=== PATIENT | female | born 1945 | race Caucasian/White ===

== ENCOUNTER → 2016-08-19 | Outpatient (CLI) | payer BC ==
[~2016-08-19] MED LIST: DULO60CA44 PO; METO1TAB69 PO; MULT-845 PO; OXYC-57 PO; PRLSR20 PO
[2016-08-19 12:20] LABS: BASO % 0.6 %; BASO ABS # 0.06 K/uL (0-0.2); COMPLETE YES; EOS % 5.6 %; HEMATOCRIT 39.9 % (37-47); IG% 0.2 %; LYMPH % 19.4 %; LYMPH ABS # 1.88 K/uL (1.2-3.4); MEAN CELL VOLUME 91.1 fL (80-100); MEAN CORPUSCULAR HEMOGLOBIN 32.2 pg (25-34); MEAN CORPUSCULAR HGB CONC 35.3 g/dl (32-36); MEAN PLATELET VOLUME 12.2 fL (7.4-10.4); MONO % 8.7 %; NEUT % 65.5 %; PLATELET COUNT 236 K/uL (130-400); RED BLOOD COUNT 4.38 M/uL (4.2-5.4); WHITE BLOOD COUNT 9.71 K/uL (4.8-10.8)
[2016-08-19 12:37] LABS: BLOOD UREA NITROGEN 20 mg/dl (7-18); CARBON DIOXIDE 29 mmol/L (21-32); CHLORIDE 102 mmol/L (98-107); CREATININE 0.95 mg/dl (0.60-1.20); GLUCOSE 93 mg/dl (70-99); POTASSIUM 3.8 mmol/L (3.5-5.1); SODIUM 139 mmol/L (136-145)
[2016-08-19 12:38] LABS: ALT/SGPT 26 U/L (12-78); AST/SGOT 17 U/L (15-37); CALCIUM 8.8 mg/dl (8.5-10.1)
[2016-08-19 12:46] LABS: ALB/GLOB RATIO 1.1 (0.9-2); ALKALINE PHOSPHATASE 89 U/L (45-117)
== END | disposition home or self-care (01) ==
LOC: C.LABPVFM 10:28
PROVIDERS: ATTEND Family Medicine
DX: M79.7 Fibromyalgia (principal); I10 Essential (primary) hypertension; F41.9 Anxiety disorder, unspecified

== ENCOUNTER → 2016-09-15 | Outpatient (CLI) | payer BC ==
[2016-09-15 19:14] LABS: LYME DISEASE AB IGG NEG (NEG); LYME DISEASE AB IGM NEG (NEG)
--- NOTE | 2016-09-23 08:27 | CODING QUERY MEDICAL NECESSITY ---
SUPPORTING DIAGNOSIS NEEDED A supporting diagnosis is required for the test/procedure performed on this patient in order for us to be reimbursed by the patient's insurance. Please provide a supporting diagnosis for the following test/procedure listed below next to the test name along with your signature. *If there is no additional diagnosis for this patient that would support the following test/procedure please document that below next to the test/procedure. Test(s)/Procedure(s) that require a supporting diagnosis: * VITAMIN D 25-HYDROXY DIAGNOSIS: * DOS: 09/15/16 Provider Signature: Date: Thank you Debbie Munoz Health Information Management Once completed, please kindly fax back to [phone] For questions please call [phone]
== END | disposition home or self-care (01) ==
LOC: C.LABPVFM 13:07
PROVIDERS: ATTEND Family Medicine
DX: R53.83 Other fatigue (principal); E55.9 Vitamin D deficiency, unspecified; S22.000A Wedge compression fracture of unspecified thoracic vertebra, initial encounter for closed fracture; M62.838 Other muscle spasm; X58.XXXA Exposure to other specified factors, initial encounter

== ENCOUNTER → 2017-04-13 | Outpatient (CLI) | payer BC ==
--- NOTE | 2017-04-13 16:43 | MAMMOGRAPHY REPORT ---
BILATERAL DIGITAL SCREENING MAMMOGRAM WITH CAD: 04/13/2017 CLINICAL HISTORY: Routine screening. Patient has no complaints. TECHNIQUE: Bilateral CC and MLO views were obtained. Current study was also evaluated with a Compute r Aided Detection (CAD) system. COMPARISON: Comparison is made to exams dated: 04/09/2016 mammogram, 04/08/2015 mammogram, 04/06/2014 ma mmogram, 03/13/2013 mammogram, 03/10/2012 mammogram - [facility], and 03/13/2011 mammogra [facility]. BREAST COMPOSITION: There are scattered areas of fibroglandular density in both breasts. FINDINGS: A linear scar marker overlies the upper outer anterior left breast. There are two 8 mm no dular asymmetries in the slightly medial anterior left breast, best seen on the CC view, may possibly project in the 6:00 axis as seen on the MLO view. Additional spot compression tomosynthesis views a nd possibly ultrasound are recommended for further characterization. There is a stable benign coarse calcification in the left upper outer quadrant and expected architecture intern ural distortion at the surgical site. No other suspicious mass, architectural distortion or cluster o f microcalcifications is seen. IMPRESSION: ACR BI-RADS CATEGORY 0: INCOMPLETE EVALUATION: NEED ADDITIONAL IMAGING EVALUATION The two 8 mm nodular asymmetries in the medial, anterior left breast need additional evaluation. The patient will be called to schedule an appointment. Approximately 10% of breast cancers are not detected with mammography. A negative mammographic report should not delay biopsy if a clinically suggestive mass is present. Amisha Millard M.D. ay/:04/13/2017 14:55:03 Special Education Instructor: Medina JOHNSON(R)(M)(BD), [facility] letter sent: Addl Imaging 0 BI-RADS Code: ACR BI-RADS Category 0: Incomplete Evaluation: Need Additional Imaging Evaluation
== END | disposition home or self-care (01) ==
LOC: C.MAMM 13:54
PROVIDERS: ATTEND Family Medicine
DX: Z12.31 Encounter for screening mammogram for malignant neoplasm of breast (principal); N64.89 Other specified disorders of breast

== ENCOUNTER → 2017-04-19 | Outpatient (CLI) | payer BC ==
--- NOTE | 2017-04-19 15:52 | MAMMOGRAPHY REPORT ---
UNILATERAL LEFT DIGITAL DIAGNOSTIC MAMMOGRAM TOMOSYNTHESIS AND TARGETED LEFT ULTRASOUND: 04/19/2017 CLINICAL HISTORY: 72-year-old woman called back from screening mammography for 2 nodular asymmetries in the left breast. TECHNIQUE: Left CC and MLO 2-D and tomosynthesis images were obtained. COMPARISON: Comparison is made to exams dated: 04/13/2017 mammogram, 04/09/2016 mammogram, 04/08/2015 [facility] mogram, 04/06/2014 mammogram, 03/13/2013 mammogram, and 03/10/2012 mammogram - [facility] BREAST COMPOSITION: There are scattered areas of fibroglandular density in the left breast. FINDINGS: There is expected architectural distortion and benign calcifications in the upper outer ant erior left breast, at a site of prior surgery. The spot compression views of the left breast demonst rate persistence of a circumscribed and lobulated, 5.5 x 12.0 x 5.5 mm mass. The second nodular asym metry partially effaces on the spot compression CC view and no other definite mass is seen on the cor responding tomosynthesis images. Likewise, no other suspicious abnormality is seen on the spot compr ession MLO views. No focal area of distortion or suspicious microcalcification. Targeted ultrasound was performed in the left breast with particular attention to the slightly medial breast and 12:00, retroareolar and 6:00 axes. A lobulated anechoic benign cyst is identified in the 8:00 periareolar left breast measuring 9.9 x 3.2 x 10.2 mm. There is an elongated parallel hypoecho ic cyst versus duct ectasia in the 9:00 left breast, 3 cm from the nipple, measuring 3.8 x 1.5 x 4.2 mm. A tubular oval parallel anechoic cyst versus focal duct ectasia in the 8:00 left breast, 3 cm fr om the nipple, measuring 3.5 x 1.3 x 2.6 mm. IMPRESSION: ACR-BI-RADS CATEGORY 3: PROBABLY BENIGN, TARGETED ULTRASOUND ACR-BI-RADS CATEGORY 3: PRO BABLY BENIGN 1. There is persistence of the more anterior of the two 8mm nodular asymmetries in the anterior left breast with the supplemental spot compression tomosynthesis images. This anterior asymmetry persist s as a lobulated and circumscribed mammographic mass and corresponds to a benign simple cyst on ultra sound. The second asymmetry effaces and no other suspicious sonographic correlate was seen on a few scattered areas of tiny benign cysts and/or duct ectasia. However, a short interval follow-up left d iagnostic tomosynthesis mammogram and possible repeat ultrasound is recommended to ensure stability i n 6 months, given the conspicuous nature of the second asymmetry on the initial screening exam. Approximately 10% of breast cancers are not detected with mammography. A negative mammographic report should not delay biopsy if a clinically suggestive mass is present. Amisha Millard M.D. ay/:04/19/2017 14:00:24 Clinical Nurse Educator: Mireya JOHNSON(Maeve)(M), [facility] letter sent: Follow Up Recommended 3 BI-RADS Code: ACR-BI-RADS Category 3: Probably Benign Ultrasound BI-RADS: ACR-BI-RADS Category 3: Pr obably Benign
== END | disposition home or self-care (01) ==
LOC: C.MAMM 09:53
PROVIDERS: ATTEND Family Medicine
DX: N63 Unspecified lump in breast (principal)

== ENCOUNTER → 2017-05-26 | Outpatient (CLI) | payer BC ==
[2017-05-26 13:20] LABS: ALT/SGPT 27 U/L (12-78); AST/SGOT 19 U/L (15-37); BLOOD UREA NITROGEN 14 mg/dl (7-18); BUN/CREATININE RATIO 17.8 (10-20); CALCIUM 8.9 mg/dl (8.5-10.1); CARBON DIOXIDE 28 mmol/L (21-32); CHLORIDE 106 mmol/L (98-107); CREATININE 0.81 mg/dl (0.60-1.20); GLUCOSE 96 mg/dl (70-99); SODIUM 140 mmol/L (136-145)
[2017-05-26 13:23] LABS: ALKALINE PHOSPHATASE 80 U/L (45-117); CHOLESTEROL 199 mg/dl (0-200); CHOLESTEROL/HDL RATIO 3.4; HDL CHOLESTEROL 59 mg/dl; LDL CHOLESTEROL CALCULATED 113 mg/dl; TRIGLYCERIDES 136 mg/dl (0-150); VERY LOW DENSITY LIPOPROT CALC 27 mg/dl
== END | disposition home or self-care (01) ==
LOC: C.LABPVFM 07:53
PROVIDERS: ATTEND Family Medicine
DX: Z00.00 Encounter for general adult medical examination without abnormal findings (principal); I10 Essential (primary) hypertension

== ENCOUNTER → 2017-06-02 | Outpatient (CLI) | payer BC ==
[~2017-06-02] MED LIST changes: +METO100T44 PO; -METO1TAB69 PO
--- NOTE | 2017-06-02 15:56 | DIAGNOSTIC IMAGING REPORT ---
STERNUM MIN 2 VIEWS CLINICAL HISTORY: Sternal pain. Patient with an object and her a crack COMPARISON STUDY: No previous studies for comparison. FINDINGS: The examination is limited from a technical standpoint due to the patient's large body habitus. No sternal fractures are visualized. It should be noted that sternal fractures can be occult on conventional radiographic evaluation IMPRESSION: No sternal fractures identified on conventional radiographic evaluation Electronically signed by: Mauricio Ramsay M.D. 06/02/2017 3:55 PM Dictated Date/Time: 06/02/2017 3:53 PM
== END | disposition home or self-care (01) ==
LOC: C.RADPV 15:22
PROVIDERS: ATTEND Family Medicine
DX: R07.89 Other chest pain (principal); F39 Unspecified mood [affective] disorder

== ENCOUNTER → 2017-08-30 | Outpatient (CLI) | payer BC | END | disposition home or self-care (01) | LOC: C.MAMM 09:12 | PROVIDERS: ATTEND Family Medicine | DX: Z13.820 Encounter for screening for osteoporosis (principal); M81.0 Age-related osteoporosis without current pathological fracture; M85.89 Other specified disorders of bone density and structure, multiple sites ==

== ENCOUNTER → 2017-10-18 | Outpatient (CLI) | payer BC ==
--- NOTE | 2017-10-18 15:19 | MAMMOGRAPHY REPORT ---
UNILATERAL LEFT DIGITAL DIAGNOSTIC MAMMOGRAM TOMOSYNTHESIS WITH CAD AND TARGETED LEFT ULTRASOUND: 10/07 CLINICAL HISTORY: 72-year-old woman presents for follow-up of two nodular asymmetries in the anterior left breast. At the time of diagnostic workup, only one nodular area persisted and was thought to c orrespond to a cyst identified in the 8:00 periareolar left breast on ultrasound. TECHNIQUE: Left breast tomosynthesis in addition to standard 2D mammography was performed. Current st udy was also evaluated with a Computer Aided Detection (CAD) system. COMPARISON: Comparison is made to exams dated: 04/19/2017 ultrasound, 04/19/2017 mammogram, 04/13/2017 m ammogram, 04/09/2016 mammogram, 04/08/2015 mammogram, and 04/06/2014 mammogram - [facility]. BREAST COMPOSITION: There are scattered areas of fibroglandular density in the left breast. FINDINGS: A linear scar marker overlies the upper outer middle one third of the left breast. There i s expected architectural distortion and benign calcification at the surgical site in the left upper o uter quadrant. On the 2D right CC view, 2 nodular asymmetries are again seen in the anterior breast, slightly medial to the posterior nipple line. The anterior nodular asymmetry versus mass measures 5 x 10 mm, and the posterior measures 4 x 5 mm. When comparing back to prior available mammograms, th e appearance is similar to the 2016, 2015, 2014 and 2012 mammograms, suggesting benignity. No [place] mass, architectural distortion or cluster of microcalcifications is seen in the left breast. Targeted ultrasound was performed in the medial left breast. A benign anechoic cyst is again seen in the 8:00 periareolar left breast, measuring 9.2 x 3.6 x 10.0 mm, correlating with the more anterior of the nodular asymmetries seen mammographically. In the 9:00 left breast, 3 cm from the nipple, the re is an isoechoic lobulated and circumscribed mass versus focal duct ectasia versus normal fat lobul e measuring 4.0 x 1.6 x 4.2 mm. This may correlate with the second more posterior nodular asymmetry in the slightly medial left breast. Given the mammographic stability and benign sonographic appearan ce this is probably benign. Incidental note is made of an anechoic benign simple cyst in the 12:00 l eft breast measuring 3 mm. IMPRESSION: ACR-BI-RADS CATEGORY 3: PROBABLY BENIGN, TARGETED ULTRASOUND ACR-BI-RADS CATEGORY 3: PRO BABLY BENIGN 1. The left 2D CC view appears similar to the prior screening mammogram performed on 04/13/2017, with 2 nodular asymmetries in the slightly medial anterior left breast. However, the appearance is also s omewhat similar dating back to the 2013 mammogram, and no definite suspicious sonographic correlate i dentified. However, another close follow-up left diagnostic tomosynthesis mammogram and repeat targe jason ultrasound with particular attention to the 9:00 axis is recommended in 6 months. 2. Annual right mammography will also be due at that time. These results and recommendations were discussed with the patient at the time of the exam. She tenta tively scheduled a follow-up appointment prior to leaving our department. Approximately 10% of breast cancers are not detected with mammography. A negative mammographic report should not delay biopsy if a clinically suggestive mass is present. Amisha Millard M.D. ay/:10/18/2017 11:29:34 Supervisor Filtration: Ana JOHNSON(Maeve)(M), [facility] letter sent: Follow Up Recommended 3 BI-RADS Code: ACR-BI-RADS Category 3: Probably Benign Ultrasound BI-RADS: ACR-BI-RADS Category 3: Pr obably Benign
== END | disposition home or self-care (01) ==
LOC: C.MAMM 10:40
PROVIDERS: ATTEND Family Medicine
DX: N64.9 Disorder of breast, unspecified (principal)

== ENCOUNTER → 2018-03-08 | Outpatient (CLI) | payer BC ==
[~2018-03-08] MED LIST changes: +AMLO5TAB3 PO; +CARV3.122 PO; +CHOL100010 PO; +Calcium PO
[2018-03-08 14:13] LABS: ALBUMIN 4.1 gm/dl (3.4-5.0); ALKALINE PHOSPHATASE 74 U/L (45-117); ALT/SGPT 26 U/L (12-78); AST/SGOT 22 U/L (15-37); BLOOD UREA NITROGEN 12 mg/dl (7-18); CALCIUM 9.1 mg/dl (8.5-10.1); CARBON DIOXIDE 29 mmol/L (21-32); CREATININE 0.77 mg/dl (0.60-1.20); GLUCOSE 99 mg/dl (70-99); PHOSPHORUS 3.5 mg/dl (2.5-4.9); SODIUM 136 mmol/L (136-145)
== END | disposition home or self-care (01) ==
LOC: C.LABPVFM 08:33
PROVIDERS: ATTEND Internal Medicine Endocrinology, Diabetes & Metabolism
DX: M81.0 Age-related osteoporosis without current pathological fracture (principal); I10 Essential (primary) hypertension

== ENCOUNTER → 2018-03-09 | Outpatient (CLI) | payer BC | END | disposition home or self-care (01) | LOC: C.LABPVFM 17:29 | PROVIDERS: ATTEND Internal Medicine Endocrinology, Diabetes & Metabolism | DX: I10 Essential (primary) hypertension (principal); M81.0 Age-related osteoporosis without current pathological fracture ==

== ENCOUNTER → 2018-03-21 | Day surgery (SDC) | payer BC ==
[~2018-03-21] VITALS: Ht 167.6 cm; Wt 83.5 kg
[~2018-03-21] MED LIST changes: +ACETAMINOPHEN 500 MG TAB PO SCH; +ZOLEDRONIC ACID INJ 5 MG in EMPTY BAG 0 ML IV SCH
[2018-03-21 10:11] VITALS: BP 151/81; PULSE 75; TEMP 36.9; O2SAT 98; Ht 167.6 cm; Wt 83.5 kg
== END | disposition home or self-care (01) ==
LOC: C.MTU 09:59
PROVIDERS: ATTEND Internal Medicine Endocrinology, Diabetes & Metabolism
DX: M81.0 Age-related osteoporosis without current pathological fracture (principal)

== ENCOUNTER 2020-01-31 03:12 | Observation (INO) ==
[2020-01-31] MEDS ORDERED: STAT IV Infusion **Titration per Protocol STA (03:43)
[2020-01-31] MEDS ORDERED: dilTIAZem HCl 5 MG/ML 5 ML VIAL IV STA (03:43)
--- NOTE | 2020-01-31 03:43 | Emergency Department Note ---
History of Present Illness General Chief complaint: Cardiac Assessment Stated complaint: CHEST TIGHTNESS,PAIN DOWN ARMS,SOB,PB UP Time Seen by Provider: 01/31/20 03:24 Source: patient Mode of arrival: ambulatory Limitations: no limitations History of Present Illness Provider complaint: Chest tightness Onset (ago): hour(s) 2 Location: chest Radiation: extremity Severity: moderate Pain Consistency: + colicky Maximum Pain Intensity: 3 Current Pain Intensity: 3 Quality: + constant Relieved By: + none Exacerbated By: + movement Associated symptoms: + nausea/vomiting; no headaches and no syncope Treatments prior to arrival: aspirin This is a 74-year-old female who presents from home complaining of abrupt onset of chest tightness that woke her up from sleep at 1:30 AM this morning. Patient states she felt in her usual state of health when she went to bed. Patient notes that on Wednesday she felt lightheaded and anxious and saw her family doctor. At that time her blood pressure was found to be elevated so her usual Coreg was doubled. Patient states over the weekend she felt slightly improved, and then this evening woke up with chest tightness, nausea. Patient denies any vomiting. Denies any recent fevers or URI symptoms. Patient denies any change in bowel or bladder function. Denies any lower extremity edema. Patient states the pain feels as though it radiates into her bilateral upper extremities and extends down to the level of the elbows. Patient states she did feel slightly lightheaded again and had a sense of a racing heart. Patient states she felt slightly anxious again tonight, but does not recall a sense of racing heart or palpitations with her anxiety on Wednesday. Patient denies any prior history of cardiac evaluation, CAD, or dysrhythmia. Patient denies any recent alcohol use. Denies any recent change in diet. Patient states no change in her usual 2 cups of coffee every morning. Pt seen during a time of high acuity and national emergency pandemic while wearing PPE. Home Medications Home Medications Medication Instructions Recorded Confirmed Type aspirin 81 mg chewable tablet 81 mg PO QAM 02/21/19 01/31/20 History cholecalciferol (vitamin D3) 25 1,000 units PO QAM #90 cap 05/15/19 01/31/20 History mcg (1,000 unit) capsule vitamin B complex 1 cap PO QAM 10/02/19 01/31/20 History meclizine 25 mg tablet 25 mg PO TID PRN #30 tab 10/10/19 01/31/20 Rx amitriptyline 25 mg tablet 25 mg PO DAILY #30 tab 01/26/20 01/31/20 Rx amlodipine 5 mg tablet 5 mg PO QAM #90 tab 01/26/20 01/31/20 Rx omeprazole 40 mg capsule,delayed 40 mg PO QAM #30 cap 01/26/20 01/31/20 Rx release apixaban [Eliquis] 5 mg PO BID 30 Days #60 tab 01/31/20 Rx carvedilol 12.5 mg PO BID 30 Days #60 tab 01/31/20 Rx Allergies Allergy/AdvReac Type Severity Reaction Status Date / Time celecoxib Allergy Intermediate RASH Verified 01/31/20 04:18 levofloxacin Allergy Unknown HIVES Verified 01/31/20 04:18 meperidine AdvReac Mild n/v Verified 01/31/20 04:18 Past Med/Surg History Medical History Diverticulitis (Resolved) Vertigo Surgical History H/O oral surgery H/O tubal ligation Hx of appendectomy (Resolved) Hx of cholecystectomy S/P colon resection S/P tonsillectomy Family History Mother Breast cancer Hypertension Father Colorectal cancer Hypertension Prostate cancer Denies family history of Ovarian cancer Diabetes Myocardial infarction Social History Preferred Language: Bahamian Communication Ability: Effective 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 and A total of 10 systems reviewed and were otherwise negative Physical Exam Vital Signs Vital Signs - 24 hr 01/31/20 05:16 01/31/20 05:30 01/31/20 05:52 Pulse Rate 144 H 135 H 135 H Pulse Rate from SpO2 Sensor 149 H 142 H 135 H Respiratory Rate 11 L 16 13 Blood Pressure 160/100 H 153/107 H 157/98 H Blood Pressure Mean 123 124 139 Pulse Oximetry 97 97 97 Oxygen Delivery Method Room Air Room Air Room Air 01/31/20 06:15 01/31/20 06:18 Pulse Rate 148 H 145 H Pulse Rate from SpO2 Sensor Respiratory Rate 13 Blood Pressure 134/108 H 134/108 H Blood Pressure Mean 114 Pulse Oximetry 96 Oxygen Delivery Method Room Air GENERAL: alert, anxious and uncomfortable appearing, well nourished, no distress, non-toxic EYE EXAM: normal conjunctiva, PERRL and EOM's grossly intact OROPHARYNX: no exudate, no erythema, lips, buccal mucosa, and tongue normal and mucous membranes are moist NECK: supple, no nuchal rigidity, no adenopathy, non-tender LUNGS: Clear to auscultation. Normal chest wall mechanics, no w/r/r HEART: no murmurs, S1 normal and S2 normal, patient found to be in rapid A. fib on telemetry in the 150s ABDOMEN: abdomen soft, non-tender, normo-active bowel sounds, no masses, no rebound or guarding. BACK: Back is symmetrical on inspection and there is no deformity, no midline tenderness, no CVA tenderness. SKIN: no rashes and no bruising UPPER EXTREMITIES: upper extremities are grossly normal. FROM, nml pulses b/l. LOWER EXTREMITIES: No pitting edema. FROM, nml pulses b/l. NEURO EXAM: Normal sensorium, cranial nerves II-XII grossly intact, normal speech, no gross weakness of arms, no gross weakness of legs. Gross sensation intact. Course Course 0345: Patient rechecked and updated. Still in a rapid atrial fibrillation. 0455: Patient's heart rate range slightly lower although still rapid. IV drip infusing. Patient updated on additional results. 0612: Case discussed with hospitalist who is seen and evaluated the patient at bedside. Administered Medications Discontinued Medications Aspirin (A[facility]in Chew) [facility] Stop: 03/01/20 08:59 Last Admin: 01/31/20 09:18 Dose: 81 mg Documented by: [id number] Carvedilol (Coreg) Confirm Administered Dose 12.5 mg .ROUTE .STK-MED ONE Stop: 01/31/20 07:00 Last Admin: 01/31/20 07:00 Dose: 12.5 mg Documented by: [id number] Carvedilol (Coreg) 12.5 mg PO BID BRANDYN Stop: 03/01/20 09:14 Last Admin: 01/31/20 09:57 Dose: 12.5 mg Documented by: [id number] Diltiazem HCl (Cardizem) 20 mg IV NOW STA Stop: 01/31/20 03:44 Last Admin: 01/31/20 03:51 Dose: 20 mg Documented by: [id number] Cosigned by: [id number] Famotidine (Pepcid 20mg Iv Push) 20 mg IV ONE STA Stop: 01/31/20 05:00 Last Admin: 01/31/20 05:19 Dose: 20 mg Documented by: [id number] Heparin Sodium/Dextrose () 1 ea N/A ONE ONE; Protocol Stop: 01/31/20 04:53 Last Admin: 01/31/20 05:20 Dose: 1 ea Documented by: [id number] Heparin Sodium/Dextrose (Heparin Sodium/Dextrose) Confirm Administered Dose 25,000 units IV .STK-MED ONE Stop: 01/31/20 05:03 Last Admin: 01/31/20 05:20 Dose: Not Given Documented by: [id number] Diltiazem HCl 125 mg/ Dextrose 125 mls @ 5 mls/hr IV .Q24H BRANDYN; Protocol Stop: 03/01/20 03:44 Last Titration: 01/31/20 08:07 Dose: 0 mg/hr, 0 mls/hr Documented by: [id number] Cosigned by: [id number] Titration: 01/31/20 06:24 Dose: 0 mg/hr, 0 mls/hr Documented by: [id number] Cosigned by: [id number] Titration: 01/31/20 05:41 Dose: 15 mg/hr, 15 mls/hr Documented by: [id number] Cosigned by: [id number] Titration: 01/31/20 04:46 Dose: 10 mg/hr, 10 mls/hr Documented by: [id number] Cosigned by: [id number] Admin: 01/31/20 04:33 Dose: 5 mg/hr, 5 mls/hr Documented by: [id number] Cosigned by: [id number] Sodium Chloride (Nss 1000ml) 1,000 mls @ 125 mls/hr IV .Q8H BRANDYN Stop: 03/01/20 03:44 Last Admin: 01/31/20 03:55 Dose: 125 mls/hr Documented by: [id number] Heparin Sodium/Dextrose (Heparin Sodium/Dextrose) 25,000 units in 500 mls @ 16 mls/hr IV .Q24H BRANDYN; Protocol Stop: 03/01/20 04:59 Last Admin: 01/31/20 05:19 Dose: 800 units/hr, 16 mls/hr Documented by: [id number] Cosigned by: [id number] Potassium Chloride (K Silas / Wtr) 10 meq in 100 mls @ 100 mls/hr IV ONE ONE Stop: 01/31/20 07:41 Last Infusion: 01/31/20 08:08 Dose: 0 mls/hr Documented by: [id number] Admin: 01/31/20 06:48 Dose: 100 mls/hr Documented by: [id number] Potassium Chloride/Sodium Chloride (Normal Saline W/20 Meq Kcl) 20 meq in 1,000 mls @ 100 mls/hr IV .Q10H BRANDYN Stop: 03/01/20 08:04 Last Admin: 01/31/20 09:17 Dose: 100 mls/hr Documented by: [id number] Metoprolol Tartrate (Lopressor) 5 mg IV NOW STA Stop: 01/31/20 06:15 Last Admin: 01/31/20 06:26 Dose: Not Given Documented by: [id number] Metoprolol Tartrate (Lopressor) Confirm Administered Dose 5 mg IV .STK-MED ONE Stop: 01/31/20 06:18 Last Admin: 01/31/20 06:18 Dose: 5 mg Documented by: [id number] Metoprolol Tartrate (Lopressor) 5 mg IV Q5M PRN PRN Reason: Tachycardia Stop: 03/01/20 06:28 Last Admin: 01/31/20 06:54 Dose: 5 mg Documented by: [id number] Metoprolol Tartrate (Lopressor) 5 mg IV NOW STA Stop: 01/31/20 06:30 Last Admin: 01/31/20 06:39 Dose: 5 mg Documented by: [id number] Miscellaneous () 1 ea N/A NOW STA Stop: 01/31/20 03:44 Last Admin: 01/31/20 04:33 Dose: 1 ea Documented by: [id number] Pantoprazole Sodium (Protonix) 40 mg PO [facility] Stop: 03/01/20 08:59 Last Admin: 01/31/20 09:18 Dose: 40 mg Documented by: [id number] Potassium Chloride (Klor-Con M20) 40 meq PO NOW STA Stop: 01/31/20 06:39 Last Admin: 01/31/20 06:48 Dose: 40 meq Documented by: [id number] Potassium Chloride/Sodium Chloride (Normal Saline W/20 Meq Kcl) Confirm Administered Dose 20 meq .ROUTE .STK-MED ONE Stop: 01/31/20 06:41 Last Admin: 01/31/20 06:48 Dose: 20 meq Documented by: [id number] Vitamin B Complex (Vitamin B Complex) 1 tab PO [facility] Stop: 03/01/20 08:59 Last Admin: 01/31/20 09:17 Dose: 1 tab Documented by: [id number] Vitamin D (Vitamin D3) 1,000 units PO [facility] Stop: 03/01/20 08:59 Last Admin: 01/31/20 09:17 Dose: 1,000 units Documented by: [id number] Critical Care Time Critical Care Time: Yes Total Critical Care Time: 38 Critical care of 38 min performed to assess and manage high likelihood of life- threatening dysrhythmia, involving labs and imaging performed with assessment to evaluate atrial fibrillation with RVR diagnosis with frequent reassessment. This time includes bedside time, treatment discussions with patient/family/consultants, documentation time and excludes procedure time. Medical Decision Making Differential Diagnosis Differential diagnoses includes but is not limited to acute coronary syndrome, myocardial infarction, pericarditis, pulmonary embolus, aortic dissection, pneumonia, pneumothorax, musculoskeletal, shingles, esophageal. Medical Records Attestation: I reviewed the patient's medical records. Home Medications Current Medication List: was personally reviewed by me Laboratory Data Result diagrams: 01/31/20 03:40 01/31/20 05:58 Lab Results 01/31/20 01/31/20 01/31/20 Range/Units 03:40 03:40 03:40 WBC 8.65 (4.8-10.8) K/uL RBC 5.13 (4.2-5.4) M/uL Hgb 16.8 H (12.0-16.0) g/dL Hct 47.3 H (37-47) % MCV 92.2 (80-100) fL MCH 32.7 (25-34) pg MCHC 35.5 (32-36) g/dL RDW Std Deviation 41.4 (36.4-46.3) fL RDW Coeff of Manju 12.2 (11.5-14.5) % Plt Count 268 (130-400) K/uL MPV 11.9 H (7.4-10.4) fL Immature Gran % (Auto) 0.3 % Neut % (Auto) 64.0 % Lymph % (Auto) 21.3 % [place] % (Auto) 9.7 % Eos % (Auto) 4.2 % Baso % (Auto) 0.5 % Neut # (Auto) 5.54 (1.4-6.5) K/uL Lymph # (Auto) 1.84 (1.2-3.4) K/uL [place] # (Auto) 0.84 H (0.11-0.59) K/uL Eos # (Auto) 0.36 (0-0.5) K/uL Baso # (Auto) 0.04 (0-0.2) K/uL Immature Gran # (Auto) 0.03 H (0.00-0.02) K/uL Sodium 138 (136-145) mmol/L Potassium (3.5-5.1) mmol/L Chloride 103 (98-107) mmol/L Carbon Dioxide 28 (21-32) mmol/L Anion Gap 7.0 (3-11) BUN 13 (7-18) mg/dl Creatinine 0.80 (0.6-1.2) mg/dl Est Cr Clr Drug Dosing 68.2 ml/min Est GFR ( Amer) 84.8 Est GFR (Non-Af Amer) 73.1 BUN/Creatinine Ratio 16.9 (10-20) Glucose 118 H (70-99) mg/dl Calcium 9.7 (8.5-10.1) mg/dl Magnesium (1.8-2.4) mg/dl Total Bilirubin 0.7 (0.2-1) mg/dl AST (15-37) U/L ALT 24 (12-78) U/L Alkaline Phosphatase 99 (45-117) U/L Troponin I < 0.015 (0-0.045) ng/ml NT-Pro-B Natriuret Pep 426 (0-900) pg/ml Total Protein 9.0 H (6.4-8.2) gm/dl Albumin 4.2 (3.4-5.0) gm/dl Globulin 4.8 H (2.5-4.0) gm/dl Albumin/Globulin Ratio 0.9 (0.9-2) Lipase 133 (73-393) U/L TSH 5.350 H (0.300-4.500) uIu/ml Free T4 1.14 (0.8-1.6) ng/dl Lyme Disease IgG Ab Cancelled Lyme Disease IgM Ab Cancelled 01/31/20 01/31/20 01/31/20 Range/Units 05:21 05:21 05:58 WBC (4.8-10.8) K/uL RBC (4.2-5.4) M/uL Hgb (12.0-16.0) g/dL Hct (37-47) % MCV (80-100) fL MCH (25-34) pg MCHC (32-36) g/dL RDW Std Deviation (36.4-46.3) fL RDW Coeff of Manju (11.5-14.5) % Plt Count (130-400) K/uL MPV (7.4-10.4) fL Immature Gran % (Auto) % Neut % (Auto) % Lymph % (Auto) % [place] % (Auto) % Eos % (Auto) % Baso % (Auto) % Neut # (Auto) (1.4-6.5) K/uL Lymph # (Auto) (1.2-3.4) K/uL [place] # (Auto) (0.11-0.59) K/uL Eos # (Auto) (0-0.5) K/uL Baso # (Auto) (0-0.2) K/uL Immature Gran # (Auto) (0.00-0.02) K/uL Sodium (136-145) mmol/L Potassium Cancelled 3.5 (3.5-5.1) mmol/L Chloride (98-107) mmol/L Carbon Dioxide (21-32) mmol/L Anion Gap (3-11) BUN (7-18) mg/dl Creatinine (0.6-1.2) mg/dl Est Cr Clr Drug Dosing ml/min Est GFR ( Amer) Est GFR (Non-Af Amer) BUN/Creatinine Ratio (10-20) Glucose (70-99) mg/dl Calcium (8.5-10.1) mg/dl Magnesium Cancelled 2.2 (1.8-2.4) mg/dl Total Bilirubin (0.2-1) mg/dl AST Cancelled 18 (15-37) U/L ALT (12-78) U/L Alkaline Phosphatase (45-117) U/L Troponin I (0-0.045) ng/ml NT-Pro-B Natriuret Pep (0-900) pg/ml Total Protein (6.4-8.2) gm/dl Albumin (3.4-5.0) gm/dl Globulin (2.5-4.0) gm/dl Albumin/Globulin Ratio (0.9-2) Lipase (73-393) U/L TSH (0.300-4.500) uIu/ml Free T4 (0.8-1.6) ng/dl Lyme Disease IgG Ab Cancelled Lyme Disease IgM Ab Cancelled 01/31/20 Range/Units 05:58 WBC (4.8-10.8) K/uL RBC (4.2-5.4) M/uL Hgb (12.0-16.0) g/dL Hct (37-47) % MCV (80-100) fL MCH (25-34) pg MCHC (32-36) g/dL RDW Std Deviation (36.4-46.3) fL RDW Coeff of Manju (11.5-14.5) % Plt Count (130-400) K/uL MPV (7.4-10.4) fL Immature Gran % (Auto) % Neut % (Auto) % Lymph % (Auto) % [place] % (Auto) % Eos % (Auto) % Baso % (Auto) % Neut # (Auto) (1.4-6.5) K/uL Lymph # (Auto) (1.2-3.4) K/uL [place] # (Auto) (0.11-0.59) K/uL Eos # (Auto) (0-0.5) K/uL Baso # (Auto) (0-0.2) K/uL Immature Gran # (Auto) (0.00-0.02) K/uL Sodium (136-145) mmol/L Potassium (3.5-5.1) mmol/L Chloride (98-107) mmol/L Carbon Dioxide (21-32) mmol/L Anion Gap (3-11) BUN (7-18) mg/dl Creatinine (0.6-1.2) mg/dl Est Cr Clr Drug Dosing ml/min Est GFR ( Amer) Est GFR (Non-Af Amer) BUN/Creatinine Ratio (10-20) Glucose (70-99) mg/dl Calcium (8.5-10.1) mg/dl Magnesium (1.8-2.4) mg/dl Total Bilirubin (0.2-1) mg/dl AST (15-37) U/L ALT (12-78) U/L Alkaline Phosphatase (45-117) U/L Troponin I (0-0.045) ng/ml NT-Pro-B Natriuret Pep (0-900) pg/ml Total Protein (6.4-8.2) gm/dl Albumin (3.4-5.0) gm/dl Globulin (2.5-4.0) gm/dl Albumin/Globulin Ratio (0.9-2) Lipase (73-393) U/L TSH (0.300-4.500) uIu/ml Free T4 (0.8-1.6) ng/dl Lyme Disease IgG Ab Negative Lyme Disease IgM Ab Negative Imaging Data My Impression: X-ray: I interpreted the following studies. Chest: A single view study of the chest was reviewed and was negative for cardiomegaly, focal infiltrate, effusion, pulmonary edema, or wide mediastinum. ECG Data Attestation: I personally reviewed and interpreted this ECG as follows: Indication: + chest pain Rate (beats per minute): 149 Rhythm: + atrial fibrillation ECG Intervals/blocks: + Normal QRS and + Normal QT ECG [place]: + Normal ECG ST segments: + Nonspecific ST abnormalities Blood Pressure Blood Pressure Findings: Elevated blood pressure Blood Pressure Disposition: further management by hospitalist ANNE Cloud Patient presenting with atypical symptoms over the last 5 days, worse tonight that woke her up from sleep. Patient found to have atrial fibrillation with RVR. Patient was given Cardizem bolus and started on a drip. Heparin drip was also added as a precaution. While patient noticed an abrupt onset of pain this evening, patient admits to not feeling well 5 days ago with a sense of anxiety, lightheadedness, and increased blood pressure. Due to no prior history of atrial fibrillation, it is possible that 5 days ago she had already begun having intermittent episodes or episodes that were maybe not as fast leading to less severe symptoms compared to tonight. Patient's labs are reassuring. A recollect needed to be done twice for her potassium, magnesium, and AST. This was still pending at the time my discussion with the hospitalist. Patient otherwise slowly felt improved with additional rate control. Patient was made aware of all results and plan. I do not suspect occult infectious etiology. I do not suspect PE. An order was placed for continuous cardiac monitoring. The monitor shows a rate of 147_ with atrial fibrillation rhythm. Impression & Plan Atrial fibrillation with RVR, Hypertension, Lightheadedness, Atypical chest pain Discharge Plan Visit Data *Final* Discharge Date/Time: 01/31/20 07:12 Chief Complaint: Cardiac Assessment Stated Complaint: CHEST TIGHTNESS,PAIN DOWN ARMS,SOB,PB UP ED Provider: Veronica Alarcon Discharge Problem: Atrial fibrillation with RVR, Hypertension, Lightheadedness, Atypical chest pain Patient Disposition: Admitted As Inpatient Condition: Good Discharge Instructions Interventions: ED Discharge Assessment Last Done: 01/31/20 07:12 Discharge Problem: Hypertension Qualifiers: Hypertension type: essential hypertension Qualified Code(s): I10 - Essential ( primary) hypertension
[2020-01-31] MEDS ORDERED: SODIUM CHLORIDE 0.9% 1000ML 1,000 ML IV SCH (03:45)
[2020-01-31] MEDS ORDERED: dilTIAZem HCL 125 MG in DEXTROSE 5% 100 ML IV SCH (03:45)
[2020-01-31 03:56] LABS: Basophils # (auto) 0.04 K/uL (0-0.2); Basophils % (auto) 0.5 %; Eosinophils # (auto) 0.36 K/uL (0-0.5); Eosinophils % (auto) 4.2 %; Hematocrit (blood only) 47.3 % (37-47); Hemoglobin 16.8 g/dL (12.0-16.0); Immature Granulocytes # (auto) 0.03 K/uL (0.00-0.02); Immature Granulocytes % (auto) 0.3 %; Lymphocytes # (auto) 1.84 K/uL (1.2-3.4); Lymphocytes % (auto) 21.3 %; Mean Corpuscular Hemoglobin 32.7 pg (25-34); Mean Corpuscular Hgb Conc 35.5 g/dL (32-36); Mean Corpuscular Volume 92.2 fL (80-100); Mean Platelet Volume 11.9 fL (7.4-10.4); Monocytes # (auto) 0.84 K/uL (0.11-0.59); Monocytes % (auto) 9.7 %; Neutrophils # (auto) 5.54 K/uL (1.4-6.5); Platelet Count 268 K/uL (130-400); RDW Coefficient of Variation 12.2 % (11.5-14.5); RDW Standard Deviation 41.4 fL (36.4-46.3); Red Blood Count 5.13 M/uL (4.2-5.4); White Blood Count 8.65 K/uL (4.8-10.8)
[2020-01-31 04:32] LABS: Alanine Aminotransferase 24 U/L (12-78); Albumin Globulin Ratio 0.9 (0.9-2); Albumin Level 4.2 gm/dl (3.4-5.0); Alkaline Phosphatase 99 U/L (45-117); BUN Creatinine Ratio 16.9 (10-20); Bilirubin,Total 0.7 mg/dl (0.2-1); Blood Urea Nitrogen 13 mg/dl (7-18); Calcium 9.7 mg/dl (8.5-10.1); Carbon Dioxide 28 mmol/L (21-32); Chloride 103 mmol/L (98-107); Creatinine Clr Calc Pharmacy 68.2 ml/min; Est GFR (African American) 84.8; Est GFR (Non-African American) 73.1; Globulin 4.8 gm/dl (2.5-4.0); Glucose 118 mg/dl (70-99); Lipase 133 U/L (73-393); NT Pro B Type Natriuretic Pept 426 pg/ml (0-900); Sodium 138 mmol/L (136-145); Troponin I < 0.015 ng/ml (0-0.045)
[2020-01-31 04:46] LABS: T4 Free Thyroxine 1.14 ng/dl (0.8-1.6)
[2020-01-31] MEDS ORDERED: Heparin IV Low Dose *NO* Bolus ONE (04:52)
[2020-01-31] MEDS ORDERED: FAMOTIDINE 20MG/5ML IV PUSH IV STA (04:59)
[2020-01-31] MEDS ORDERED: HEPARIN SODIUM/DEXTROSE 25,000 UNITS/500 ML BAG IV SCH (05:00)
[2020-01-31] MEDS ORDERED: HEPARIN 25000 UNIT/500 ML D5W IV ONE (05:02)
[2020-01-31] MEDS ORDERED: METOPROLOL TARTRATE 1 MG/ML VIAL IV STA ×2 (06:14→06:29)
[2020-01-31] MEDS ORDERED: METOPROLOL TARTRATE 1 MG/ML VIAL IV ONE (06:17)
[2020-01-31] MEDS ORDERED: METOPROLOL TARTRATE 1 MG/ML VIAL IV PRN (06:29)
[2020-01-31 06:32] LABS: Potassium 3.5 mmol/L (3.5-5.1)
[2020-01-31 06:37] LABS: Magnesium 2.2 mg/dl (1.8-2.4)
[2020-01-31] MEDS ORDERED: POTASSIUM CHLORIDE 20 MEQ TABCR PO STA (06:38)
[2020-01-31] MEDS ORDERED: NSS+KCL 20 MEQ 1000ML ONE (06:40)
--- NOTE | 2020-01-31 06:41 | History & Physical Report ---
Date of Service January 31, 2020 Assessment & Plan (1) Atrial fibrillation with RVR: atrial fib with RVR/HTN Hold amlodipine. Increase carvedilol from 6.25 to 12.5mg po bid and give first dose now (7A) Lopressor 5mg IV q4h PRN HR > 110, given 3 successive doses in the ED Q 5 minutes NSS + KCl 20 meq at 100ml/hr. optimize potassium, given Klor-Con 40 mEq p.o. x1, and K rider 10 mEq x 1 Hold amitriptylline Present on Admission?: Yes (2) Hypertension: see above. Present on Admission?: Yes (3) Fibromyalgia: fibromyalgia/depression- Hold amitriptylline Present on Admission?: Yes (4) Depression: see above Present on Admission?: Yes (5) Acid reflux disease: change omeprazole to pantoprazole Present on Admission?: Yes History of Present Illness Chief Complaint: The patient presented to the ED with complaint of chest tightness, pain down both arms and SOB that began prior to arrival. Primary Care Provider: Tyrese Morrell DO The patient is a 74 yo female with a PMH including HTN, Palpitations, fibromyalgia, Depression and GERD. She developed the acute onset of symptoms as noted above. Work up in the ED included EKG and monitoring noting Atrial fib w ith RVR. She was initially started by the ED on a cardizem drip, that was maxed to 15, after a 20mg IV bolus, without improvement. She was then changed to lopressor 5mg IV q5 min x 3. Her labs then showed a K of 3.5, and was givne Klor Con 40mg PO, a KCL 10 MEQ rider, and NSS + KCl 20meq at 100ml/hr. Allergies Allergy/AdvReac Type Severity Reaction Status Date / Time celecoxib Allergy Intermediate RASH Verified 01/31/20 04:18 levofloxacin Allergy Unknown HIVES Verified 01/31/20 04:18 meperidine AdvReac Mild n/v Verified 01/31/20 04:18 Home Medications Home Medications Medication Instructions Recorded Confirmed Type aspirin 81 mg chewable tablet 81 mg PO QAM 02/21/19 01/31/20 History cholecalciferol (vitamin D3) 25 1,000 units PO QAM #90 cap 05/15/19 01/31/20 History mcg (1,000 unit) capsule vitamin B complex 1 cap PO QAM 10/02/19 01/31/20 History meclizine 25 mg tablet 25 mg PO TID PRN #30 tab 10/10/19 01/31/20 Rx amitriptyline 25 mg tablet 25 mg PO DAILY #30 tab 01/26/20 01/31/20 Rx amlodipine 5 mg tablet 5 mg PO QAM #90 tab 01/26/20 01/31/20 Rx carvedilol 6.25 mg tablet 6.25 mg PO BID #60 tab 01/26/20 01/31/20 Rx omeprazole 40 mg capsule,delayed 40 mg PO QAM #30 cap 01/26/20 01/31/20 Rx release Past Med/Surg History Medical History Diverticulitis (Resolved) Vertigo Surgical History H/O oral surgery H/O tubal ligation Hx of appendectomy (Resolved) Hx of cholecystectomy S/P colon resection S/P tonsillectomy Family History Mother Breast cancer Hypertension Father Colorectal cancer Hypertension Prostate cancer Denies family history of Ovarian cancer Diabetes Myocardial infarction Social History marital status: Current Living Situation: Spouse current occupational status: retired Feels Safe at Home: Yes Smoking Status: Never smoker Second Hand Exposure: No ; Hx Alcohol Use: Yes Alcohol type: wine Alcohol Intake Frequency: Rarely Hx Substance Use: No caffeine: Yes (coffee) Dental Care, Regularly: No Physical Activity Frequency: Other Physical Activity Frequency Comment: Pt states rarely Seatbelt Use: always Sunscreen Use: No Review of Systems Review of Systems: The patient denies cough, lower extremity swelling, sore throat, fevers, chills, sweats, nausea, vomiting, diarrhea , constipation, abdominal pain, pelvic pain, blood in urine or stool, dysuria, urinary frequency or urgency, lightheadedness, dizziness, headache, memory loss, loss of consciousness, rash, abnormal bruising or bleeding, imbalance, focal or generalized weakness, numbness or tingling in arms or legs, generalized arthralgias or myalgias, back or neck pain, or night sweats. The review of systems is otherwise negative other than for that already noted above, and at least 10 systems have been reviewed. Physical Exam Physical Exam: The patient is awake, alert and oriented 3, well developed and well nourished, normocephalic and atraumatic, lying in bed and in no acute distress. HEENT--PERRL, EOMI, mucous membranes and oropharynx dry. Neck--supple. No JVD. No bruits. Thyroid normal, trachea midline, no adenopathy. Heart--irregularly irregular and tachycardic. No murmurs, rubs or gallops. Lungs--clear bilaterally, no respiratory distress, no accessory muscle use. Abdomen--normal bowel sounds and soft. Nontender. Nondistended. Extremities--no cyanosis or clubbing. No edema. There are good distal pulses b/l. Dermatologic--normal skin turgor, normal color, no abnormal lymph nodes, no rash. Neurologic--cranial nerves II through XII grossly intact. Rheumatologic--normal range of motion. Psychiatric--normal affect. Results & Data Results & Data ([facility]) Vital Signs (Past 12 Hours) Vital Signs Temp Pulse Resp BP Pulse Ox 01/31/20 06:18 145 H 134/108 H 01/31/20 06:15 148 H 13 134/108 H 96 01/31/20 05:52 135 H 13 157/98 H 97 01/31/20 05:30 135 H 16 153/107 H 01/31/20 05:16 144 H 11 L 160/100 H 97 01/31/20 05:00 139 H 14 107/85 96 01/31/20 04:46 146 H 17 01/31/20 04:45 146 H 16 158/96 H 96 01/31/20 04:40 161 H 14 01/31/20 04:35 131 H 20 96 01/31/20 04:30 117 H 15 131/94 96 01/31/20 04:25 134 H 15 97 01/31/20 04:20 131 H 14 97 01/31/20 04:16 117 H 16 96 01/31/20 04:15 128 H 14 144/129 H 96 01/31/20 04:10 133 H 14 96 01/31/20 04:01 109 H 14 138/85 93 01/31/20 03:55 127 H 15 122/92 95 01/31/20 03:53 154 H 12 163/99 H 97 01/31/20 03:45 131 H 14 179/104 H 97 01/31/20 03:33 151 H 13 178/124 H 97 01/31/20 03:17 97.5 F L 159 H 24 156/95 H 95 Laboratory Results Laboratory Results WBC 8.65 K/uL (4.8-10.8) 01/31/20 03:40 RBC 5.13 M/uL (4.2-5.4) 01/31/20 03:40 Hgb 16.8 g/dL (12.0-16.0) H 01/31/20 03:40 Hct 47.3 % (37-47) H 01/31/20 03:40 MCV 92.2 fL (80-100) 01/31/20 03:40 MCH 32.7 pg (25-34) 01/31/20 03:40 MCHC 35.5 g/dL (32-36) 01/31/20 03:40 RDW Std Deviation 41.4 fL (36.4-46.3) 01/31/20 03:40 RDW Coeff of Manju 12.2 % (11.5-14.5) 01/31/20 03:40 Plt Count 268 K/uL (130-400) 01/31/20 03:40 MPV 11.9 fL (7.4-10.4) H 01/31/20 03:40 Immature Gran % (Auto) 0.3 % 01/31/20 03:40 Neut % (Auto) 64.0 % 01/31/20 03:40 Lymph % (Auto) 21.3 % 01/31/20 03:40 Ralls % (Auto) 9.7 % 01/31/20 03:40 Eos % (Auto) 4.2 % 01/31/20 03:40 Baso % (Auto) 0.5 % 01/31/20 03:40 Neut # (Auto) 5.54 K/uL (1.4-6.5) 01/31/20 03:40 Lymph # (Auto) 1.84 K/uL (1.2-3.4) 01/31/20 03:40 Ralls # (Auto) 0.84 K/uL (0.11-0.59) H 01/31/20 03:40 Eos # (Auto) 0.36 K/uL (0-0.5) 01/31/20 03:40 Baso # (Auto) 0.04 K/uL (0-0.2) 01/31/20 03:40 Immature Gran # (Auto) 0.03 K/uL (0.00-0.02) H 01/31/20 03:40 Sodium 138 mmol/L (136-145) 01/31/20 03:40 Potassium 3.5 mmol/L (3.5-5.1) 01/31/20 05:58 Chloride 103 mmol/L (98-107) 01/31/20 03:40 Carbon Dioxide 28 mmol/L (21-32) 01/31/20 03:40 Anion Gap 7.0 (3-11) 01/31/20 03:40 BUN 13 mg/dl (7-18) 01/31/20 03:40 Creatinine 0.80 mg/dl (0.6-1.2) 01/31/20 03:40 Est Cr Clr Drug Dosing 68.2 ml/min 01/31/20 03:40 Est GFR ( Amer) 84.8 01/31/20 03:40 Est GFR (Non-Af Amer) 73.1 01/31/20 03:40 BUN/Creatinine Ratio 16.9 (10-20) 01/31/20 03:40 Glucose 118 mg/dl (70-99) H 01/31/20 03:40 Calcium 9.7 mg/dl (8.5-10.1) 01/31/20 03:40 Magnesium 2.2 mg/dl (1.8-2.4) 01/31/20 05:58 Total Bilirubin 0.7 mg/dl (0.2-1) 01/31/20 03:40 AST 18 U/L (15-37) 01/31/20 05:58 ALT 24 U/L (12-78) 01/31/20 03:40 Alkaline Phosphatase 99 U/L (45-117) 01/31/20 03:40 Troponin I < 0.015 ng/ml (0-0.045) 01/31/20 03:40 NT-Pro-B Natriuret Pep 426 pg/ml (0-900) 01/31/20 03:40 Total Protein 9.0 gm/dl (6.4-8.2) H 01/31/20 03:40 Albumin 4.2 gm/dl (3.4-5.0) 01/31/20 03:40 Globulin 4.8 gm/dl (2.5-4.0) H 01/31/20 03:40 Albumin/Globulin Ratio 0.9 (0.9-2) 01/31/20 03:40 Lipase 133 U/L (73-393) 01/31/20 03:40 TSH 5.350 uIu/ml (0.300-4.500) H 01/31/20 03:40 Free T4 1.14 ng/dl (0.8-1.6) 01/31/20 03:40 Lyme Disease IgG Ab Cancelled 01/31/20 05:21 Lyme Disease IgM Ab Cancelled 01/31/20 05:21 Code Status & VTE Plan Code Status full code VTE Prophylaxis Plan VTE Prophylaxis will be ordered: Yes PG Care Time/CCT Total # of Minutes Spent Total Time Spent with Patient: Total time spent is greater than 50% in coordinat ion of care (as documented) at patient's floor/unit and/or counseling patient: Coding Level of Care Code 93859 Initial Inpt Care Lvl 3 Diagnoses Atrial fibrillation with RVR I48.91 Hypertension I10 Fibromyalgia M79.7 Depression F32.9 Acid reflux disease K21.9
[2020-01-31] MEDS ORDERED: POTASSIUM CHLORIDE / WTR 10 MEQ/100 ML PLCT IV ONE (06:42)
--- NOTE | 2020-01-31 06:44 | XRay Report ---
XR chest 1V portable CLINICAL HISTORY: chest pain pain COMPARISON STUDY: 10/02/2019 FINDINGS: Chronic pleural and parenchymal changes left base. Lungs otherwise appear clear. Diaphragms are smooth. IMPRESSION: Chronic change. No acute process. ACT 112: Negative or not required by law. The above report was generated using voice recognition software. It may contain grammatical, syntax or spelling errors. Electronically signed by: Madi Levin M.D. 01/31/2020 6:43 AM
[2020-01-31] MEDS ORDERED: carvediloL 12.5 MG TAB ONE (06:59)
[2020-01-31] MEDS ORDERED: ONDANSETRON INJ 2 MG/ML 2 ML VIAL IV PRN (08:05)
[2020-01-31] MEDS ORDERED: NSS + 20MEQ KCL 20 MEQ/1,000 ML BAG IV SCH (08:05)
[2020-01-31] MEDS ORDERED: ALUMINUM/MAGNESIUM SUSP 30 ML UDC PO PRN (08:05)
[2020-01-31] MEDS ORDERED: MAGNESIUM HYDROXIDE SUSP 30 ML UDC PO PRN (08:05)
[2020-01-31] MEDS ORDERED: ACETAMINOPHEN 325 MG TAB PO PRN (08:05)
[2020-01-31 08:25] LABS: Lyme Ab IgG w/WB Rflx Negative (Negative)
[2020-01-31 08:26] LABS: Lyme Ab IgM w/WB Rflx Negative (Negative)
[2020-01-31] MEDS ORDERED: MECLIZINE HCL 25 MG TAB PO PRN (08:26)
[2020-01-31] MEDS ORDERED: CHOLECALCIFEROL 1,000 UNITS 25 MCG TAB PO SCH (09:00)
[2020-01-31] MEDS ORDERED: ASPIRIN 81 MG CHEW PO SCH (09:00)
[2020-01-31] MEDS ORDERED: VITAMIN B COMPLEX TAB PO SCH (09:00)
[2020-01-31] MEDS ORDERED: PANTOprazole 40 MG TAB PO SCH (09:00)
[2020-01-31] MEDS ORDERED: carvediloL 12.5 MG TAB PO SCH (09:15)
--- NOTE | 2020-01-31 11:00 | Cardiology Consultation ---
Date of Consultation January 31, 2020 Assessment & Plan (1) Atrial fibrillation with RVR: -agree with increased dose of carvedilol -agree with heparin drip -would start long-term anticoagulation with a novel agent (CHADSVASc = 2) -elevated TSH noted. (2) Hypertension: -adequate control on carvedilol. (3) Heart palpitations: -as above. History of Present Illness Attending Physician: Kareem Rich DO History of Present Illness Mrs. Elkins is a 74-year-old female admitted earlier today with atrial fibrillation and a rapid ventricular response. This consultation was ordered to assist in her cardiac management. The patient was in her usual state of health until 130 this morning when she awoke from a sound sleep because of substernal chest pressure and quivering in her chest. The patient got out of bed and took a walk hoping that her symptoms would resolve. Unfortunately, this was not the case. She also began to notice a pressure and quivering" in her arms. There was no associated shortness of breath or diaphoresis. She did complain of a mild degree of nausea, but no vomiting. The patient presented to the emergency room at approximately 3:30 a.m. and was found to be in atrial fibrillation with rapid ventricular response. The patient was placed on a Cardizem drip which was unsuccessful in controlling her ventricular response. She was eventually given intravenous metoprolol tartrate which was able to control her heart rate. Three minutes after transfer to the telemetry floor, the patient spontaneously converted to sinus rhythm. The patient has never had an episode of atrial fibrillation previously. She has noticed occasional short-lived palpitations over the last several years. The patient has never known of a cardiac event. She has never had a cardiac catheterization. She has never experienced exertional chest pain or limiting dyspnea. She further denies syncope, presyncope, PND, orthopnea, lower extremity edema, and claudication. Her medications reviewed in detail. Past medical and surgical history 1. Hypertension 2. GERD 3. Fibromyalgia syndrome 4. Osteoporosis 5. Vitamin-D deficiency 6. History of diverticulitis 7. Partial left-sided colectomy 8. Tubal ligation 9. Appendectomy 10. Tonsillectomy Social history and lives with her No tobacco Rare alcohol Family history No early coronary artery disease Review systems A 10 point review systems was undertaken and negative except for that described above. Allergies Allergy/AdvReac Type Severity Reaction Status Date / Time celecoxib Allergy Intermediate RASH Verified 01/31/20 04:18 levofloxacin Allergy Unknown HIVES Verified 01/31/20 04:18 meperidine AdvReac Mild n/v Verified 01/31/20 04:18 Home Medications Home Medications Medication Instructions Recorded Confirmed Type aspirin 81 mg chewable tablet 81 mg PO QAM 02/21/19 01/31/20 History cholecalciferol (vitamin D3) 25 1,000 units PO QAM #90 cap 05/15/19 01/31/20 History mcg (1,000 unit) capsule vitamin B complex 1 cap PO QAM 10/02/19 01/31/20 History meclizine 25 mg tablet 25 mg PO TID PRN #30 tab 10/10/19 01/31/20 Rx amitriptyline 25 mg tablet 25 mg PO DAILY #30 tab 01/26/20 01/31/20 Rx amlodipine 5 mg tablet 5 mg PO QAM #90 tab 01/26/20 01/31/20 Rx carvedilol 6.25 mg tablet 6.25 mg PO BID #60 tab 01/26/20 01/31/20 Rx omeprazole 40 mg capsule,delayed 40 mg PO QAM #30 cap 01/26/20 01/31/20 Rx release Patient History Medical History Diverticulitis (Resolved) Vertigo Surgical History H/O oral surgery H/O tubal ligation Hx of appendectomy (Resolved) Hx of cholecystectomy S/P colon resection S/P tonsillectomy Family History Mother Breast cancer Hypertension Father Colorectal cancer Hypertension Prostate cancer Denies family history of Ovarian cancer Diabetes Myocardial infarction Social History marital status: Current Living Situation: Spouse current occupational status: retired Feels Safe at Home: Yes Smoking Status: Never smoker Second Hand Exposure: No ; Hx Alcohol Use: Yes Alcohol type: wine Alcohol Intake Frequency: Rarely Hx Substance Use: No caffeine: Yes (coffee) Dental Care, Regularly: No Physical Activity Frequency: Other Physical Activity Frequency Comment: Pt states rarely Seatbelt Use: always Sunscreen Use: No Physical Exam Physical Exam: In general this is a well-developed well-nourished white female in no acute distress. HEENT exam is negative. Neck is supple with full carotid upstrokes. There are no carotid bruits. Jugular venous pressure is flat at 90. There is no thyromegaly. Cardiovascular exam reveals a regular rhythm with a normal S1 and S2. No obvious murmurs. Lungs are clear without rales, rhonchi, or wheezes. Abdomen is soft and nontender without bruits. Extremities reveal intact radial artery and posterior tibial pulses bilaterally. There is no peripheral edema. Results & Data ([facility]) Vital Signs (Past 12 Hours) Vital Signs Temp Pulse Pulse Resp BP BP Pulse Ox 01/31/20 08:05 36.6 C 71 18 141/76 H 96 01/31/20 07:00 128 H 18 117/97 96 01/31/20 06:54 194 H 17 143/110 H 97 01/31/20 06:45 153 H 24 112/69 97 01/31/20 06:30 127 H 14 119/85 97 01/31/20 06:18 145 H 134/108 H 01/31/20 06:15 148 H 13 134/108 H 96 01/31/20 05:52 135 H 13 157/98 H 97 01/31/20 05:30 135 H 16 153/107 H 97 01/31/20 05:16 144 H 11 L 160/100 H 97 01/31/20 05:00 139 H 14 107/85 96 01/31/20 04:46 146 H 17 96 01/31/20 04:45 146 H 16 158/96 H 96 01/31/20 04:40 161 H 14 96 01/31/20 04:35 131 H 20 96 01/31/20 04:30 117 H 15 131/94 96 01/31/20 04:25 134 H 15 97 01/31/20 04:20 131 H 14 97 01/31/20 04:16 117 H 16 96 01/31/20 04:15 128 H 14 144/129 H 96 01/31/20 04:10 133 H 14 96 01/31/20 04:01 109 H 14 138/85 93 01/31/20 03:55 127 H 15 122/92 95 01/31/20 03:53 154 H 12 163/99 H 97 01/31/20 03:45 131 H 14 179/104 H 97 01/31/20 03:33 151 H 13 178/124 H 97 01/31/20 03:17 36.4 C L 159 H 24 156/95 H 95 Laboratory Results CBC notes hemoglobin of 16.8, hematocrit 47.3, white count 8.65, and platelet count of 999909. Electrolytes note a sodium of 138, potassium 3.5, chloride 103, bicarb 20, BUN 13, creatinine 0.8, glucose of 118. Magnesium level is normal at 2.2. Troponin I level was undetectable at 0.015 at 3:40 a.m. TSH levels elev ated at 5.35. Diagnostic Findings EKG on presentation noted atrial fibrillation with rapid ventricular response at 149 beats per minute. There is a diffuse ST abnormality. [employer] now reveals normal sinus rhythm. Chest x-ray shows no acute disease. PG Care Time/CCT Total # of Minutes Spent Total Time Spent with Patient: Total time spent is greater than 50% in coordination of care (as documented) at patient's floor/unit and/or counseling patient: Coding Level of Care Code 32441 OBS Care - Level 3 Diagnoses Atrial fibrillation with RVR I48.91 Hypertension I10 Heart palpitations R00.2
[2020-01-31 12:18] LABS: Partial Thromboplastin Ratio 1.3; Partial Thromboplastin Time 36.7 Seconds (21.0-31.0)
--- NOTE | 2020-01-31 12:20 | XCELERA ---
[id number]
--- NOTE | 2020-01-31 13:32 | Electrocardiogram Report ---
Test Reason : Blood Pressure : / mmHG Vent. Rate : 149 BPM Atrial Rate : 166 BPM P-R Int : 000 ms QRS Dur : 088 ms QT Int : 286 ms P-R-T Axes : 000 042 060 degrees QTc Int : 450 ms Atrial fibrillation with rapid ventricular response Marked T-wave abnormality, consider inferolateral ischemia Abnormal ECG When compared with ECG of 02-OCT-2019 11:09, Significant changes have occurred Confirmed by Tin Soliz ([id number]) on 01/31/2020 1:32:16 PM Referred By: REFERRED SELF Confirmed By:Tin Soliz
--- NOTE | 2020-01-31 14:43 | Discharge Summary ---
Date of Service January 31, 2020 Admission HPI Per Admitting Provider The patient is a 74 yo female with a PMH including HTN, Palpitations, fibromyalgia, Depression and GERD. She developed the acute onset of symptoms as noted above. Work up in the ED included EKG and monitoring noting Atrial fib with RVR. She was initially started by the ED on a cardizem drip, that was maxed to 15, after a 20mg IV bolus, without improvement. She was then changed to lopressor 5mg IV q5 min x 3. Her labs then showed a K of 3.5, and was givne Klor Con 40mg PO, a KCL 10 MEQ rider, and NSS + KCl 20meq at 100ml/hr. Principal Diagnosis Atrial fibrillation with RVR Discharge Exam Constitutional WD/WN, vitals as above Eyes PERRL, conjunctivae normal, anicteric sclerae ENMT external ear and nose normal, oropharynx normal Neck trachea midline, no thyromegaly Respiratory normal respiratory effort, lungs clear to auscultation Cardiovascular RRR, no murmur, no edema Gastrointestinal (Abdomen) normal bowel sounds, soft, nontender, no hepatosplenomegaly Musculoskeletal no cyanosis or clubbing, extremities motor strength 5/5 Skin no rashes, warm and dry Neurologic patellar DTR's 2+ bilat, sensation intact and PERRL, EOMI, accommodation nl, no face palsy, no dysarthria Psychiatric A+Ox3, euthymic affect Lymphatic no cervical or axillary lymphadenopathy Discharge Data Allergies Allergy/AdvReac Type Severity Reaction Status Date / Time celecoxib Allergy Intermediate RASH Verified 01/31/20 04:18 levofloxacin Allergy Unknown HIVES Verified 01/31/20 04:18 meperidine AdvReac Mild n/v Verified 01/31/20 04:18 Consultations 01/31/20 08:05 Consult Cardiology Routine Consult Case Management - Discharge Planning Routine Hospital Course (1) Atrial fibrillation with RVR: atrial fib with RVR, new onset Increased carvedilol from 6.25 to 12.5mg po bid initially given Diltiazem drip in the ED, was not successful, then given three doses of Lopressor 5mg IV patient converted to normal sinus rhythm shortly after arrival to PCU troponin negative x 3 sets echocardiogram showed EF of 65%, no wall motion abnormalities, no valve disease she was treated with heparin drip for anticoagulation discussed with xochilt Weiss for discharge since she converted to NSR and there are no signs of cardiac ischemia will d/c home on increased dose of Coreg 12.5mg BID will start Eliquis 5mg BID for anticoagulation follow up with PCP in one week (2) Hypertension: BP stable increased dose of Coreg to 12.5mg BID (3) Fibromyalgia: fibromyalgia/depression- continue amitriptylline (4) Depression: see above (5) Acid reflux disease: omeprazole Total Time Total Time Spent Total Time Spent (In Minutes): 25 minutes Total Time Includes: Examination of the Patient, Discharge Planning, Medication Reconciliation and Communication With Other Providers (Dr. Soliz) Discharge Plan Discharge Items Patient Disposition: Home - Self-Care Reason For Visit: ATRIAL FIB WITH RVR Discharge Diagnosis: Atrial fibrillation with RVR, converted to sinus rhythm Condition on Discharge: Good Goals: treat afib with higher dose of Coreg, anticoagulate with Eliquis Activity: Resume your previous activity Non-emergency contact: Primary Care Provider Call non-emergency contact if: you have any medication questions Follow-up/Referrals: Tyrese Morrell DO [Primary Care Provider] - 02/02/20 1:30 pm (one week) Diet: Regular Addtl Attending Provider Instructions: Medications: - CARVEDILOL: increase dose to 12.5mg twice a day for rate control - ELIQUIS: new medication for thinning blood, stroke protection with atrial fibrillation, 5mg twice a day Atrial fibrillation with rapid response converted to normal sinus rhythm shortly after admission evaluated by Dr. Soliz, cardiology, he recommends increasing Coreg 12.5mg twice a day and adding anticoagulation will start on Eliquis echocardiogram showed normal heart function, normal valves can follow up with PCP in one week for this new diagnosis Pending Studies at Discharge: No Stand-Alone Forms: My Shut Down, Smoking Cessation Medications and DC Order Prescriptions: New carvedilol 12.5 mg Tablet 12.5 mg PO BID 30 Days Qty: 60 RF: 3 Eliquis 5 mg tablet 5 mg PO BID 30 Days Qty: 60 RF: 3 Continued aspirin 81 mg tablet,chewable 81 mg PO QAM RF: 0 meclizine 25 mg tablet 25 mg PO TID PRN (Reason: motion sickness) Qty: 30 RF: 0 cholecalciferol (vitamin D3) 1,000 unit capsule 1,000 units PO QAM Qty: 90 RF: 0 amlodipine [Norvasc] 5 mg tablet 5 mg PO QAM Qty: 90 RF: 1 omeprazole 40 mg capsule,delayed release(DR/EC) 40 mg PO QAM Qty: 30 RF: 5 amitriptyline 25 mg tablet 25 mg PO DAILY Qty: 30 RF: 2 vitamin B complex Capsule 1 cap PO QAM RF: 0 Discontinued carvedilol 6.25 mg tablet 6.25 mg PO BID Qty: 60 RF: 2 Discharge Orders: Discharge Order (Routine); Ordered 01/31/20 Ordered By: Kareem Rich Admission Data Admit Date/Time: 01/31/20 06:24 Attending Provider: Kareem Rich Admit Provider: [place] Primary Care Provider: Tyrese Morrell Other Providers: Everton Mayers Other Interventions: Discharge Summary Assessment (RN) Last Done: 01/31/20 15:16 DC Date/Time DO NOT enter until pt leaves facility: 01/31/20 15:40 Coding Level of Care Code D/C Day Management <30 mins Diagnoses Atrial fibrillation with RVR I48.91 Hypertension I10 Fibromyalgia M79.7 Depression F32.9 Acid reflux disease K21.9
== END 2020-01-31 15:40 | disposition home or self-care (01) | DRG 310 ==
LOC: ED 03:12 → INTOOBSV 06:24 → SUATTDRO 06:24 → 2S 06:24

== ENCOUNTER 2020-02-21 04:46 | Observation (INO) ==
[2020-02-21] MEDS ORDERED: METOPROLOL TARTRATE 1 MG/ML VIAL IV STA ×2 (05:03→05:31)
[2020-02-21 05:21] LABS: Basophils # (auto) 0.03 K/uL (0-0.2); Basophils % (auto) 0.4 %; Eosinophils % (auto) 2.4 %; Hematocrit (blood only) 44.7 % (37-47); Hemoglobin 15.7 g/dL (12.0-16.0); Immature Granulocytes # (auto) 0.02 K/uL (0.00-0.02); Immature Granulocytes % (auto) 0.2 %; Lymphocytes # (auto) 1.33 K/uL (1.2-3.4); Lymphocytes % (auto) 16.1 %; Mean Corpuscular Hgb Conc 35.1 g/dL (32-36); Mean Corpuscular Volume 91.2 fL (80-100); Mean Platelet Volume 11.9 fL (7.4-10.4); Monocytes # (auto) 0.87 K/uL (0.11-0.59); Monocytes % (auto) 10.5 %; Neutrophils # (auto) 5.83 K/uL (1.4-6.5); Neutrophils % (auto) 70.4 %; Platelet Count 242 K/uL (130-400); RDW Coefficient of Variation 12.2 % (11.5-14.5); RDW Standard Deviation 40.8 fL (36.4-46.3); White Blood Count 8.28 K/uL (4.8-10.8)
[2020-02-21 05:38] LABS: Albumin Level 3.7 gm/dl (3.4-5.0); BUN Creatinine Ratio 11.3 (10-20); Calcium 9.4 mg/dl (8.5-10.1); Creatinine Clr Calc Pharmacy 76.3 ml/min; Est GFR (African American) 98.9; Est GFR (Non-African American) 85.4; Magnesium 2.2 mg/dl (1.8-2.4); Potassium 3.5 mmol/L (3.5-5.1)
[2020-02-21 05:49] LABS: Albumin Globulin Ratio 0.8 (0.9-2); Bilirubin,Total 0.8 mg/dl (0.2-1); Globulin 4.4 gm/dl (2.5-4.0); Phosphorus 2.9 mg/dl (2.5-4.9); Thyroid Stimulating Hormone 3.58 uIu/ml (0.300-4.500); Total Protein 8.1 gm/dl (6.4-8.2)
[2020-02-21] MEDS ORDERED: dilTIAZem HCl 5 MG/ML 5 ML VIAL IV ONE (05:55)
[2020-02-21] MEDS ORDERED: dilTIAZem HCl 5 MG/ML 5 ML VIAL IV STA ×2 (05:56→06:42)
--- NOTE | 2020-02-21 06:12 | Emergency Department Note ---
History of Present Illness General Chief complaint: Tachycardia Stated complaint: RAPID HEARTBEAT Time Seen by Provider: 02/21/20 04:59 Source: patient and RN notes reviewed Mode of arrival: ambulatory Limitations: no limitations History of Present Illness Provider complaint: Racing heart Maximum Pain Intensity: 3 This patient is a 75-year-old female who presents emergency department with c omplaints of a racing heart. Patient states she was hospitalized a little over 2 weeks ago for new onset rapid atrial fibrillation. Patient was placed on apixaban and carvedilol. Yesterday she started olmesartan for blood pressure management. Patient states she has been feeling fatigued recently but denies fevers, chills, chest pain or significant shortness of breath. She states she does have a cool sensation across the chest when the heart is racing. She denies any nausea, vomiting or diarrhea recently. Home Medications Home Medications Medication Instructions Recorded Confirmed Type cholecalciferol (vitamin D3) 25 1,000 units PO QAM #90 cap 05/15/19 02/21/20 History mcg (1,000 unit) capsule vitamin B complex 1 cap PO QAM 10/02/19 02/21/20 History meclizine 25 mg tablet 25 mg PO TID PRN #30 tab 10/10/19 02/21/20 Rx amlodipine 5 mg tablet 5 mg PO QAM #90 tab 01/26/20 02/21/20 Rx omeprazole 40 mg capsule,delayed 40 mg PO QAM #30 cap 01/26/20 02/21/20 Rx release apixaban 5 mg tablet 5 mg PO BID 30 Days #60 tab 02/02/20 02/21/20 Rx carvedilol 12.5 mg tablet 12.5 mg PO BID 30 Days #60 tab 02/02/20 02/21/20 Rx escitalopram oxalate 5 mg tablet 5 mg PO DAILY #30 tab 02/02/20 02/21/20 Rx multivitamin 1 tab PO DAILY 02/02/20 02/21/20 History olmesartan 5 mg tablet 5 mg PO DAILY #30 tab 02/16/20 02/21/20 Rx amitriptyline 25 mg PO DAILY 02/21/20 02/21/20 History Allergies Allergy/AdvReac Type Severity Reaction Status Date / Time celecoxib Allergy Intermediate RASH Verified 02/21/20 05:16 levofloxacin Allergy Unknown HIVES Verified 02/21/20 05:16 meperidine AdvReac Mild n/v Verified 02/21/20 05:16 Past Med/Surg History Family History Mother Breast cancer Hypertension Father Colorectal cancer Hypertension Prostate cancer Denies family history of Ovarian cancer Diabetes Myocardial infarction Social History Preferred Language: Azerbaijani Communication Ability: Effective Dietary Service Aide Required: No Beliefs That Will Affect Care: None marital status: Current Living Situation: Spouse current occupational status: retired Feels Safe at Home: Yes Smoking Status: Never smoker Second Hand Exposure: No ; Hx Alcohol Use: No Hx Substance Use: No caffeine: Yes (coffee) Dental Care, Regularly: No Physical Activity Frequency: Other Physical Activity Frequency Comment: Pt states rarely Seatbelt Use: always Sunscreen Use: No Review of Systems See HPI for pertinent positives & negatives. and A total of 10 systems reviewed and were otherwise negative Physical Exam Vital Signs Vital Signs - 24 hr 02/21/20 04:48 02/21/20 05:12 02/21/20 05:36 Temperature 36.4 C L Temperature Source Oral Pulse Rate 143 H 138 H 136 H Pulse Rate from SpO2 Sensor Respiratory Rate 18 Blood Pressure 132/76 109/79 111/70 Blood Pressure Mean 94 Pulse Oximetry 95 Oxygen Delivery Method Room Air Sepsis Recent Fever Within 48 Hours No Sepsis New/Unexplained Change in Mental Status No Sepsis Action Taken by Nursing No Action Required 02/21/20 05:46 02/21/20 05:57 02/21/20 06:00 Temperature Temperature Source Pulse Rate 131 H 138 H 81 Pulse Rate from SpO2 Sensor 131 H 140 H Respiratory Rate 12 17 16 Blood Pressure 99/76 L 110/82 108/62 Blood Pressure Mean 82 102 81 Pulse Oximetry 95 95 95 Oxygen Delivery Method Room Air Room Air Room Air Sepsis Recent Fever Within 48 Hours Sepsis New/Unexplained Change in Mental Status Sepsis Action Taken by Nursing 02/21/20 06:15 02/21/20 06:30 Temperature Temperature Source Pulse Rate 103 H 134 H Pulse Rate from SpO2 Sensor 120 H 131 H Respiratory Rate 13 24 Blood Pressure 113/94 132/78 Blood Pressure Mean 102 96 Pulse Oximetry 95 95 Oxygen Delivery Method Room Air Room Air Sepsis Recent Fever Within 48 Hours Sepsis New/Unexplained Change in Mental Status Sepsis Action Taken by Nursing Vital signs reviewed. General: Well-appearing 75-year-old female, in no significant distress. HEENT: No scleral icterus, PERRLA, neck supple. Atraumatic. Cardiovascular: Tachycardic and irregular Pulmonary: Clear to auscultation bilaterally, normal work of breathing. Abdomen: Soft, nontender, nondistended, positive bowel sounds. Musculoskeletal: Atraumatic, no peripheral edema. Neurologic: Patient awake alert and oriented x 3 Skin: Warm, dry, no rash Course Administered Medications Discontinued Medications Diltiazem HCl (Cardizem) Confirm Administered Dose 25 mg IV .[employer] ONE Stop: 02/21/20 05:56 Last Admin: 02/21/20 05:58 Dose: Not Given Documented by: [id number] Diltiazem HCl (Cardizem) 10 mg IV NOW STA Stop: 02/21/20 05:57 Last Admin: 02/21/20 05:58 Dose: 10 mg Documented by: [id number] Cosigned by: [id number] Metoprolol Tartrate (Lopressor) 5 mg IV NOW STA Stop: 02/21/20 05:04 Last Admin: 02/21/20 05:12 Dose: 5 mg Documented by: [id number] Metoprolol Tartrate (Lopressor) 5 mg IV NOW STA Stop: 02/21/20 05:32 Last Admin: 02/21/20 05:36 Dose: 5 mg Documented by: [id number] Critical Care Time Critical Care Time: Yes (45) I have personally spent greater than 45 minutes of critical care time in the direct management of this patient. This includes bedside care, interpretation of diagnostic studies, and testing, discussion with consultants, patient, and family members, and other required patient management activities. This 45 minutes is in excess of all separately billable procedures. Medical Decision Making Differential Diagnosis The differential diagnosis of this patient's presentation includes atrial fibrillation, electrolyte abnormality, metabolic abnormality, ACS, pneumonia, sepsis, CHF Medical Records Attestation: I reviewed the patient's medical records. Home Medications Current Medication List: was personally reviewed by me Laboratory Data Attestation: I reviewed the patient's lab results. Result diagrams: 02/21/20 05:05 02/21/20 05:05 Lab Results 02/21/20 02/21/20 02/21/20 Range/Units 05:05 05:05 05:05 WBC 8.28 (4.8-10.8) K/uL RBC 4.90 (4.2-5.4) M/uL Hgb 15.7 (12.0-16.0) g/dL Hct 44.7 (37-47) % MCV 91.2 (80-100) fL MCH 32.0 (25-34) pg MCHC 35.1 (32-36) g/dL RDW Std Deviation 40.8 (36.4-46.3) fL RDW Coeff of Manju 12.2 (11.5-14.5) % Plt Count 242 (130-400) K/uL MPV 11.9 H (7.4-10.4) fL Immature Gran % (Auto) 0.2 % Neut % (Auto) 70.4 % Lymph % (Auto) 16.1 % [place] % (Auto) 10.5 % Eos % (Auto) 2.4 % Baso % (Auto) 0.4 % Neut # (Auto) 5.83 (1.4-6.5) K/uL Lymph # (Auto) 1.33 (1.2-3.4) K/uL [place] # (Auto) 0.87 H (0.11-0.59) K/uL Eos # (Auto) 0.20 (0-0.5) K/uL Baso # (Auto) 0.03 (0-0.2) K/uL Immature Gran # (Auto) 0.02 (0.00-0.02) K/uL Sodium 140 (136-145) mmol/L Potassium 3.5 (3.5-5.1) mmol/L Chloride 105 (98-107) mmol/L Carbon Dioxide 29 (21-32) mmol/L Anion Gap 6.0 (3-11) BUN 8 (7-18) mg/dl Creatinine 0.70 (0.6-1.2) mg/dl Est Cr Clr Drug Dosing 76.3 ml/min Est GFR ( Amer) 98.9 Est GFR (Non-Af Amer) 85.4 BUN/Creatinine Ratio 11.3 (10-20) Glucose 116 H (70-99) mg/dl Calcium 9.4 (8.5-10.1) mg/dl Phosphorus 2.9 (2.5-4.9) mg/dl Magnesium 2.2 (1.8-2.4) mg/dl Total Bilirubin 0.8 (0.2-1) mg/dl AST 15 (15-37) U/L ALT 19 (12-78) U/L Alkaline Phosphatase 77 (45-117) U/L Troponin I < 0.015 (0-0.045) ng/ml Total Protein 8.1 (6.4-8.2) gm/dl Albumin 3.7 (3.4-5.0) gm/dl Globulin 4.4 H (2.5-4.0) gm/dl Albumin/Globulin Ratio 0.8 L (0.9-2) TSH 3.580 (0.300-4.500) uIu/ml Imaging Data Attestation: I personally reviewed and interpreted this imaging study as follows: My Impression: Chest x-ray to my interpretation reveals a left basilar atele ctasis, no evidence of infiltrate or failure ECG Data Attestation: I personally reviewed and interpreted this ECG as follows: Indication: + tachycardia Rate (beats per minute): 142 Rhythm: + atrial fibrillation ECG Intervals/blocks: + Normal QT-c ECG ST segments: + Nonspecific ST abnormalities ECG Findings: no PACs and no PVCs Blood Pressure Blood Pressure Findings: Normal blood pressure Blood Pressure Disposition: further management by hospitalist [facility] Narrative This patient was evaluated and appeared to be in no significant distress. An order for cardiac monitoring was placed and the patient was found to be in a rapid atrial fibrillation at 134 bpm. Patient was medicated with metoprolol 5 mg IV x2. Patient continued with atrial fib with RVR. She was then given 10 mg of IV Cardizem. Patient's laboratory work is fairly reassuring with a negative troponin and normal electrolytes. Patient did improve after the first dose of IV Cardizem although returned to a rapid rate shortly thereafter. A second dose of IV Cardizem was ordered. Chest x-ray reveals no evidence of focal lung consolidation or failure. Case was referred to the hospitalist service for admission and further management. Patient is aware of the plan and agrees. Impression & Plan Atrial fibrillation with RVR Discharge Plan Visit Data Chief Complaint: Tachycardia Stated Complaint: RAPID HEARTBEAT ED Provider: Jessica Ivey Discharge Problem: Atrial fibrillation with RVR Forms Stand Alone Forms: My [facility] Prescriptions Prescriptions: No Action olmesartan 5 mg tablet 5 mg PO DAILY Qty: 30 RF: 2 meclizine 25 mg tablet 25 mg PO TID PRN (Reason: motion sickness) Qty: 30 RF: 0 cholecalciferol (vitamin D3) 1,000 unit capsule 1,000 units PO QAM Qty: 90 RF: 0 amlodipine [Norvasc] 5 mg tablet 5 mg PO QAM Qty: 90 RF: 1 omeprazole 40 mg capsule,delayed release(DR/EC) 40 mg PO QAM Qty: 30 RF: 5 multivitamin [Daily Multi-Vitamin] Tablet 1 tab PO DAILY RF: 0 Eliquis 5 mg tablet 5 mg PO BID 30 Days Qty: 60 RF: 3 carvedilol 12.5 mg tablet 12.5 mg PO BID 30 Days Qty: 60 RF: 3 escitalopram oxalate [Lexapro] 5 mg tablet 5 mg PO DAILY Qty: 30 RF: 2 vitamin B complex Capsule 1 cap PO QAM RF: 0 amitriptyline 25 mg tablet 25 mg PO DAILY RF: 0
[2020-02-21] MEDS ORDERED: METOPROLOL TARTRATE 25 MG TAB PO ONE (07:19)
--- NOTE | 2020-02-21 07:23 | Hospitalist Consultation ---
Date of Consultation February 21, 2020 Assessment & Plan (1) Atrial fibrillation with RVR: Patient returns with atrial fibrillation rapid ventricular rate she has no chest pain associated with it. She can sense her palpitations. She will be transitioned from carvedilol to metoprolol he is maintained anticoagulation with Eliquis. She did an echocardiogram less than 1 month ago showing a preserved ejection fraction. Cardiology consultation will be involved to help manage her long-term (2) Fibromyalgia: Patient on an SSRI antidepressant for her fibromyalgia (3) Depression: Patient has depression for which she takes Lexapro this will be continued. She also takes amitriptyline unclear whether morning or night will further look into this (4) Acid reflux disease: Patient typically taking omeprazole proton pump inhibitor will be continued per formulary (5) DVT prophylaxis: Eliquis is used for DVT prevention History of Present Illness History of Present Illness This patient is a 75-year-old female who presents emergency department with complaints of a racing heart. Patient states she was hospitalized a little over 2 weeks ago for new onset rapid atrial fibrillation. Patient was placed on apixaban and carvedilol. Yesterday she started olmesartan for blood pressure management. Patient states she has been feeling fatigued recently but denies fevers, chills, chest pain or significant shortness of breath. She states she does have a cool sensation across the chest when the heart is racing. She denies any nausea, vomiting or diarrhea recently. Patient denies medical indiscretion. She is complains of what sounds to be a tension headache and recently has been starting to exercise which is made her muscles sore Allergies Allergy/AdvReac Type Severity Reaction Status Date / Time celecoxib Allergy Intermediate RASH Verified 02/21/20 05:16 levofloxacin Allergy Unknown HIVES Verified 02/21/20 05:16 meperidine AdvReac Mild n/v Verified 02/21/20 05:16 Home Medications Home Medications Medication Instructions Recorded Confirmed Type cholecalciferol (vitamin D3) 25 1,000 units PO QAM #90 cap 05/15/19 02/21/20 History mcg (1,000 unit) capsule vitamin B complex 1 cap PO QAM 10/02/19 02/21/20 History meclizine 25 mg tablet 25 mg PO TID PRN #30 tab 10/10/19 02/21/20 Rx amlodipine 5 mg tablet 5 mg PO QAM #90 tab 01/26/20 02/21/20 Rx omeprazole 40 mg capsule,delayed 40 mg PO QAM #30 cap 01/26/20 02/21/20 Rx release apixaban 5 mg tablet 5 mg PO BID 30 Days #60 tab 02/02/20 02/21/20 Rx carvedilol 12.5 mg tablet 12.5 mg PO BID 30 Days #60 tab 02/02/20 02/21/20 Rx escitalopram oxalate 5 mg tablet 5 mg PO DAILY #30 tab 02/02/20 02/21/20 Rx multivitamin 1 tab PO DAILY 02/02/20 02/21/20 History olmesartan 5 mg tablet 5 mg PO DAILY #30 tab 02/16/20 02/21/20 Rx amitriptyline 25 mg PO DAILY 02/21/20 02/21/20 History Patient History Family History Mother Breast cancer Hypertension Father Colorectal cancer Hypertension Prostate cancer Denies family history of Ovarian cancer Diabetes Myocardial infarction Social History Preferred Language: Nepalese Communication Ability: Effective Manager Mechanical Required: No Beliefs That Will Affect Care: None marital status: Current Living Situation: Spouse current occupational status: retired Feels Safe at Home: Yes Smoking Status: Never smoker Second Hand Exposure: No ; Hx Alcohol Use: No Hx Substance Use: No caffeine: Yes (coffee) Dental Care, Regularly: No Physical Activity Frequency: Other Physical Activity Frequency Comment: Pt states rarely Seatbelt Use: always Sunscreen Use: No Review of Systems Review of Systems: Mild distress and fatigue Posterior anterior headache worse with movement of her neck, blurry or double vision no speech or swallowing issues no chest pain, pressure she does have sensation of palpitations no shortness of breath, cough or wheezes no abdominal pain, nausea or vomiting, diarrhea or constipation no dysuria, hematuria or frequency no focal joint pain or swelling no back pain, CVA tenderness or radicular pain no bruising, bleeding or rashes no focal signs of weakness or numbness or altered sensation no complaints or anxiety or depression. Physical Exam Physical Exam: The patient appeared well nourished and normally developed. Vital signs as documented. Head exam is normocephalic atraumatic no scleral icterus Neck is without JVD, thyromegaly, or carotid bruits reproducible posterior neck muscular pain. Lungs are clear to auscultation, no focal loss of breath sounds Cardiac exam, irregularly irregular with tachycardia. No murmurs, rubs or gallops. Abdominal exam reveals normal bowel sounds, soft non tender, no masses Extremities are nonedematous and both pedal pulses are normal. Neurologic exam is alert and oriented, no focal loss of strength or sensation Skin is without bruises or rashes Psychologically is without concerns for anxiety or depression Results & Data Results & Data ([facility]) Vital Signs (Past 12 Hours) Vital Signs Temp Pulse Resp BP Pulse Ox 02/21/20 06:30 134 H 24 132/78 95 02/21/20 06:15 103 H 13 113/94 95 02/21/20 06:00 81 16 108/62 95 02/21/20 05:57 138 H 17 110/82 95 02/21/20 05:46 131 H 12 99/76 L 95 02/21/20 05:36 136 H 111/70 02/21/20 05:12 138 H 109/79 02/21/20 04:48 97.5 F L 143 H 18 132/76 95 PG Care Time/CCT Total # of Minutes Spent Total Time Spent with Patient: Total time spent is greater than 50% in coordination of care (as documented) at patient's floor/unit and/or counseling patient: Coding Diagnoses Atrial fibrillation with RVR I48.91 Fibromyalgia M79.7 Depression F32.9 Acid reflux disease K21.9 DVT prophylaxis Z29.9
--- NOTE | 2020-02-21 07:28 | XRay Report ---
SINGLE VIEW CHEST CLINICAL HISTORY: Tachycardia. FINDINGS: An AP, portable, upright chest radiograph is compared to study dated 01/31/2020. The heart i s top normal for projection noting atherosclerotic calcification of the thoracic aorta. The pulmonary vasculature is noncongested. Chronic interstitial thickening is similar to previous. There is bibasi lar scarring/atelectasis. No airspace consolidation or large pleural effusion is identified. No pneum othorax is seen. The skeletal structures are osteopenic. The bony thorax is grossly intact. IMPRESSION: No acute cardiopulmonary abnormality. ACT 112: Negative or not required by law. Electronically signed by: Ronn Chris M.D. 02/21/2020 7:26 AM
--- NOTE | 2020-02-21 07:50 | History & Physical Report ---
Date of Service February 21, 2020 Assessment & Plan (1) Atrial fibrillation with RVR: Patient returns with atrial fibrillation rapid ventricular rate she has no chest pain associated with it. She can sense her palpitations. She will be transitioned from carvedilol to metoprolol he is maintained anticoagulation with Eliquis. She did an echocardiogram less than 1 month ago showing a preserved ejection fraction. Cardiology consultation will be involved to help manage her long-term (2) Fibromyalgia: Patient on an SSRI antidepressant for her fibromyalgia (3) Depression: Patient has depression for which she takes Lexapro this will be continued. She also takes amitriptyline unclear whether morning or night will further look into this (4) Acid reflux disease: Patient typically taking omeprazole proton pump inhibitor will be continued per formulary (5) DVT prophylaxis: Eliquis is used for DVT prevention History of Present Illness Primary Care Provider: Tyrese Morrell DO this patient is a 75-year-old female who presents emergency department with complaints of a racing heart. Patient states she was hospitalized a little over 2 weeks ago for new onset rapid atrial fibrillation. Patient was placed on a pixaban and carvedilol. Yesterday she started olmesartan for blood pressure management. Patient states she has been feeling fatigued recently but denies fevers, chills, chest pain or significant shortness of breath. She states she does have a cool sensation across the chest when the heart is racing. She denies any nausea, vomiting or diarrhea recently. Patient denies medical indiscretion. She is complains of what sounds to be a tension headache and recently has been starting to exercise which is made her muscles sore Allergies Allergy/AdvReac Type Severity Reaction Status Date / Time celecoxib Allergy Intermediate RASH Verified 02/21/20 05:16 levofloxacin Allergy Unknown HIVES Verified 02/21/20 05:16 meperidine AdvReac Mild n/v Verified 02/21/20 05:16 Home Medications Home Medications Medication Instructions Recorded Confirmed Type cholecalciferol (vitamin D3) 25 1,000 units PO QAM #90 cap 05/15/19 02/21/20 History mcg (1,000 unit) capsule vitamin B complex 1 cap PO QAM 10/02/19 02/21/20 History meclizine 25 mg tablet 25 mg PO TID PRN #30 tab 10/10/19 02/21/20 Rx amlodipine 5 mg tablet 5 mg PO QAM #90 tab 01/26/20 02/21/20 Rx omeprazole 40 mg capsule,delayed 40 mg PO QAM #30 cap 01/26/20 02/21/20 Rx release apixaban 5 mg tablet 5 mg PO BID 30 Days #60 tab 02/02/20 02/21/20 Rx carvedilol 12.5 mg tablet 12.5 mg PO BID 30 Days #60 tab 02/02/20 02/21/20 Rx escitalopram oxalate 5 mg tablet 5 mg PO DAILY #30 tab 02/02/20 02/21/20 Rx multivitamin 1 tab PO DAILY 02/02/20 02/21/20 History olmesartan 5 mg tablet 5 mg PO DAILY #30 tab 02/16/20 02/21/20 Rx amitriptyline 25 mg PO DAILY 02/21/20 02/21/20 History Past Med/Surg History Family History Mother Breast cancer Hypertension Father Colorectal cancer Hypertension Prostate cancer Denies family history of Ovarian cancer Diabetes Myocardial infarction Social History Preferred Language: Estonian Communication Ability: Effective Publishing Editor Required: No Beliefs That Will Affect Care: None marital status: Current Living Situation: Spouse current occupational status: retired Feels Safe at Home: Yes Smoking Status: Never smoker Second Hand Exposure: No ; Hx Alcohol Use: No Hx Substance Use: No caffeine: Yes (coffee) Dental Care, Regularly: No Physical Activity Frequency: Other Physical Activity Frequency Comment: Pt states rarely Seatbelt Use: always Sunscreen Use: No Review of Systems Review of Systems: Mild distress and fatigue Posterior anterior headache worse with movement of her neck, blurry or double vision no speech or swallowing issues no chest pain, pressure she does have sensation of palpitations no shortness of breath, cough or wheezes no abdominal pain, nausea or vomiting, diarrhea or constipation no dysuria, hematuria or frequency no focal joint pain or swelling no back pain, CVA tenderness or radicular pain no bruising, bleeding or rashes no focal signs of weakness or numbness or altered sensation no complaints or anxiety or depression. Physical Exam Physical Exam: The patient appeared well nourished and normally developed. Vital signs as documented. Head exam is normocephalic atraumatic no scleral icterus Neck is without JVD, thyromegaly, or carotid bruits reproducible posterior neck muscular pain. Lungs are clear to auscultation, no focal loss of breath sounds Cardiac exam, irregularly irregular with tachycardia. No murmurs, rubs or gallops. Abdominal exam reveals normal bowel sounds, soft non tender, no masses Extremities are nonedematous and both pedal pulses are normal. Neurologic exam is alert and oriented, no focal loss of strength or sensation Skin is without bruises or rashes Psychologically is without concerns for anxiety or depression Results & Data Results & Data ([facility]) Vital Signs (Past 12 Hours) Vital Signs Temp Pulse Resp BP Pulse Ox 02/21/20 07:31 111 H 17 110/69 98 02/21/20 07:15 91 H 14 95/76 L 95 02/21/20 07:01 87 12 101/73 94 02/21/20 06:45 103 H 12 121/70 95 02/21/20 06:30 134 H 24 132/78 95 02/21/20 06:15 103 H 13 113/94 95 02/21/20 06:00 81 16 108/62 95 02/21/20 05:57 138 H 17 110/82 95 02/21/20 05:46 131 H 12 99/76 L 95 02/21/20 05:36 136 H 111/70 02/21/20 05:12 138 H 109/79 02/21/20 04:48 97.5 F L 143 H 18 132/76 95 chest x-ray is unremarkable no evidence of heart failure EKG shows atrial fibrillation rapid ventricular response Labs show normal TSH magnesium and potassium 3.5 which is slightly low which will be augmented by 1 dose of oral potassium Code Status & VTE Plan VTE Prophylaxis Plan VTE Prophylaxis will be ordered: Yes PG Care Time/CCT Total # of Minutes Spent Total Time Spent with Patient: Total time spent is greater than 50% in coordination of care (as documented) at patient's floor/unit and/or counseling patient: Coding Level of Care Code 73216 Initial Inpt Care Lvl 3 Diagnoses Atrial fibrillation with RVR I48.91 Fibromyalgia M79.7 Depression F32.9 Acid reflux disease K21.9 DVT prophylaxis Z29.9
[2020-02-21] MEDS ORDERED: POTASSIUM CHLORIDE 20 MEQ TABCR PO STA (08:33)
[2020-02-21] MEDS ORDERED: METOPROLOL TARTRATE 1 MG/ML VIAL IV PRN (08:33)
[2020-02-21] MEDS ORDERED: ONDANSETRON INJ 2 MG/ML 2 ML VIAL IV PRN (08:33)
[2020-02-21] MEDS ORDERED: ALUMINUM/MAGNESIUM SUSP 30 ML UDC PO PRN (08:33)
[2020-02-21] MEDS ORDERED: ACETAMINOPHEN 325 MG TAB PO PRN (08:33)
[2020-02-21] MEDS ORDERED: ASPIRIN 81 MG ECTAB PO SCH (09:00)
[2020-02-21] MEDS ORDERED: AMITRIPTYLINE HCL 25 MG TAB PO SCH (09:00)
[2020-02-21] MEDS ORDERED: ESCITALOPRAM OXALATE 10 MG TAB PO SCH (09:00)
[2020-02-21] MEDS: APIXABAN 5 MG TABLET PO SCH ×2 (11:29→18:26)
--- NOTE | 2020-02-21 18:11 | Cardiology Consultation ---
Date of Consultation February 21, 2020 Assessment & Plan (1) Atrial fibrillation with RVR: It is unfortunate that she had a recurrence of atrial fibrillation in such a short time frame. It appears that her rate control regimen was inadequate. At this point I think intensifying her rate control regimen would be reasonable. We can easily substitute diltiazem for amlodipine. She has been switched to metoprolol which could also be increased in the outpatient setting. She will continue on her anticoagulation indefinitely. I do not believe there is an urgent need for a change to rhythm control strategy. She has returned to sinus rhythm I think is reasonable for her to be discharged on 240 milligrams of diltiazem daily this would require discontinuation of her amlodipine. (2) Hypertension: She seems to have reasonable control on current medical regimen. (3) Mitral regurgitation: Mild on her last echocardiogram. This can be followed over time (4) Left ventricular hypertrophy: Likely related to hypertension. Certainly a contributor to atrial fibrillation. She would does benefit from being on beta-blockade and having good blood pressure control. History of Present Illness Reason for Consultation: Atrial fibrillation Requesting Physician: Guillermo Attending Physician: Hilario Li MD History of Present Illness The patient is a 75-year-old woman who was admitted 3 weeks ago with an episode of atrial fibrillation and associated high ventricular rates. The patient was started on anticoagulation and underwent an increase in her beta blockade at the time of discharge. In the interim she reports feeling quite poorly. This primarily involved a sense of fatigue and tiredness. She states that she has only been able to function in approximately 80 percent. She gets quite tired even making meals and performing light housework. She has some generalized aches and pains that she attributes to fibromyalgia. She is also concerned that she has some side effects from amlodipine. Early this morning she was woken with symptoms of palpitations. She had a vague sense of chest pressure and some tingling in both arms. She took her blood pressure which was normal but noted an elevated heart rate. She proceeded to the emergency room where she was discovered to have atrial fibrillation with high ventricular rates. She did not report associated dizziness or lightheadedness. She did have some mild dyspnea with the episode that she thought may be related to hyperventilation. Approximately 9 a.m. this morning she converted back to sinus rhythm and feels much better. She has been ambulatory around her room without new symptoms. She currently denies any sense of palpitations. She has a residual headache. She attributes this to atrial fibrillation but the headache has actually been present for 4 days. Allergies Allergy/AdvReac Type Severity Reaction Status Date / Time celecoxib Allergy Intermediate RASH Verified 02/21/20 05:16 levofloxacin Allergy Unknown HIVES Verified 02/21/20 05:16 meperidine AdvReac Mild n/v Verified 02/21/20 05:16 Home Medications Home Medications Medication Instructions Recorded Confirmed Type cholecalciferol (vitamin D3) 25 1,000 units PO QAM #90 cap 05/15/19 02/21/20 History mcg (1,000 unit) capsule vitamin B complex 1 cap PO QAM 10/02/19 02/21/20 History meclizine 25 mg tablet 25 mg PO TID PRN #30 tab 10/10/19 02/21/20 Rx amlodipine 5 mg tablet 5 mg PO QAM #90 tab 01/26/20 02/21/20 Rx omeprazole 40 mg capsule,delayed 40 mg PO QAM #30 cap 01/26/20 02/21/20 Rx release apixaban 5 mg tablet 5 mg PO BID 30 Days #60 tab 02/02/20 02/21/20 Rx carvedilol 12.5 mg tablet 12.5 mg PO BID 30 Days #60 tab 02/02/20 02/21/20 Rx escitalopram oxalate 5 mg tablet 5 mg PO DAILY #30 tab 02/02/20 02/21/20 Rx multivitamin 1 tab PO DAILY 02/02/20 02/21/20 History olmesartan 5 mg tablet 5 mg PO DAILY #30 tab 02/16/20 02/21/20 Rx amitriptyline 25 mg PO DAILY 02/21/20 02/21/20 History Patient History Medical History Atrial fibrillation with RVR (Acute) Diverticulitis (Resolved) Fibromyalgia (Acute) Hypertension (Acute) Vertigo Vitamin D deficiency Surgical History H/O oral surgery H/O tubal ligation Hx of appendectomy (Resolved) Hx of cholecystectomy S/P colon resection S/P tonsillectomy Family History Mother Breast cancer Hypertension Father Colorectal cancer Hypertension Prostate cancer Denies family history of Ovarian cancer Diabetes Myocardial infarction Social History Preferred Language: Maori Communication Ability: Effective Dealer Development Manager Required: No Beliefs That Will Affect Care: None marital status: Current Living Situation: Spouse current occupational status: retired Feels Safe at Home: Yes Smoking Status: Never smoker Second Hand Exposure: No ; Hx Alcohol Use: No Hx Substance Use: No caffeine: Yes (coffee) Dental Care, Regularly: No Physical Activity Frequency: Other Physical Activity Frequency Comment: Pt states rarely Seatbelt Use: always Sunscreen Use: No Review of Systems Review of Systems: All systems reviewed & are unremarkable except as noted in HPI & below Generalized fatigue and weakness. No lower extremity edema. Physical Exam Physical Exam: She is alert and oriented x3. Mood affect appear normal. She answered all questions appropriately. HEENT: Sclerae are anicteric. Pupils are equal and reactive to light and accommodation. Extraocular movements were intact. Neuro: Cranial nerves intact Neck: Examination of the submandibular region did not reveal any significant lymphadenopathy. Carotids are palpable bilaterally and free of bruits on auscultation. There was no evidence of jugular venous distention. The thyroid was not enlarged. Lungs: Lungs are clear to auscultation bilaterally. There are no rales wheezes or rhonchi. She has normal respiratory effort without use of accessory muscles. There is normal pulmonary excursion. Cardiac: The rhythm was regular. S1 and S2 were normal. There are no murmurs on examination. The PMI was not markedly displaced on palpation. Abdomen: The abdomen was soft and nontender. Extremities: Patient has bilateral radial pulses that are equal in intensity. There is no evidence cyanosis or clubbing. There was no evidence of significant peripheral edema bilaterally. Skin: There are no rashes noted on examination today. Results & Data ([facility]) Vital Signs (Past 12 Hours) Vital Signs Temp Pulse Pulse Resp BP BP Pulse Ox 02/21/20 15:40 36.5 C 88 16 130/64 94 02/21/20 15:39 62 02/21/20 11:45 36.5 C 84 18 125/65 96 02/21/20 09:28 138 H 123/72 02/21/20 08:05 131 H 02/21/20 08:00 36.5 C 133 H 18 119/81 96 02/21/20 07:31 111 H 17 110/69 98 02/21/20 07:15 91 H 14 95/76 L 95 02/21/20 07:01 87 12 101/73 94 02/21/20 06:45 103 H 12 121/70 95 02/21/20 06:30 134 H 24 132/78 95 02/21/20 06:15 103 H 13 113/94 95 Laboratory Results Abnormal Lab Results 02/21/20 02/21/20 02/21/20 05:05 05:05 05:05 WBC 8.28 RBC 4.90 Hgb 15.7 Hct 44.7 MCV 91.2 MCH 32.0 MCHC 35.1 RDW Std Deviation 40.8 RDW Coeff of Manju 12.2 Plt Count 242 MPV 11.9 H Immature Gran % (Auto) 0.2 Neut % (Auto) 70.4 Lymph % (Auto) 16.1 Geary % (Auto) 10.5 Eos % (Auto) 2.4 Baso % (Auto) 0.4 Neut # (Auto) 5.83 Lymph # (Auto) 1.33 Geary # (Auto) 0.87 H Eos # (Auto) 0.20 Baso # (Auto) 0.03 Immature Gran # (Auto) 0.02 Sodium 140 Potassium 3.5 Chloride 105 Carbon Dioxide 29 Anion Gap 6.0 BUN 8 Creatinine 0.70 Est Cr Clr Drug Dosing 76.3 Est GFR ( Amer) 98.9 Est GFR (Non-Af Amer) 85.4 BUN/Creatinine Ratio 11.3 Glucose 116 H Calcium 9.4 Phosphorus 2.9 Magnesium 2.2 Total Bilirubin 0.8 AST 15 ALT 19 Alkaline Phosphatase 77 Troponin I < 0.015 Total Protein 8.1 Albumin 3.7 Globulin 4.4 H Albumin/Globulin Ratio 0.8 L TSH 3.580 Diagnostic Findings EKG obtained at time admission revealed atrial fibrillation rapid ventricular response. Echocardiogram obtained 01/31/2020 revealed normal LV function. Mild LVH. Mild mitral regurgitation. Chest x-ray obtained at the time of admission did reveal any acute cardiopulmonary abnormality. PG Care Time/CCT Total # of Minutes Spent Total Time Spent with Patient: Total time spent is greater than 50% in coordination of care (as documented) at patient's floor/unit and/or counseling patient: Coding Level of Care Code 10595 Initial Inpt Care Lvl 3 Diagnoses Atrial fibrillation with RVR I48.91 Hypertension I10 Hypertension type: essential hypertension Mitral regurgitation I34.0 Left ventricular hypertrophy I51.7 (1) Hypertension Hypertension type: essential hypertension Qualified Code(s): I10 - Essential (primary) hypertension
--- NOTE | 2020-02-21 18:24 | Discharge Summary ---
Date of Service February 21, 2020 Admission HPI Per Admitting Provider this patient is a 75-year-old female who presents emergency department with complaints of a racing heart. Patient states she was hospitalized a little over 2 weeks ago for new onset rapid atrial fibrillation. Patient was placed on apixaban and carvedilol. Yesterday she started olmesartan for blood pressure management. Patient states she has been feeling fatigued recently but denies fevers, chills, chest pain or significant shortness of breath. She states she does have a cool sensation across the chest when the heart is racing. She denies any nausea, vomiting or diarrhea recently. Patient denies medical ind iscretion. She is complains of what sounds to be a tension headache and recently has been starting to exercise which is made her muscles sore Principal Diagnosis atrial fibrillation rapid response converted to normal sinus rhythm Discharge Exam The patient appeared well Vital signs as documented. Lungs are clear to auscultation and appear unlabored Cardiac exam, Rhythm is regular.. No murmurs, rubs or gallops. Abdominal exam reveals normal bowel sounds, soft non tender, no masses Extremities are nonedematous and both pedal pulses are normal. Neurologic exam is alert and oriented, no focal loss of strength or sensation Skin is without bruises or rashes Psychologically is without concerns for anxiety or depression Discharge Data Allergies Allergy/AdvReac Type Severity Reaction Status Date / Time celecoxib Allergy Intermediate RASH Verified 02/21/20 05:16 levofloxacin Allergy Unknown HIVES Verified 02/21/20 05:16 meperidine AdvReac Mild n/v Verified 02/21/20 05:16 Consultations 02/21/20 06:09 ED Decision to Admit Stat 02/21/20 08:33 Consult Cardiology Routine Hospital Course (1) Atrial fibrillation with RVR: Patient returns with atrial fibrillation rapid ventricular rate she has no chest pain associated with it. She can sense her palpitations. She was transitioned from carvedilol to metoprolol and maintained anticoagulation with Eliquis. She did an echocardiogram less than 1 month ago showing a preserved ejection fraction. She converted to sinus rhythm, Cardiology consultation recommneds her to be on metoprolol and diltiazem 240 a day, these were sent to [facility] (2) Fibromyalgia: Patient on an SSRI antidepressant for her fibromyalgia (3) Depression: Patient has depression for which she takes Lexapro this will be continued. She also takes amitriptyline unclear whether morning or night will further look into this (4) Acid reflux disease: Patient typically taking omeprazole proton pump inhibitor will be continued per formulary Total Time Total Time Spent Total Time Spent (In Minutes): It required greater than 30 minutes to prepare this patient for discharge Discharge Plan Discharge Items Patient Disposition: Home - Self-Care Reason For Visit: AFIB RVR Discharge Diagnosis: atrial fibrillation with rapid rate converted to normal sinus rhythm Activity: Resume your previous activity Non-emergency contact: Primary Care Provider and Nuclear Weapons Custodian Call non-emergency contact if: you have any medication questions and your symptoms worsen Follow-up/Referrals: Tin Soliz MD [Physician] - Tyrese Morrell DO [Primary Care Provider] - Diet: Regular Addtl Attending Provider Instructions: please get to pharmacy early 02/21 to peanut picker and take new prescriptions follow up with [facility] cardiology Pending Studies at Discharge: No Stand-Alone Forms: [facility], Smoking Cessation Medications and DC Order Prescriptions: New metoprolol tartrate 25 mg Tablet 25 mg PO BID Qty: 60 RF: 5 diltiazem HCl 240 mg capsule,extended release 24hr 240 mg PO DAILY Qty: 30 RF: 5 Continued meclizine 25 mg tablet 25 mg PO TID PRN (Reason: motion sickness) Qty: 30 RF: 0 cholecalciferol (vitamin D3) 1,000 unit capsule 1,000 units PO QAM Qty: 90 RF: 0 omeprazole 40 mg capsule,delayed release(DR/EC) 40 mg PO QAM Qty: 30 RF: 5 multivitamin [Daily Multi-Vitamin] Tablet 1 tab PO DAILY RF: 0 Eliquis 5 mg tablet 5 mg PO BID 30 Days Qty: 60 RF: 3 escitalopram oxalate [Lexapro] 5 mg tablet 5 mg PO DAILY Qty: 30 RF: 2 vitamin B complex Capsule 1 cap PO QAM RF: 0 amitriptyline 25 mg tablet 25 mg PO DAILY RF: 0 Discontinued olmesartan 5 mg tablet 5 mg PO DAILY Qty: 30 RF: 2 amlodipine [Norvasc] 5 mg tablet 5 mg PO QAM Qty: 90 RF: 1 carvedilol 12.5 mg tablet 12.5 mg PO BID 30 Days Qty: 60 RF: 3 Discharge Orders: Discharge Order (Routine); Ordered 02/21/20 Ordered By: Hilario Li Admission Data Admit Date/Time: 02/21/20 07:19 Attending Provider: Hilario Li Admit Provider: Hilario Li Primary Care Provider: Tyrese Morrell Other Providers: Hudson Woods ; Tin Soliz Coding Level of Care Code D/C Day Management >30 mins Diagnoses Atrial fibrillation with RVR I48.91 Fibromyalgia M79.7 Depression F32.9 Acid reflux disease K21.9
--- NOTE | 2020-02-21 19:17 | Electrocardiogram Report ---
Test Reason : Blood Pressure : / mmHG Vent. Rate : 142 BPM Atrial Rate : 113 BPM P-R Int : 000 ms QRS Dur : 088 ms QT Int : 296 ms P-R-T Axes : 000 038 009 degrees QTc Int : 455 ms Atrial fibrillation Nonspecific ST abnormality Abnormal ECG Confirmed by James Mayers ([id number]) on 02/21/2020 7:17:39 PM Referred By: REFERRED SELF Confirmed By:Fam Mayers
[2020-02-21] MEDS ORDERED: METOPROLOL TARTRATE 25 MG TAB PO SCH (21:00)
[2020-02-22] MEDS ORDERED: PANTOprazole 40 MG TAB PO SCH (09:00)
== END 2020-02-21 19:26 | disposition home or self-care (01) ==
LOC: ED 04:46 → 2S 07:19 → INTOOBSV 07:19 → 2S 07:31

== ENCOUNTER 2022-07-24 02:21 | Observation (INO) ==
[2022-07-24] MEDS ORDERED: ONDANSETRON INJ 2 MG/ML 2 ML VIAL IV STA (02:42)
[2022-07-24] MEDS ORDERED: NITROGLYCERIN SL 0.4 MG/TAB TAB SL STA (02:42)
[2022-07-24 02:53] LABS: iSTAT Creatinine 0.8 mg/dl (0.6-1.3); iSTAT Hemoglobin 13.6 g/dl (12.0-16.0); iSTAT Ionized Calcium 1.2 mmol/l (1.12-1.32); iSTAT Potassium 3.9 mmol/L (3.3-5.0)
[2022-07-24 02:58] LABS: Basophils # (auto) 0.08 K/uL (0-0.2); Basophils % (auto) 0.5 %; Eosinophils # (auto) 0.24 K/uL (0-0.50); Eosinophils % (auto) 1.5 %; Hematocrit (blood only) 37.9 % (34.1-44.9); Hemoglobin 13.4 g/dl (12.0-16.0); Immature Granulocytes # (auto) 0.08 K/uL (0.00-0.02); Immature Granulocytes % (auto) 0.5 %; Lymphocytes # (auto) 1.69 K/uL (1.2-3.4); Lymphocytes % (auto) 10.8 %; Mean Corpuscular Hemoglobin 32.9 pg (25.0-34.0); Mean Corpuscular Hgb Conc 35.4 g/dL (32.0-36.0); Mean Corpuscular Volume 93.1 fL (80.0-100.0); Mean Platelet Volume 12.1 fL (9.4-12.3); Monocytes # (auto) 1.28 K/uL (0.24-0.82); Monocytes % (auto) 8.2 %; Neutrophils # (auto) 12.23 K/uL (1.4-6.5); Neutrophils % (auto) 78.5 %; Platelet Count 222 K/uL (130-400); RDW Coefficient of Variation 11.9 % (11.5-14.5); RDW Standard Deviation 40.9 fL (36.4-46.3); Red Blood Count 4.07 M/uL (3.93-5.22)
[2022-07-24 03:10] LABS: Appearance Urine Cloudy (Clear); Bacteria Urine Automated Negative (Negative); Bilirubin Urine Negative (Negative); Blood Urine Negative (Negative); Color Urine Dark Yellow; Epithelial Cell Urine Auto >30 /lpf (0-5); Glucose Urine UA Negative (Negative); Ketones Urine Trace (Negative); Leukocyte Esterase Urine 2+ (Negative); Nitrite Urine Negative (Negative); Protein Urine Negative (Negative); RBC Urine Automated 0-4 /hpf (0-4); Specific Gravity Urine 1.021 (1.000-1.030); Urobilinogen Urine Negative (Negative); WBC Urine Automated >30 /hpf (0-5)
[2022-07-24] MEDS ORDERED: OPTIRAY 320 500ml IV ONE (03:12)
--- NOTE | 2022-07-24 03:12 | Emergency Department Note ---
History of Present Illness General Chief complaint: Shortness of Breath/Dyspnea Stated complaint: SOB Time Seen by Provider: 07/24/22 02:26 History of Present Illness This 77-year-old presents to the ER complaining of chest pain, nausea, shortness of breath and diaphoresis tonight Location: Chest Quality: Discomfort Severity: Moderate Duration: Tonight Timing: Tonight Context: Patient was concerned and came in Modifying factors: better with rest; worse with activity Patient states she is concerned she might be in A. fib or something else. No prior heart attack. No recent echo. No prior stress test. She takes Eliquis for her A. fib. They increased her metoprolol last week. Patient denies fevers, vomiting, diarrhea, numbness, tingling, localized weakness. She states the chest pain does seem to go to her neck. Home Medications Medication Instructions Recorded Confirmed Type cholecalciferol (vitamin D3) 25 1,000 units PO DAILY #90 caps 05/15/19 07/24/22 History mcg (1,000 unit) capsule multivitamin (Daily Multi-Vitamin 1 tab PO QAM 02/02/20 07/24/22 History tablet) buspirone 10 mg tablet 10 mg PO TID PRN anxiety #90 tabs 01/09/21 07/24/22 Rx losartan 100 mg tablet 100 mg PO QAM 10/10/21 07/24/22 History apixaban 5 mg tablet (Eliquis) 5 mg PO BID 30 days #180 tabs 10/21/21 07/24/22 Rx diltiazem HCl 300 mg 300 mg PO DAILY #90 caps 03/09/22 07/24/22 Rx capsule,extended release 24 hr mecobalamin (vitamin B12) 1,000 1,000 mcg sublingual DAILY 03/25/22 07/24/22 History mcg disintegrating tablet,sublingual omeprazole 40 mg capsule,delayed 40 mg PO QAM #90 caps 06/10/22 07/24/22 Rx release metoprolol succinate 25 mg 50 mg PO DAILY 07/24/22 07/24/22 History tablet,extended release 24 hr Allergies Allergy/AdvReac Type Severity Reaction Status Date / Time celecoxib Allergy Intermediate RASH Verified 07/24/22 02:44 levofloxacin Allergy Intermediate HIVES Verified 07/24/22 02:44 meperidine AdvReac Intermediate n/v Verified 07/24/22 02:44 Past Med/Surg History Medical History Anxiety Atrial fibrillation on eliquis - follows with Dr. Soliz Fibromyalgia GERD (gastroesophageal reflux disease) History of compression fracture of spine thoracic History of depression History of diverticulitis History of hyperthyroidism History of wrist fracture Left Hypertension Osteoporosis Vertigo Vitamin D deficiency Surgical History H/O oral surgery H/O tubal ligation History of carpal tunnel surgery of left wrist 10-21-21 Dr Marin, [facility], [place] History of hemorrhoidectomy History of open reduction and internal fixation (ORIF) procedure Lt femur Hx of appendectomy Hx of cholecystectomy S/P colon resection 2/2 diverticular disease S/P tonsillectomy Family History Mother Breast cancer Hypertension Father Prostate cancer Colorectal cancer Hypertension Other No family history of adverse response to anesthesia Denies family history of Ovarian cancer Diabetes Myocardial infarction Social History Smoking Status: Never smoker Second Hand Exposure: No; Hx Alcohol Use: No Hx Substance Use: No Preferred Language: Pashto Communication Ability: Effective Visual Impairment: Limited Hearing Ability: Normal Commercial Coordinator Required: No Beliefs That Will Affect Care: None marital status: Current Living Situation: Spouse current occupational status: retired How many Children do You have: 2 Feels Safe at Home: Yes Childhood Exposure to Second-Hand Smoke: Yes caffeine: Yes (coffee) during the past year weight has: remained stable Dental Care, Regularly: No Physical Activity Frequency: 3-4 Times per Week Seatbelt Use: always Sunscreen Use: No Do you think of yourself as: straight/heterosexual Gender Identity: Female Assistive Devices: Denture - Upper, Denture - Lower and Glasses Review of Systems A total of 10 systems reviewed and were otherwise negative Physical Exam Vital Signs Vital Signs - 24 hr 07/24/22 02:23 07/24/22 02:54 07/24/22 02:54 Temperature 36.8 C Temperature Source Temporal Artery Scan Pulse Rate 96 H Pulse Rate from SpO2 Sensor Respiratory Rate 17 Respiratory Effort / Characteristics Non-Labored Spontaneous Non-Labored Respiratory Depth Normal Blood Pressure 188/74 H Blood Pressure Mean 112 Blood Pressure Position Sitting Pulse Oximetry 93 Oxygen Delivery Method Room Air Room Air Room Air Oxygen Flow Rate Sepsis Recent Fever Within 48 Hours No Sepsis New/Unexplained Change in Mental Status No Sepsis Action Taken by Nursing No Action Required 07/24/22 03:55 07/24/22 04:00 07/24/22 04:11 Temperature Temperature Source Pulse Rate 90 89 Pulse Rate from SpO2 Sensor 90 89 Respiratory Rate 22 21 Respiratory Effort / Characteristics Respiratory Depth Blood Pressure 194/78 H Blood Pressure Mean 116 Blood Pressure Position Pulse Oximetry 93 93 Oxygen Delivery Method Oxygen Flow Rate Sepsis Recent Fever Within 48 Hours Sepsis New/Unexplained Change in Mental Status Sepsis Action Taken by Nursing 07/24/22 04:11 07/24/22 04:30 07/24/22 05:00 Temperature Temperature Source Pulse Rate 96 H 92 H 97 H Pulse Rate from SpO2 Sensor 95 H 87 97 H Respiratory Rate 28 H 15 20 Respiratory Effort / Characteristics Respiratory Depth Blood Pressure Blood Pressure Mean Blood Pressure Position Pulse Oximetry 93 100 91 Oxygen Delivery Method Nasal Cannula Oxygen Flow Rate 3 Sepsis Recent Fever Within 48 Hours Sepsis New/Unexplained Change in Mental Status Sepsis Action Taken by Nursing VITALS: Vitals are noted on the nurse's note and reviewed by myself. Vital signs stable. GENERAL: Pleasant female with mild diaphoresis who appears uncomfortable, in no acute distress, well-developed well-nourished. SKIN: The skin was without rashes, erythema, edema, or bruising. There is no tenting of the skin. Capillary reflex less than 2 seconds. HEAD: Normocephalic atraumatic. EARS: External auditory canals clear EYES: Pupils equal round and reactive to light and accommodation. Conjunctivae without injection, sclerae without icterus. Extraocular movements intact. NOSE: Patent, turbinates without inflammation or discharge. MOUTH: Mucous membranes moist. Pharynx without erythema or exudate. Uvula midline. Airway patent. Tongue does not deviate. NECK: Supple without nuchal rigidity. No lymphadenopathy. No thyromegaly. Cervical spine is nontender. No JVD. HEART: Regular rate and rhythm LUNGS: Clear to auscultation bilaterally without wheezes, rales or rhonchi. No retractions or accessory muscle use. ABDOMEN: Positive bowel sounds x 4. Normal tympanic percussion. Soft, nontender, without masses or organomegaly. Sainz sign negative. No guarding or rebound tenderness. No CVA tenderness MUSCULOSKELETAL: No muscle atrophy, erythema, or edema noted. NEURO: Patient was alert and oriented to person place and time. Normal sensation to light and sharp touch. No focal neurological deficits. Course Administered Medications Discontinued Medications Albuterol (Albut/Ipratrop 3mg/0.5mg Neb 3 Ml Vial) 3 ml NEB NOW STA; Protocol Stop: 07/24/22 04:15 Last Admin: 07/24/22 04:24 Dose: 3 ml Documented By: AUBRIE Famotidine (Pepcid 20mg Iv Push) 20 mg in 5 mls @ 2.5 mls/min IV NOW STA Stop: 07/24/22 03:27 Last Admin: 07/24/22 03:41 Dose: 2.5 mls/min Documented By: AUBRIE Ioversol (Optiray 320 500ml) 125 ml IV ONCE ONE Stop: 07/24/22 03:13 Last Admin: 07/24/22 03:12 Dose: 118 ml Documented By: THADDEUS Nitroglycerin (Nitroglycerin Sl 0.4 Mg/Tab Tab) 0.4 mg SL NOW STA Stop: 07/24/22 02:43 Last Admin: 07/24/22 02:50 Dose: 0.4 mg Documented By: AUBRIE Ondansetron HCl (Ondansetron Inj 2 Mg/Ml 2 Ml Vial) 4 mg IV NOW STA Stop: 07/24/22 02:43 Last Admin: 07/24/22 02:50 Dose: 4 mg Documented By: AUBRIE Medical Decision Making Medical Records Attestation: I reviewed the patient's medical records. Home Medications Current Medication List: was personally reviewed by me Laboratory Data Attestation: I reviewed the patient's lab results. Result diagrams: 07/24/22 02:38 07/24/22 02:38 Lab Results 07/24/22 07/24/22 07/24/22 Range/Units 02:38 02:38 02:41 WBC 15.60 H (4.8-10.8) K/ul RBC 4.07 (3.93-5.22) M/uL Hgb 13.4 (12.0-16.0) g/dl POC Hgb 13.6 (12.0-16.0) g/dl Hct 37.9 (34.1-44.9) % POC Hct 40 (37-47) % MCV 93.1 (80.0-100.0) fL MCH 32.9 (25.0-34.0) pg MCHC 35.4 (32.0-36.0) g/dL RDW Std Deviation 40.9 (36.4-46.3) fL RDW Coeff of Manju 11.9 (11.5-14.5) % Plt Count 222 (130-400) K/uL MPV 12.1 (9.4-12.3) fL Immature Gran % (Auto) 0.5 % Neut % (Auto) 78.5 % Lymph % (Auto) 10.8 % Murray % (Auto) 8.2 % Eos % (Auto) 1.5 % Baso % (Auto) 0.5 % Neut # (Auto) 12.23 H (1.4-6.5) K/uL Lymph # (Auto) 1.69 (1.2-3.4) K/uL Murray # (Auto) 1.28 H (0.24-0.82) K/uL Eos # (Auto) 0.24 (0-0.50) K/uL Baso # (Auto) 0.08 (0-0.2) K/uL Immature Gran # (Auto) 0.08 H (0.00-0.02) K/uL POC Sodium 137 (135-144) mmol/L Sodium 136 (136-145) mmol/L POC Potassium 3.9 (3.3-5.0) mmol/L Potassium 3.9 (3.5-5.1) mmol/L POC Chloride 100 L (101-112) mmol/L Chloride 101 (98-107) mmol/L Carbon Dioxide 26 (21-32) mmol/L POC Total CO2 28 (24-31) mmol/L Anion Gap 9 (3-11) POC Anion Gap 15.0 L (16-25) mmol/L POC BUN 19 H (7-18) mg/dl BUN 18 (6-23) mg/dl Creatinine 0.88 (0.6-1.2) mg/dl POC Creatinine 0.8 (0.6-1.3) mg/dl Est Cr Clr Drug Dosing 59.1 ml/min Est GFR ( Amer) 74.0 ml/min Est GFR (Non-Af Amer) 63.8 ml/min BUN/Creatinine Ratio 20.5 H (10-20) Glucose 106 H (70-99(Fasting)) mg/dl POC Glucose (other) 111 H (70-99) mg/dl Calcium 9.6 (8.5-10.1) mg/dl POC Ioniz Calcium Jay Jay 1.20 (1.12-1.32) mmol/l Magnesium 2.0 (1.7-2.4) mg/dl Total Bilirubin 1.0 (0.2-1.0) mg/dl AST 23 (13-39) U/L ALT 14 (7-52) U/L Alkaline Phosphatase 64 (34-104) U/L Troponin I High Sens 14.1 H (0-14) pg/ml Total Protein 8.0 (6.0-8.3) gm/dl Albumin 4.5 (3.4-5.0) gm/dl Globulin 3.5 (2.5-4.0) gm/dl Albumin/Globulin Ratio 1.3 (0.9-2) Urine Color Urine Appearance (Clear) Urine pH (4.5-7.5) Ur Specific [place] (1.000-1.030) Urine Protein (Negative) Urine Glucose (UA) (Negative) Urine Ketones (Negative) Urine Blood (Negative) Urine Nitrite (Negative) Urine Bilirubin (Negative) Urine Urobilinogen (Negative) Ur Leukocyte Esterase (Negative) Urine WBC (Auto) (0-5) /hpf Urine RBC (Auto) (0-4) /hpf U Hyaline Cast (Auto) (0-5) /lpf U Epithel Cells (Auto) (0-5) /lpf Urine Bacteria (Auto) (Negative) SARS-CoV-2, RNA, NAAT (NEGATIVE) 07/24/22 07/24/22 07/24/22 Range/Units 02:42 03:40 04:11 WBC (4.8-10.8) K/ul RBC (3.93-5.22) M/uL Hgb (12.0-16.0) g/dl POC Hgb (12.0-16.0) g/dl Hct (34.1-44.9) % POC Hct (37-47) % MCV (80.0-100.0) fL MCH (25.0-34.0) pg MCHC (32.0-36.0) g/dL RDW Std Deviation (36.4-46.3) fL RDW Coeff of Manju (11.5-14.5) % Plt Count (130-400) K/uL MPV (9.4-12.3) fL Immature Gran % (Auto) % Neut % (Auto) % Lymph % (Auto) % Murray % (Auto) % Eos % (Auto) % Baso % (Auto) % Neut # (Auto) (1.4-6.5) K/uL Lymph # (Auto) (1.2-3.4) K/uL Murray # (Auto) (0.24-0.82) K/uL Eos # (Auto) (0-0.50) K/uL Baso # (Auto) (0-0.2) K/uL Immature Gran # (Auto) (0.00-0.02) K/uL POC Sodium (135-144) mmol/L Sodium (136-145) mmol/L POC Potassium (3.3-5.0) mmol/L Potassium (3.5-5.1) mmol/L POC Chloride (101-112) mmol/L Chloride (98-107) mmol/L Carbon Dioxide (21-32) mmol/L POC Total CO2 (24-31) mmol/L Anion Gap (3-11) POC Anion Gap (16-25) mmol/L POC BUN (7-18) mg/dl BUN (6-23) mg/dl Creatinine (0.6-1.2) mg/dl POC Creatinine (0.6-1.3) mg/dl Est Cr Clr Drug Dosing ml/min Est GFR ( Amer) ml/min Est GFR (Non-Af Amer) ml/min BUN/Creatinine Ratio (10-20) Glucose (70-99(Fasting)) mg/dl POC Glucose (other) (70-99) mg/dl Calcium (8.5-10.1) mg/dl POC Ioniz Calcium Jay Jay (1.12-1.32) mmol/l Magnesium (1.7-2.4) mg/dl Total Bilirubin (0.2-1.0) mg/dl AST (13-39) U/L ALT (7-52) U/L Alkaline Phosphatase (34-104) U/L Troponin I High Sens 14.9 H (0-14) pg/ml Total Protein (6.0-8.3) gm/dl Albumin (3.4-5.0) gm/dl Globulin (2.5-4.0) gm/dl Albumin/Globulin Ratio (0.9-2) Urine Color Dark Yellow Urine Appearance Cloudy A (Clear) Urine pH 6.0 (4.5-7.5) Ur Specific [place] 1.021 (1.000-1.030) Urine Protein Negative (Negative) Urine Glucose (UA) Negative (Negative) Urine Ketones Trace H (Negative) Urine Blood Negative (Negative) Urine Nitrite Negative (Negative) Urine Bilirubin Negative (Negative) Urine Urobilinogen Negative (Negative) Ur Leukocyte Esterase 2+ H (Negative) Urine WBC (Auto) >30 H (0-5) /hpf Urine RBC (Auto) 0-4 (0-4) /hpf U Hyaline Cast (Auto) 5-10 H (0-5) /lpf U Epithel Cells (Auto) >30 H (0-5) /lpf Urine Bacteria (Auto) Negative (Negative) SARS-CoV-2, RNA, NAAT NEGATIVE (NEGATIVE) Imaging Data Attestation: I personally reviewed and interpreted this imaging study as follows: MDM Narrative Prior records/ancillary studies reviewed. Triage Nursing notes reviewed. Additional history obtained from family. The patient's history was concerning for chest pain. Differential diagnosis: Etiologies such as cardiac ischemia, aortic dissection, pulmonary embolism, pneumonia, pneumothorax, musculoskeletal, infections, pericarditis, myocarditis, esophageal rupture, gastrointestinal, as well as others were entertained. Physical examination: As above. ER treatment provided: An order was placed for continuous cardiac monitoring. The monitor shows a rate of 60-1 10 with a sinus rhythm. Zofran nitroglycerin normal saline, zosyn, duo neb On reassessment the patient felt better. Diagnostic interpretation by me: #1 the electrocardiogram was Order for chest pain EKG: Occasional PVC, normal sinus, Poor baseline. Impression normal sinus rhythm with occasional PVC interpreted I think arrhythmia is unlikely. EKG shows normal sinus rhythm with no interval abnormalities such as QT prolongation or WPW. There are no findings to suggest Brugada syndrome. Cardiac monitoring in the emergency department reveals no tachycardic or bradycardic dysrhythmia. Hypertrophic cardiomyopathy was considered but there are no clear historical elements pointing toward this. EKG is not suggestive. The QRS voltage is not extremely large and there are no suggestive Q waves. #2 EKG ordered for chest pain EKG: Normal sinus, poor baseline, no acute ST-T wave changes. Rate 91. Impression normal sinus rhythm poor baseline interpreted by myself I think arrhythmia is unlikely. EKG shows normal sinus rhythm with no interval abnormalities such as QT prolongation or WPW. There are no findings to suggest Brugada syndrome. Cardiac monitoring in the emergency department reveals no tachycardic or bradycardic dysrhythmia. Hypertrophic cardiomyopathy was considered but there are no clear historical elements pointing toward this. EKG is not suggestive. The QRS voltage is not extremely large and there are no suggestive Q waves. The labs revealed minimally elevated troponin and repeat was ordered. Leukocytosis Negative COVID Imaging studies: CTA OTHER - CTA CHEST ANGIO WITHOUT/WITH FOR DISSECTION: Mild aortic atherosclerosis. No acute abnormality or aneurysm. No central pulmonary emboli. No pericardial effusion. Patchy right lung consolidations. Bilateral thickening of the intralobular septae. Findings may represent pneumonia and/or edema. Demineralized bones. Moderate compression fracture deformity of T8. Radiologist: Pj Lou MD HEART SCORE: Hx: high/mod/low suspicion:1 ECG: ST depression/nonspecific changes/normal: 1 Age: Greater than 65/45-64/less than 45: 2 Risk factors: (Hypertension, hyperlipidemia, diabetes, coronary disease, tobacco use, cocaine use): 2 Troponin: Greater than 2 times normal limits/1-2 times normal limits/normal: 0 Total: 6 CURB Score: Confusion: 0 Urea (BUN > 19): 0 Respiratory Rate (>30/min): 0 Blood Pressure: Diastolic <60 or Systolic <90 0 Age (>= 65) 1 Total (0-1 low risk, 2-5 high risk): 1 Consultation: A consultation was placed with the hospitalist. The case was discussed and diagnostics were reviewed. The patient was evaluated in the ER for further t reatment. Exam and history seem consistent with chest pain with pneumonia who is hypoxic with ambulation. Patient was given antibiotics. She is given nebulizer. Imaging was negative for dissection or PE. Medicine was consulted. She will be evaluated for admission. Repeat EKG was ordered and unchanged. Delta Trop was ordered. Patient is agreeable. By the evaluation outlined above emergent etiologies such as aortic dissection, pulmonary embolism, pneumothorax pericarditis, myocarditis, gastrointestinal, as well as others were deemed relatively unlikely. The pt informed about the findings as listed above. All questions were answered and pleased with the treatment. The chart was completed utilizing [employer] Speech voice recognition software. Grammatical errors, random word insertions, pronoun errors, and incomplete sentences are an occassional consequence of this system due to software limitations, ambient noise, and hardware issues. Any formal questions or concerns about the content, text, or information contained within the body of this dictation should be directly addressed to the physician porcelain buildup assistant for clarification. Impression & Plan Community acquired pneumonia, Chest pain, Hypoxemia Discharge Plan Visit Data Chief Complaint: Shortness of Breath/Dyspnea Stated Complaint: SOB ED Provider: Madi Lazaro ED Midlevel Provider: Brigitte Rg Discharge Problem: Community acquired pneumonia, Chest pain, Hypoxemia Patient Disposition: Admitted As Inpatient Condition: Fair Discharge Instructions Interventions: ED Discharge Assessment Last Done: 07/24/22 05:18 Forms Stand Alone Forms: [facility] [place] [facility] Prescriptions Prescriptions: No Action Eliquis 5 mg tablet 5 mg PO BID 30 Days Qty: 180 3RF omeprazole 40 mg capsule,delayed release(DR/EC) 40 mg PO QAM Qty: 90 3RF buspirone 10 mg tablet 10 mg PO TID PRN (Reason: anxiety) Qty: 90 2RF cholecalciferol (vitamin D3) 1,000 unit capsule 1,000 units PO DAILY Qty: 90 multivitamin [Daily Multi-Vitamin] Tablet 1 tab PO QAM mecobalamin (vitamin B12) 1,000 mcg tablet,disintegrating 1,000 mcg sublingual DAILY Rx Instructions: place tablet under tongue and allow to dissolve for at least30 secs before swallowing diltiazem HCl 300 mg capsule,extended release 24hr 300 mg PO DAILY Qty: 90 3RF losartan 100 mg tablet 100 mg PO QAM Rx Instructions: for high blood pressure metoprolol succinate 25 mg tablet extended release 24 hr 50 mg PO DAILY Referrals Referrals: Tyrese Morrell DO [Primary Care Provider] - : Community acquired pneumonia Qualifiers: Laterality: right Lung location: unspecified part of lung Qualified Code(s): J18.9 - Pneumonia, unspecified organism
[2022-07-24] MEDS ORDERED: FAMOTIDINE 20MG IV PUSH 20 MG/5 ML SYR IV STA (03:26)
[2022-07-24 03:33] LABS: Albumin Globulin Ratio 1.3 (0.9-2); Albumin Level 4.5 gm/dl (3.4-5.0); BUN Creatinine Ratio 20.5 (10-20); Calcium 9.6 mg/dl (8.5-10.1); Creatinine Clr Calc Pharmacy 59.1 ml/min; Est GFR (Non-African American) 63.8 ml/min; Globulin 3.5 gm/dl (2.5-4.0); Potassium 3.9 mmol/L (3.5-5.1); Troponin I High Sensitivity 14.1 pg/ml (0-14)
[2022-07-24] MEDS ORDERED: ALBUT/IPRATROP 3MG/0.5MG NEB 3 ML VIAL NEB STA (04:14)
[2022-07-24] MEDS ORDERED: PIPERACILLIN/TAZOBACTAM 4.5 GM/120 ML BAG IV ONE (04:44)
--- NOTE | 2022-07-24 04:54 | History & Physical Report ---
Date of Service July 24, 2022 Assessment & Plan (1) Hypoxemia: Plan: ?Infection vs pulmonary edema - patient with recent atrial fibrillation with RVR, increase in her Metoprolol. No infectious prodrome prior to wheezing tonight -Check BNP -Check Procalcitonin -Continue supplemental O2 as needed -Ceftriaxone and Azithromycin for now for possible CAP (2) Paroxysmal atrial fibrillation: Plan: Now in SR -Continue Metoprolol -Continue Eliquis -Continue Diltiazem (3) Depression: Plan: Chronic. Patient anxious at present -Continue Buspirone 10mg po TID (4) Hypertension: Plan: -Continue Losartan -Continue Diltiazem -Continue Metoprolol -Monitor BP History of Present Illness Chief Complaint: shortness of breath, wheezing Primary Care Provider: DO Valeria Cespedesalethea Elkins is a 77yo female with history of PAF on Apixaban anticoagulation, Fibromyalgia, GERD HTN and Hyperthyroidism presenting with SOB and wheeze. Patient was seen in the ER on 07/20/22 with atrial fibrillation with RVR. She was treated with NSS, Lopressor 5mg and Metoprolol XL 25mg PO with improvement in her heart rate. She was seen by Cardiology on 07/21/22. Her Toprol XL was increased to 50mg po daily. This evening at 0100 she woke with acute wheezing and shortness of breath. She reported her HR and blood pressure were elevated. She feels lightheaded. Denies fever, chills, cough, fatigue,, URI symptoms preceding. No additional complaints In the ER she is hypertensive, tachycardic, saturations of 88% with ambulation Allergies Allergy/AdvReac Type Severity Reaction Status Date / Time celecoxib Allergy Intermediate RASH Verified 07/24/22 02:44 levofloxacin Allergy Intermediate HIVES Verified 07/24/22 02:44 meperidine AdvReac Intermediate n/v Verified 07/24/22 02:44 Home Medications Medication Instructions Recorded Confirmed Type cholecalciferol (vitamin D3) 25 1,000 units PO DAILY #90 caps 05/15/19 07/24/22 History mcg (1,000 unit) capsule multivitamin (Daily Multi-Vitamin 1 tab PO QAM 02/02/20 07/24/22 History tablet) buspirone 10 mg tablet 10 mg PO TID PRN anxiety #90 tabs 01/09/21 07/24/22 Rx losartan 100 mg tablet 100 mg PO QAM 10/10/21 07/24/22 History apixaban 5 mg tablet (Eliquis) 5 mg PO BID 30 days #180 tabs 10/21/21 07/24/22 Rx diltiazem HCl 300 mg 300 mg PO DAILY #90 caps 03/09/22 07/24/22 Rx capsule,extended release 24 hr mecobalamin (vitamin B12) 1,000 1,000 mcg sublingual DAILY 03/25/22 07/24/22 History mcg disintegrating tablet,sublingual omeprazole 40 mg capsule,delayed 40 mg PO QAM #90 caps 06/10/22 07/24/22 Rx release metoprolol succinate 25 mg 50 mg PO DAILY 07/24/22 07/24/22 History tablet,extended release 24 hr Past Med/Surg History Medical History Anxiety Atrial fibrillation on eliquis - follows with Dr. Soliz Fibromyalgia GERD (gastroesophageal reflux disease) History of compression fracture of spine thoracic History of depression History of diverticulitis History of hyperthyroidism History of wrist fracture Left Hypertension Osteoporosis Vertigo Vitamin D deficiency Surgical History H/O oral surgery H/O tubal ligation History of carpal tunnel surgery of left wrist 10-21-21 Dr Marin, [facility] History of hemorrhoidectomy History of open reduction and internal fixation (ORIF) procedure Lt femur Hx of appendectomy Hx of cholecystectomy S/P colon resection 2/2 diverticular disease S/P tonsillectomy Family History Mother Breast cancer Hypertension Father Prostate cancer Colorectal cancer Hypertension Other No family history of adverse response to anesthesia Denies family history of Ovarian cancer Diabetes Myocardial infarction Social History Smoking Status: Never smoker Second Hand Exposure: No; Hx Alcohol Use: No Hx Substance Use: No Preferred Language: Congolese Communication Ability: Effective Visual Impairment: Limited Hearing 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: 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 Beliefs That Will Affect Care: None marital status: Current Living Situation: Spouse current occupational status: retired How many Children do You have: 2 Feels Safe at Home: Yes Childhood Exposure to Second-Hand Smoke: Yes caffeine: Yes (coffee) during the past year weight has: remained stable Dental Care, Regularly: No Physical Activity Frequency: 3-4 Times per Week Seatbelt Use: always Sunscreen Use: No Do you think of yourself as: straight/heterosexual Gender Identity: Female Assistive Devices: Denture - Upper, Denture - Lower and Glasses Review of Systems Review of Systems: All systems reviewed & are unremarkable except as noted in HPI & below Physical Exam Physical Exam: General: patient resting comfortably, NAD, anxious in appearance, AA&O x 4 Skin: warm, dry, intact, no rashes or lesions HEENT: NC/AT, PERRL, EOMI, anicteric sclera, conjunctiva without injection, external ear normal to inspection and nontender, nares patent, moist mucus membranes, dentition intact, no oropharyngeal lesions, neck supple, trachea midline, no LAD, no thyromegaly, no JVD Heart: +S1/S2, regular, tachycardic, no m/r/g Lungs: equal air entry bilaterally, no rales/rhonchi/wheezes Abd: +BS, soft, NT/ND, no masses/organomegaly/ascites Ext: warm, 2+ pulses in UE/LE bilaterally, no clubbing/cyanosis or edema Neuro: nonfocal, patient AA&O x 4, speech intact, no facial droop, moving all extremities on command with equal strength 5/5 Results & Data Results & Data ([facility]) Vital Signs (Past 12 Hours) Vital Signs Temp Pulse Resp BP Pulse Ox O2 Del Method 07/24/22 02:54 Room Air 07/24/22 02:54 Room Air 07/24/22 02:23 36.8 C 96 H 17 188/74 H 93 Room Air Laboratory Results Laboratory Results WBC 15.60 K/ul (4.8-10.8) H 07/24/22 02:38 RBC 4.07 M/uL (3.93-5.22) 07/24/22 02:38 Hgb 13.4 g/dl (12.0-16.0) 07/24/22 02:38 POC Hgb 13.6 g/dl (12.0-16.0) 07/24/22 02:41 Hct 37.9 % (34.1-44.9) 07/24/22 02:38 POC Hct 40 % (37-47) 07/24/22 02:41 MCV 93.1 fL (80.0-100.0) 07/24/22 02:38 MCH 32.9 pg (25.0-34.0) 07/24/22 02:38 MCHC 35.4 g/dL (32.0-36.0) 07/24/22 02:38 RDW Std Deviation 40.9 fL (36.4-46.3) 07/24/22 02:38 RDW Coeff of Manju 11.9 % (11.5-14.5) 07/24/22 02:38 Plt Count 222 K/uL (130-400) 07/24/22 02:38 MPV 12.1 fL (9.4-12.3) 07/24/22 02:38 Immature Gran % (Auto) 0.5 % 07/24/22 02:38 Neut % (Auto) 78.5 % 07/24/22 02:38 Lymph % (Auto) 10.8 % 07/24/22 02:38 [place] % (Auto) 8.2 % 07/24/22 02:38 Eos % (Auto) 1.5 % 07/24/22 02:38 Baso % (Auto) 0.5 % 07/24/22 02:38 Neut # (Auto) 12.23 K/uL (1.4-6.5) H 07/24/22 02:38 Lymph # (Auto) 1.69 K/uL (1.2-3.4) 07/24/22 02:38 [place] # (Auto) 1.28 K/uL (0.24-0.82) H 07/24/22 02:38 Eos # (Auto) 0.24 K/uL (0-0.50) 07/24/22 02:38 Baso # (Auto) 0.08 K/uL (0-0.2) 07/24/22 02:38 Immature Gran # (Auto) 0.08 K/uL (0.00-0.02) H 07/24/22 02:38 POC Sodium 137 mmol/L (135-144) 07/24/22 02:41 Sodium 136 mmol/L (136-145) 07/24/22 02:38 POC Potassium 3.9 mmol/L (3.3-5.0) 07/24/22 02:41 Potassium 3.9 mmol/L (3.5-5.1) 07/24/22 02:38 POC Chloride 100 mmol/L (101-112) L 07/24/22 02:41 Chloride 101 mmol/L (98-107) 07/24/22 02:38 Carbon Dioxide 26 mmol/L (21-32) 07/24/22 02:38 POC Total CO2 28 mmol/L (24-31) 07/24/22 02:41 Anion Gap 9 (3-11) 07/24/22 02:38 POC Anion Gap 15.0 mmol/L (16-25) L 07/24/22 02:41 POC BUN 19 mg/dl (7-18) H 07/24/22 02:41 BUN 18 mg/dl (6-23) 07/24/22 02:38 Creatinine 0.88 mg/dl (0.6-1.2) 07/24/22 02:38 POC Creatinine 0.8 mg/dl (0.6-1.3) 07/24/22 02:41 Est Cr Clr Drug Dosing 59.1 ml/min 07/24/22 02:38 Est GFR ( Amer) 74.0 ml/min 07/24/22 02:38 Est GFR (Non-Af Amer) 63.8 ml/min 07/24/22 02:38 BUN/Creatinine Ratio 20.5 (10-20) H 07/24/22 02:38 Glucose 106 mg/dl (70-99(Fasting)) H 07/24/22 02:38 POC Glucose (other) 111 mg/dl (70-99) H 07/24/22 02:41 Calcium 9.6 mg/dl (8.5-10.1) 07/24/22 02:38 POC Ioniz Calcium [place] 1.20 mmol/l (1.12-1.32) 07/24/22 02:41 Magnesium 2.0 mg/dl (1.7-2.4) 07/24/22 02:38 Total Bilirubin 1.0 mg/dl (0.2-1.0) 07/24/22 02:38 AST 23 U/L (13-39) 07/24/22 02:38 ALT 14 U/L (7-52) 07/24/22 02:38 Alkaline Phosphatase 64 U/L (34-104) 07/24/22 02:38 Troponin I High Sens 14.9 pg/ml (0-14) H 07/24/22 04:11 Total Protein 8.0 gm/dl (6.0-8.3) 07/24/22 02:38 Albumin 4.5 gm/dl (3.4-5.0) 07/24/22 02:38 Globulin 3.5 gm/dl (2.5-4.0) 07/24/22 02:38 Albumin/Globulin Ratio 1.3 (0.9-2) 07/24/22 02:38 Urine Color Dark Yellow 07/24/22 02:42 Urine Appearance Cloudy (Clear) A 07/24/22 02:42 Urine pH 6.0 (4.5-7.5) 07/24/22 02:42 Ur Specific [place] 1.021 (1.000-1.030) 07/24/22 02:42 Urine Protein Negative (Negative) 07/24/22 02:42 Urine Glucose (UA) Negative (Negative) 07/24/22 02:42 Urine Ketones Trace (Negative) H 07/24/22 02:42 Urine Blood Negative (Negative) 07/24/22 02:42 Urine Nitrite Negative (Negative) 07/24/22 02:42 Urine Bilirubin Negative (Negative) 07/24/22 02:42 Urine Urobilinogen Negative (Negative) 07/24/22 02:42 Ur Leukocyte Esterase 2+ (Negative) H 07/24/22 02:42 Urine WBC (Auto) >30 /hpf (0-5) H 07/24/22 02:42 Urine RBC (Auto) 0-4 /hpf (0-4) 07/24/22 02:42 U Hyaline Cast (Auto) 5-10 /lpf (0-5) H 07/24/22 02:42 U Epithel Cells (Auto) >30 /lpf (0-5) H 07/24/22 02:42 Urine Bacteria (Auto) Negative (Negative) 07/24/22 02:42 SARS-CoV-2, RNA, NAAT NEGATIVE (NEGATIVE) 07/24/22 03:40 Diagnostic Findings CTA - per STAT rad, patchy right lung, findings may represent infection or edema PG Care Time/CCT Total # of Minutes Spent Total Time Spent with Patient: Total time spent is greater than 50% in coordination of care (as documented) at patient's floor/unit and/or counseling patient: Coding Level of Care Code 04796 Initial Inpt Care Lvl 2 Diagnoses Hypoxemia R09.02 Paroxysmal atrial fibrillation I48.0 Depression F32.9 Hypertension I10 Hypertension type: essential hypertension (1) Hypertension Hypertension type: essential hypertension Qualified Code(s): I10 - Essential (primary) hypertension
[2022-07-24] MEDS ORDERED: POLYETHYLENE (MIRALAX) 17 GM PACK PO PRN (05:31)
[2022-07-24] MEDS ORDERED: busPIRone 5 MG TAB PO PRN (05:31)
[2022-07-24] MEDS ORDERED: BENZONATATE 100 MG CAPSULE PO PRN (05:31)
[2022-07-24] MEDS ORDERED: ONDANSETRON INJ 2 MG/ML 2 ML VIAL IV PRN (05:31)
[2022-07-24] MEDS ORDERED: AZITHROMYCIN 500 MG in DEXTROSE 5% 250 ML IV ONE (06:00)
--- NOTE | 2022-07-24 06:44 | XRay Report ---
XR chest 1V portable HISTORY: 77 years-old Female Dyspnea acute shortness of breath COMPARISON: CTA chest of same day TECHNIQUE: AP view of the chest. FINDINGS: Cardiac silhouette is enlarged. Bilateral mixed interstitial and alveolar opacities with trace pleura l effusions. Atherosclerosis of the aorta. Degenerative changes of the shoulders and spine. IMPRESSION: 1. Cardiomegaly with mixed interstitial and alveolar opacities suggestive of pulmonary edema. A super imposed pneumonia would be difficult to exclude. 2. Trace pleural effusions. ACT 112: Negative or not required by law. The above report was generated using voice recognition software. It may contain grammatical, syntax o r spelling errors. Electronically signed by: Dl Peralta M.D. 07/24/2022 6:42 AM
[2022-07-24] MEDS: ACETAMINOPHEN 325 MG TAB PO PRN ×3 (08:16→20:32)
--- NOTE | 2022-07-24 08:20 | CT Scan Report ---
CT angio chest dissec wo/w con HISTORY: 77 years-old Female cp/sweaty/sob/on DOAC acute chest pain with shortness of breath COMPARISON: Chest radiograph of same day TECHNIQUE: CTA of the chest was obtained both with and without the use of 118 mL Optiray 320. 3-D cor onal and sagittal MIPS were obtained from the axial data set and were submitted for review. All measu rements were obtained according to NASCET criteria. FINDINGS: CTA: Moderate cardiomegaly without pericardial effusion. Mild coronary artery calcifications. Atherosclero sis of the thoracic aorta with patency of the imaged great vessels. No thoracic aortic aneurysm, or d issection. No intramural or mediastinal hematoma. Unremarkable pulmonary artery. No pulmonary emboli are identified. CT CHEST: Unremarkable thyroid. Mild mediastinal and hilar adenopathy includes a 1.1 cm precarinal lymph node and and lymph nodes within the right hilum measuring up to 1.5 cm. Trace pleural effusions, right gre ater than left. There is no pneumothorax. Diffuse intralobular septal thickening with mild intermixed groundglass opacities within the right lung and subsegmental linear areas of consolidation. Bronchia l wall thickening with mild bibasilar mucous plugging. Cortical thinning of the kidneys. Tiny hiatal hernia. Unremarkable soft tissues. There is no acute fr acture identified. Degenerative changes of the shoulders and spine. Moderate T8 compression deformity without retropulsion appears chronic. IMPRESSION: 1. Cardiomegaly with interstitial pulmonary edema and trace pleural effusions. Mild patchy groundglas s opacities throughout the right lung favor asymmetric alveolar pulmonary edema. A superimposed pneum onia considered less likely. 2. Mediastinal and hilar lymphadenopathy is favored to be reactive. 3. Unremarkable CTA component of the exam. 4. Additional findings as above. ACT 112: Negative or not required by law. The above report was generated using voice recognition software. It may contain grammatical, syntax o r spelling errors. Electronically signed by: Dl Peralta M.D. 07/24/2022 8:18 AM
--- NOTE | 2022-07-24 08:50 | Hospitalist Progress Note ---
Date of Service July 24, 2022 Assessment & Plan (1) Hypoxemia: Plan: ?Infection vs pulmonary edema - patient with recent atrial fibrillation with RVR, increase in her Metoprolol. Currently NSR No infectious prodrome prior to wheezing tonight -BNP mildly elevated at 255 -Procalcitonin was <0.05 -WBC elevated 15.6 -Influenza A and B and Covid negative -Continue supplemental O2 as needed -Ceftriaxone and Azithromycin for now for possible CAP (2) Paroxysmal atrial fibrillation: Plan: Now in SR -Continue Metoprolol -Continue Eliquis -Continue Diltiazem (3) Depression: Plan: Chronic. Patient states she is feeling well and is less anxious than she was in the ER -Continue Buspirone 10mg po TID (4) Hypertension: Plan: -Continue Losartan -Continue Diltiazem -Continue Metoprolol -Monitor BP currently 134/68 Admission and Anticipated Discharge Date Admission Date: July 24, 2022 Subjective Patient is awake sitting up in bed. She states she is feeling slightly better today compared to last night. She tells me that she had some family members who recently had influenza. She denies any abdominal pain but states she had some mild nausea this AM. She is passing flatus but has not had a BM. Review of Systems Constitutional: + chills, + fatigue and + weakness; no fever Eyes: no blind spots, no diplopia and no eye pain Ear, Nose, Mouth, Throat: + nasal congestion and + post nasal drip; no facial pain and no sinus pain/pressure Respiratory: as per Subjective / HPI; no cough, no chest congestion and no pain on inspiration Cardiovascular: as per Subjective / HPI; no chest pain, no palpitations, no syncope and no edema Gastrointestinal: + nausea; no vomiting, no dysphagia, no constipation and no diarrhea/loose stools Genitourinary: no dysuria, no difficulty urinating and no urinary hesitancy Musculoskeletal: hx of fibromyalgia and sometimes has muscle and joint pain Integumentary: no rash, no lesions, no wounds and no pruritus Neurologic: no unsteadiness, no falls and no syncope Psychiatric: no depression, no anxiety and no confusion Physical Exam Constitutional: WD/WN, vitals as above ENMT: external ear and nose normal, oropharynx normal Neck: trachea midline, no thyromegaly Respiratory: normal respiratory effort and able to speak in complete sentences; no respiratory distress and no cough mild crackles in bases R>L Cardiovascular: RRR, no murmur, no edema Gastrointestinal (Abdomen): normal bowel sounds, soft, nontender, no hepatosplenomegaly Skin: no rashes, warm and dry Psychiatric: A+Ox3, euthymic affect Results & Data Results & Data ([facility]) Vital Signs (Past 12 Hours) Vital Signs Temp Pulse Pulse Resp BP BP Pulse Ox 07/24/22 07:25 36.5 C 99 H 18 154/76 H 93 07/24/22 05:40 07/24/22 05:40 36.8 C 101 H 18 176/74 H 98 07/24/22 05:00 97 H 20 91 07/24/22 04:30 92 H 15 100 07/24/22 04:11 96 H 28 H 93 07/24/22 04:11 194/78 H 07/24/22 04:00 89 21 93 07/24/22 03:55 90 22 93 07/24/22 02:54 07/24/22 02:54 07/24/22 02:23 36.8 C 96 H 17 188/74 H 93 O2 Del Method O2 Flow Rate 07/24/22 07:25 Nasal Cannula 3 07/24/22 05:40 Nasal Cannula 3 07/24/22 05:40 Nasal Cannula 3 07/24/22 05:00 Nasal Cannula 3 07/24/22 04:30 07/24/22 04:11 07/24/22 04:11 07/24/22 04:00 07/24/22 03:55 07/24/22 02:54 Room Air 07/24/22 02:54 Room Air 07/24/22 02:23 Room Air Laboratory Results Abnormal lab results 07/24/22 07/24/22 07/24/22 Range/Units 02:38 02:38 02:41 WBC 15.60 H (4.8-10.8) K/ul Neut # (Auto) 12.23 H (1.4-6.5) K/uL [place] # (Auto) 1.28 H (0.24-0.82) K/uL Immature Gran # (Auto) 0.08 H (0.00-0.02) K/uL POC Chloride 100 L (101-112) mmol/L POC Anion Gap 15.0 L (16-25) mmol/L POC BUN 19 H (7-18) mg/dl BUN/Creatinine Ratio 20.5 H (10-20) Glucose 106 H (70-99(Fasting)) mg/dl POC Glucose (other) 111 H (70-99) mg/dl Troponin I High Sens 14.1 H (0-14) pg/ml Urine Appearance (Clear) Urine Ketones (Negative) Ur Leukocyte Esterase (Negative) Urine WBC (Auto) (0-5) /hpf U Hyaline Cast (Auto) (0-5) /lpf U Epithel Cells (Auto) (0-5) /lpf 07/24/22 07/24/22 Range/Units 02:42 04:11 WBC (4.8-10.8) K/ul Neut # (Auto) (1.4-6.5) K/uL [place] # (Auto) (0.24-0.82) K/uL Immature Gran # (Auto) (0.00-0.02) K/uL POC Chloride (101-112) mmol/L POC Anion Gap (16-25) mmol/L POC BUN (7-18) mg/dl BUN/Creatinine Ratio (10-20) Glucose (70-99(Fasting)) mg/dl POC Glucose (other) (70-99) mg/dl Troponin I High Sens 14.9 H (0-14) pg/ml Urine Appearance Cloudy A (Clear) Urine Ketones Trace H (Negative) Ur Leukocyte Esterase 2+ H (Negative) Urine WBC (Auto) >30 H (0-5) /hpf U Hyaline Cast (Auto) 5-10 H (0-5) /lpf U Epithel Cells (Auto) >30 H (0-5) /lpf Diagnostic Findings Chest X-Ray 07/24/22 02:26 XR chest 1V portable HISTORY: 77 years-old Female Dyspnea acute shortness of breath COMPARISON: CTA chest of same day TECHNIQUE: AP view of the chest. FINDINGS: Cardiac silhouette is enlarged. Bilateral mixed interstitial and alveolar opacities with trace pleural effusions. Atherosclerosis of the aorta. Degenerative changes of the shoulders and spine. IMPRESSION: 1. Cardiomegaly with mixed interstitial and alveolar opacities suggestive of pulmonary edema. A superimposed pneumonia would be difficult to exclude. 2. Trace pleural effusions. ACT 112: Negative or not required by law. The above report was generated using voice recognition software. It may contain grammatical, syntax or spelling errors. Electronically signed by: Dl Peralta M.D. 07/24/2022 6:42 AM Chest CTA 07/24/22 02:42 CT angio chest dissec wo/w con HISTORY: 77 years-old Female cp/sweaty/sob/on DOAC acute chest pain with shortness of breath COMPARISON: Chest radiograph of same day TECHNIQUE: CTA of the chest was obtained both with and without the use of 118 mL Optiray 320. 3-D coronal and sagittal MIPS were obtained from the axial data set and were submitted for review. All measurements were obtained according to NASCET criteria. FINDINGS: CTA: Moderate cardiomegaly without pericardial effusion. Mild coronary artery calcifications. Atherosclerosis of the thoracic aorta with patency of the imaged great vessels. No thoracic aortic aneurysm, or dissection. No intramural or mediastinal hematoma. Unremarkable pulmonary artery. No pulmonary emboli are identified. CT CHEST: Unremarkable thyroid. Mild mediastinal and hilar adenopathy includes a 1.1 cm p recarinal lymph node and and lymph nodes within the right hilum measuring up to 1.5 cm. Trace pleural effusions, right greater than left. There is no pneumothorax. Diffuse intralobular septal thickening with mild intermixed groundglass opacities within the right lung and subsegmental linear areas of consolidation. Bronchial wall thickening with mild bibasilar mucous plugging. Cortical thinning of the kidneys. Tiny hiatal hernia. Unremarkable soft tissues. There is no acute fracture identified. Degenerative changes of the shoulders and spine. Moderate T8 compression deformity without retropulsion appears chronic. IMPRESSION: 1. Cardiomegaly with interstitial pulmonary edema and trace pleural effusions. Mild patchy groundglass opacities throughout the right lung favor asymmetric alveolar pulmonary edema. A superimposed pneumonia considered less likely. 2. Mediastinal and hilar lymphadenopathy is favored to be reactive. 3. Unremarkable CTA component of the exam. 4. Additional findings as above. ACT 112: Negative or not required by law. The above report was generated using voice recognition software. It may contain grammatical, syntax or spelling errors. Electronically signed by: lD Peralta M.D. 07/24/2022 8:18 AM PG Care Time/CCT Total # of Minutes Spent Total Time Spent with Patient: Total time spent is greater than 50% in coordination of care (as documented) at patient's floor/unit and/or counseling patient: Coding Level of Care Code 31708 Subseq Hosp Care Lvl 3 Diagnoses Hypoxemia R09.02 Paroxysmal atrial fibrillation I48.0 Depression F32.9 Hypertension I10 Hypertension type: essential hypertension Time Spent (min) 15 (1) Hypertension Hypertension type: essential hypertension Qualified Code(s): I10 - Essential (primary) hypertension
[2022-07-24] MEDS: cefTRIAXone SODIUM 2,000 MG in DEXTROSE 5% 50 ML IV SCH (08:53)
[2022-07-24] MEDS: dilTIAZem HCL 300 MG CAPCR PO SCH (08:53)
[2022-07-24] MEDS: PANTOprazole 40 MG TAB PO SCH (08:53)
[2022-07-24] MEDS: LOSARTAN POTASSIUM 50 MG TAB PO SCH (08:54)
[2022-07-24] MEDS: METOPROLOL SUCC 50MG EXT REL TAB PO SCH (08:54)
[2022-07-24] MEDS: guaiFENesin 600 MG TABCR PO SCH ×2 (08:55→20:32)
[2022-07-24] MEDS: APIXABAN 5 MG TABLET PO SCH ×2 (08:55→20:32)
[2022-07-24] MEDS: CYANOCOBALAMIN (B-12) 500 MCG TABLET PO SCH (08:56)
--- NOTE | 2022-07-24 09:10 | Electrocardiogram Report ---
Test Reason : Blood Pressure : / mmHG Vent. Rate : 098 BPM Atrial Rate : 098 BPM P-R Int : 206 ms QRS Dur : 086 ms QT Int : 344 ms P-R-T Axes : 068 050 040 degrees QTc Int : 439 ms Poor data quality, interpretation may be adversely affected Sinus rhythm with Premature ventricular complexes Poor R wave progression, consider anterior [place] vs. lead placement vs. LVH ST depression in Anterolateral leads Abnormal ECG When compared with ECG of 20-JUL-2022 08:19, Sinus rhythm has replaced Atrial fibrillation HR has decreased by 26 bpm Confirmed by Yohan Carcamo ([id number]) on 07/24/2022 9:09:49 AM Referred By: REFERRED SELF Confirmed By:Yohan Carcamo
--- NOTE | 2022-07-24 09:10 | Electrocardiogram Report ---
Test Reason : Blood Pressure : / mmHG Vent. Rate : 096 BPM Atrial Rate : 096 BPM P-R Int : 206 ms QRS Dur : 082 ms QT Int : 356 ms P-R-T Axes : 078 057 074 degrees QTc Int : 449 ms Poor data quality, interpretation may be adversely affected Normal sinus rhythm with occasional Premature ventricular complexes Nonspecific ST abnormality Anterolateral leads Abnormal ECG When compared with ECG of 24-JUL-2022 02:31, No significant change Confirmed by Yohan Carcamo ([id number]) on 07/24/2022 9:10:18 AM Referred By: REFERRED SELF Confirmed By:Yohan Carcamo
--- NOTE | 2022-07-24 09:11 | Electrocardiogram Report ---
Test Reason : Blood Pressure : / mmHG Vent. Rate : 094 BPM Atrial Rate : 093 BPM P-R Int : 000 ms QRS Dur : 066 ms QT Int : 362 ms P-R-T Axes : 000 061 082 degrees QTc Int : 452 ms Poor data quality, interpretation may be adversely affected Sinus rhythm Nonspecific ST abnormality Anterolateral leads Abnormal ECG When compared with ECG of 24-JUL-2022 02:37, Premature ventricular complexes no longer present Confirmed by Yohan Carcamo ([id number]) on 07/24/2022 9:10:55 AM Referred By: REFERRED SELF Confirmed By:Yohan Carcamo
--- NOTE | 2022-07-24 09:11 | Electrocardiogram Report ---
Test Reason : Blood Pressure : / mmHG Vent. Rate : 091 BPM Atrial Rate : 090 BPM P-R Int : 000 ms QRS Dur : 072 ms QT Int : 354 ms P-R-T Axes : 000 061 080 degrees QTc Int : 435 ms Poor data quality, interpretation may be adversely affected Sinus rhythm Nonspecific ST abnormality Anterolateral leads Abnormal ECG When compared with ECG of 24-JUL-2022 03:16, No significant change was found Confirmed by Yohan Carcamo ([id number]) on 07/24/2022 9:11:21 AM Referred By: REFERRED SELF Confirmed By:Yohan Carcamo
[2022-07-24 16:28] LABS: Influenza A virus by PCR Negative (Negative); Influenza B virus by PCR Negative (Negative)
[2022-07-25] MEDS ORDERED: AZITHROMYCIN 250 MG in DEXTROSE 5% 250 ML IV SCH (06:00)
[2022-07-25] MEDS: ACETAMINOPHEN 325 MG TAB PO PRN ×2 (06:19→10:21)
[2022-07-25] MEDS: guaiFENesin 600 MG TABCR PO SCH ×2 (06:20→09:24)
[2022-07-25 08:16] LABS: Hematocrit (blood only) 31.6 % (34.1-44.9); Mean Corpuscular Hemoglobin 32.2 pg (25.0-34.0); Mean Corpuscular Hgb Conc 34.8 g/dL (32.0-36.0); Mean Corpuscular Volume 92.4 fL (80.0-100.0); Mean Platelet Volume 12.5 fL (9.4-12.3); Platelet Count 176 K/uL (130-400); RDW Coefficient of Variation 11.8 % (11.5-14.5); RDW Standard Deviation 39.9 fL (36.4-46.3); Red Blood Count 3.42 M/uL (3.93-5.22)
[2022-07-25 08:42] LABS: BUN Creatinine Ratio 16.7 (10-20); Calcium 8.4 mg/dl (8.5-10.1); Creatinine Clr Calc Pharmacy 86.8 ml/min; Est GFR (African American) 102.6 ml/min; Est GFR (Non-African American) 88.5 ml/min; Potassium 3.7 mmol/L (3.5-5.1)
--- NOTE | 2022-07-25 08:57 | Hospitalist Progress Note ---
Date of Service July 25, 2022 Assessment & Plan (1) Hypoxemia: Plan: ?Infection vs pulmonary edema - patient with recent atrial fibrillation with RVR, increase in her Metoprolol. Currently NSR No infectious prodrome prior to wheezing -BNP mildly elevated at 255 -Procalcitonin was <0.05 -WBC elevated 15.6, now 12.6 -Influenza A and B and Covid negative -Continue supplemental O2 as needed -Ceftriaxone and Azithromycin for now for possible CAP -Currently down to 1 Liter O2 -Will assess a 2 step (2) Paroxysmal atrial fibrillation: Plan: Now in SR -Continue Metoprolol -Continue Eliquis -Continue Diltiazem (3) Depression: Plan: Chronic. Patient states she is feeling well and is less anxious than she was in the ER -Continue Buspirone 10mg po TID (4) Hypertension: Plan: -Continue Losartan -Continue Diltiazem -Continue Metoprolol -Monitor BP currently 134/68 (5) Constipation: Plan: - Add a dose of miralax 17gm and encourage up and out of bed Admission and Anticipated Discharge Date Admission Date: July 24, 2022 Subjective Patient is awake in bed and she states she is feeling much better today. She is currently down to 1 Liter of O2 and maintaining saturations in the mid 90s. She has no chest pain, SOB, edema or leg pain. She tells me she has not had a BM since admission. She has been getting up and out of bed. Review of Systems Constitutional: + chills, + fatigue and + weakness; no fever Eyes: no blind spots, no diplopia and no eye pain Ear, Nose, Mouth, Throat: + nasal congestion and + post nasal drip; no facial pain and no sinus pain/pressure Respiratory: as per Subjective / HPI; no cough, no chest congestion and no pain on inspiration Cardiovascular: as per Subjective / HPI; no chest pain, no palpitations, no syncope and no edema Gastrointestinal: + nausea; no vomiting, no dysphagia, no constipation and no diarrhea/loose stools Genitourinary: no dysuria, no difficulty urinating and no urinary hesitancy Musculoskeletal: hx of fibromyalgia and sometimes has muscle and joint pain Integumentary: no rash, no lesions, no wounds and no pruritus Neurologic: no unsteadiness, no falls and no syncope Psychiatric: no depression, no anxiety and no confusion Physical Exam Constitutional: WD/WN, vitals as above ENMT: external ear and nose normal, oropharynx normal Neck: trachea midline, no thyromegaly Respiratory: normal respiratory effort and able to speak in complete sentences; no respiratory distress and no cough Cardiovascular: RRR, no murmur, no edema Gastrointestinal (Abdomen): normal bowel sounds, soft, nontender, no hepatosplenomegaly Skin: no rashes, warm and dry Psychiatric: A+Ox3, euthymic affect Results & Data Results & Data ([facility]) Vital Signs (Past 12 Hours) Vital Signs Temp Pulse Resp BP Pulse Ox O2 Del Method O2 Flow Rate 07/25/22 08:17 36.6 C 83 16 125/75 93 Nasal Cannula 3 07/24/22 22:03 37.0 C 89 18 165/74 H 95 Nasal Cannula Laboratory Results Abnormal lab results 07/24/22 07/25/22 07/25/22 Range/Units 07:43 07:19 07:19 WBC 12.60 H (4.8-10.8) K/ul RBC 3.42 L (3.93-5.22) M/uL Hgb 11.0 L (12.0-16.0) g/dl Hct 31.6 L (34.1-44.9) % MPV 12.5 H (9.4-12.3) fL Sodium 133 L (136-145) mmol/L Glucose 121 H (70-99(Fasting)) mg/dl Calcium 8.4 L (8.5-10.1) mg/dl B-Natriuretic Peptide 255 H (0-100) pg/ml PG Care Time/CCT Total # of Minutes Spent Total Time Spent with Patient: Total time spent is greater than 50% in coordination of care (as documented) at patient's floor/unit and/or counseling patient: Coding Diagnoses Hypoxemia R09.02 Paroxysmal atrial fibrillation I48.0 Depression F32.9 Hypertension I10 Hypertension type: essential hypertension Constipation K59.00 (1) Hypertension Hypertension type: essential hypertension Qualified Code(s): I10 - Essential (primary) hypertension
[2022-07-25] MEDS: cefTRIAXone SODIUM 2,000 MG in DEXTROSE 5% 50 ML IV SCH (09:18)
[2022-07-25] MEDS: METOPROLOL SUCC 50MG EXT REL TAB PO SCH (09:25)
[2022-07-25] MEDS: PANTOprazole 40 MG TAB PO SCH (09:25)
[2022-07-25] MEDS: LOSARTAN POTASSIUM 50 MG TAB PO SCH (09:25)
[2022-07-25] MEDS: APIXABAN 5 MG TABLET PO SCH (09:25)
[2022-07-25] MEDS: dilTIAZem HCL 300 MG CAPCR PO SCH (09:25)
[2022-07-25] MEDS: CYANOCOBALAMIN (B-12) 500 MCG TABLET PO SCH (09:25)
[2022-07-25] MEDS ORDERED: POLYETHYLENE (MIRALAX) 17 GM PACK PO PRN (09:45)
--- NOTE | 2022-07-25 14:00 | Discharge Summary ---
Date of Service July 25, 2022 Admission HPI Per Admitting Provider Crystal Elkins is a 77yo female with history of PAF on Apixaban anticoagulation, Fibromyalgia, GERD HTN and Hyperthyroidism presenting with SOB and wheeze. Patient was seen in the ER on 07/20/22 with atrial fibrillation with RVR. She was treated with NSS, Lopressor 5mg and Metoprolol XL 25mg PO with improvement in her heart rate. She was seen by Cardiology on 07/21/22. Her Toprol XL was increased to 50mg po daily. This evening at 0100 she woke with acute wheezing and shortness of breath. She reported her HR and blood pressure were elevated. She feels lightheaded. Denies fever, chills, cough, fatigue,, URI symptoms preceding. No additional complaints In the ER she is hypertensive, tachycardic, saturations of 88% with ambulation Admission Exam Per Admitting Provider General: patient resting comfortably, NAD, anxious in appearance, AA&O x 4 Skin: warm, dry, intact, no rashes or lesions HEENT: NC/AT, PERRL, EOMI, anicteric sclera, conjunctiva without injection, external ear normal to inspection and nontender, nares patent, moist mucus membranes, dentition intact, no oropharyngeal lesions, neck supple, trachea midl ine, no LAD, no thyromegaly, no JVD Heart: +S1/S2, regular, tachycardic, no m/r/g Lungs: equal air entry bilaterally, no rales/rhonchi/wheezes Abd: +BS, soft, NT/ND, no masses/organomegaly/ascites Ext: warm, 2+ pulses in UE/LE bilaterally, no clubbing/cyanosis or edema Neuro: nonfocal, patient AA&O x 4, speech intact, no facial droop, moving all extremities on command with equal strength 5/5 Principal Diagnosis hypoxia pneumonia Discharge Exam Constitutional WD/WN, vitals as above ENMT external ear and nose normal, oropharynx normal Neck trachea midline, no thyromegaly Respiratory normal respiratory effort, lungs clear to auscultation Cardiovascular RRR, no murmur, no edema Gastrointestinal (Abdomen) normal bowel sounds, soft, nontender, no hepatosplenomegaly Skin no rashes, warm and dry Psychiatric A+Ox3, euthymic affect Discharge Data Allergies Allergy/AdvReac Type Severity Reaction Status Date / Time celecoxib Allergy Intermediate RASH Verified 07/24/22 02:44 levofloxacin Allergy Intermediate HIVES Verified 07/24/22 02:44 meperidine AdvReac Intermediate n/v Verified 07/24/22 02:44 Consultations 07/24/22 04:45 ED Decision to Admit Stat Ordered Studies 07/24/22 02:42 CT angio chest dissec wo/w con Urgent FINDINGS: CTA: Moderate cardiomegaly without pericardial effusion. Mild coronary artery calcifications. Atherosclerosis of the thoracic aorta with patency of the imaged great vessels. No thoracic aortic aneurysm, or dissection. No intramural or mediastinal hematoma. Unremarkable pulmonary artery. No pulmonary emboli are identified. CT CHEST: Unremarkable thyroid. Mild mediastinal and hilar adenopathy includes a 1.1 cm precarinal lymph node and and lymph nodes within the right hilum measuring up to 1.5 cm. Trace pleural effusions, right greater than left. There is no pneumothorax. Diffuse intralobular septal thickening with mild intermixed groundglass opacities within the right lung and subsegmental linear areas of consolidation. Bronchial wall thickening with mild bibasilar mucous plugging. Cortical thinning of the kidneys. Tiny hiatal hernia. Unremarkable soft tissues. There is no acute fracture identified. Degenerative changes of the shoulders and spine. Moderate T8 compression deformity without retropulsion appears chronic. IMPRESSION: 1. Cardiomegaly with interstitial pulmonary edema and trace pleural effusions. Mild patchy groundglass opacities throughout the right lung favor asymmetric alveolar pulmonary edema. A superimposed pneumonia considered less likely. 2. Mediastinal and hilar lymphadenopathy is favored to be reactive. 3. Unremarkable CTA component of the exam. 4. Additional findings as above. Hospital Course (1) Hypoxemia: ?Infection vs pulmonary edema - patient with recent atrial fibrillation with RVR, increase in her Metoprolol. Currently NSR No infectious prodrome prior to wheezing -BNP mildly elevated at 255 -Procalcitonin was <0.05 -WBC elevated 15.6, now 12.6 -Influenza A and B and Covid negative -Continue supplemental O2 as needed -was treated with IV Ceftriaxone and Azithromycin for possible CAP -Currently down to 1 Liter O2 -Will assess a 2 step and noted will need 2 Liters with exertion - Made arrangements with case management to get patient Oxygen delivered to the hospital for discharge (2) Paroxysmal atrial fibrillation: Now in SR -Continue Metoprolol -Continue Eliquis -Continue Diltiazem (3) Depression: Chronic. Patient states she is feeling well and is less anxious than she was in the ER -Continue Buspirone 10mg po TID (4) Hypertension: -Continue Losartan -Continue Diltiazem -Continue Metoprolol -Monitor BP currently 125/75 (5) Constipation: Added a dose of miralax 17gm today and encouraged up and OOB Plan D/C to home today with 2 L oxygen with exertion Total Time Total Time Spent Total Time Spent (In Minutes): 35 Discharge Plan Discharge Items Patient Disposition: Home - Self-Care Reason For Visit: PNEUMONIA, HYPOXIA Discharge Diagnosis: CAP, Hypoxia Condition on Discharge: Fair Activity: Resume your previous activity Lifting: Gradually increase as tolerated Driving/Machine Use: Resume 1 day after discharge Weightbearing: Full weightbearing Non-emergency contact: Primary Care Provider Call non-emergency contact if: you have any medication questions and your temperature is above 101.5 Follow-up/Referrals: Tyrese Morrell DO [Primary Care Provider] - 08/05/22 12:00 pm Diet: Heart Healthy Addtl Attending Provider Instructions: You were admitted with hypoxia, possibly secondary to pneumonia. Testing for Covid, Influenza A and B were all negative. You were treated with IV antibiotics during your hospital stay. You will be sent home on oral antibiotics to complete your course of treatment. You were placed on Oxygen to improve your levels. You completed a 2 step test that revealed you will need to continue 2 Liters with exertion. This may only be temporary. You should follow up with your primary care physician in 1-2 weeks and they can assess your oxygen needs further at that time. If malagon should have a fever, shortness of breath, trouble breathing or chest pain you should call your doctor or report to the nearest Emergency department. You will need to finish the course of antibiotics and will start those by mouth antibiotics tomorrow, Pending Studies at Discharge: No Stand-Alone Forms: My [facility] Medications and DC Order Prescriptions: Continued Eliquis 5 mg tablet 5 mg PO BID 30 Days Qty: 180 3RF omeprazole 40 mg capsule,delayed release(DR/EC) 40 mg PO QAM Qty: 90 3RF buspirone 10 mg tablet 10 mg PO TID PRN (Reason: anxiety) Qty: 90 2RF cholecalciferol (vitamin D3) 1,000 unit capsule 1,000 units PO DAILY Qty: 90 multivitamin [Daily Multi-Vitamin] Tablet 1 tab PO QAM mecobalamin (vitamin B12) 1,000 mcg tablet,disintegrating 1,000 mcg sublingual DAILY Rx Instructions: place tablet under tongue and allow to dissolve for at least30 secs before swallowing losartan 100 mg tablet 100 mg PO QAM Rx Instructions: for high blood pressure metoprolol succinate 25 mg tablet extended release 24 hr 50 mg PO DAILY No Action amiodarone 200 mg tablet See Rx Instructions .ROUTE .COMPLEX Qty: 74 0RF Rx Instructions: Take 2 tablets in the morning and 2 tablets in the evening for 7 days (07/31- 08/06). Then take 1 tablet in the morning and 1 tablet in the evening for the remainder of the month. Discharge Orders: Discharge Order (Routine); Ordered 07/25/22 Ordered By: Brigitte Brewer Admission Data Admit Date/Time: 07/24/22 04:54 Attending Provider: Venu Chiang Admit Provider: Caridad Sosa Primary Care Provider: Tyrese Morrell. Other Providers: Caridad Sosa Other Interventions: Discharge Summary Assessment (RN) Last Done: 07/25/22 15:32 Supervising Physician Co-Signing Physician Notes Patient seen and examined at bedside. During face to face encounter, obtained a physical examination and history of hospital stay. Discussed discharge plan of care with GEORGES Brewer and patient. I reviewed above note and agree with it. Patient treated with antibiotics for community acquired pneumonia Coding Level of Care Code D/C DAY MANAGEMENT >30 MINS Diagnoses Hypoxemia R09.02 Paroxysmal atrial fibrillation I48.0 Depression F32.9 Hypertension I10 Hypertension type: essential hypertension Constipation K59.00 Time Spent (min) 35
== END 2022-07-25 16:20 | disposition home or self-care (01) | DRG 195 ==
LOC: ED 02:21 → 3W 04:54 → SUATTDRO 04:54 → INTOOBSV 04:54 → 3W 05:18

== ENCOUNTER 2022-07-28 08:25 | Observation (INO) ==
--- NOTE | 2022-07-28 08:32 | Emergency Department Note ---
Impression & Plan Atrial fibrillation with RVR, Acute dehydration, Diarrhea, Acute dyspnea ED Provider Note NAME: CINDY LOUISE AGE: 77 SEX: F : 1945 ARRIVES VIA: Ambulance INFORMANT: Patient, ED PROVIDER(S): Twan Cortez MD Chief Complaint: Shortness of breath, diarrhea HPI: Patient presents with the above symptoms. The patient was recently discharged home on Wednesday after an inpatient hospitalization for pneumonia. The patient was taking her outpatient antibiotics but stopped them yesterday as the patient was having significant diarrhea total of 11 bowel movements in the last 24 to 48 hours which she describes as loose and watery. Patient does not complain of any abdominal pain. The patient has had upset stomach and nausea but no vomiting. Patient does not have any chest pains but does have shortness of breath with exertion. No PND orthopnea. No leg swelling or calf pain. No history of DVT PE. Patient does have a known history of A. fib but does take diltiazem as well as metoprolol and does follow with Dr. Soliz. The patient is anticoagulated on Eliquis. EMS arrival did note the patient was in A. fib with RVR and the patient did receive 500 cc of IV fluids. Heart rate did improve with IV fluids. No fevers or chills. Mild nonproductive cough. Patient is a non-smoker. Patient denies any additional exacerbating remitting factors. The patient did take her evening medications but not her medications this morning. Patient did not note any blood in the stool. ROS: See HPI for pertinent positives and negatives. A total of 10 systems were reviewed and otherwise negative. Past medical history: See below Surgical history: See below Social history: See below Physical Exam: GENERAL: NAD, wearing a mask, non-toxic. EYE EXAM: Normal conjunctiva. PERRL, no anisocoria and EOM's grossly intact w/o pain. NECK: Supple, no nuchal rigidity, no adenopathy, non-tender. No signs of me ningismus. FROM of the neck with good chin to chest and neck extension. No stridor. LUNGS: Clear to auscultation. Normal chest wall mechanics. HEART: Tachycardic and irregularly irregular, no MRG. ABDOMEN: Abdomen soft, non-tender, normo-active bowel sounds, no masses, no rebound or guarding. BACK: No CVA TTP. SKIN: No rashes and no bruising. UPPER EXTREMITIES: Upper extremities are grossly normal. LOWER EXTREMITIES: Grossly normal, no edema. NEURO EXAM: A&O x3, cranial nerves II-XII grossly intact, normal speech, moves all 4 extremities. Differential diagnoses: Infection, dehydration, metabolic abnormality, hypo/hyperglycemia, electrolyte disturbance, anemia, hypoxia, cardiac sources, intracerebral event, toxicologic, neurologic, as well as other pathologies. Course: Patient was seen and evaluated the bedside. Full history physical exam was performed. EKG interpreted by me A. fib with RVR, rate of 128, normal QRS and axis, no ST elevations. Imaging Studies: See Below Cardiac monitoring: An order was placed for continuous cardiac monitoring. The monitor shows a rate of 132 with tachycardic and irregularly irregular rhythm. MDM: Patient presented due to concern for weakness and shortness of breath with associated A. fib RVR. Patient was ordered sepsis protocols the patient was ordered 1500 of IV fluids. The patient also did have a one-time dose of Lopressor ordered. The patient is in A. fib with RVR. Do believe that this is likely primarily secondary to dehydration given the patient's significant watery bowel movements and her recent infection. C. difficile also added along with blood cultures lactate and chest x-ray. COVID swab also obtained. Patient did have mild improvement in her heart rate with IV fluids as well as Lopressor. Given the patient's persistent A. fib with RVR and concomitant diarrhea/dehydration I did feel that the patient would benefit from admission. He does have a normal white count H&H and platelet count kidney function is g rossly unremarkable with normal electrolytes. Troponin is not elevated. TSH is normal. Urinalysis with blood and skin cells but no obvious infection. COVID- negative. Patient's chest x-ray shows cardiomegaly with improvement in interstitial edema. I did speak to the on-call hospitalist Dr. Yap and the patient was admitted to the medicine service. Critical Care: I have personally spent 35 minutes of critical care time in direct management of this patient. This includes bedside care, interpretation of diagnostic studies, and testing, discussion with consultants, patient, and family members, and other require inpatient management activities. This 35 minutes is in excess of all separately billable procedures. Past Med/Surg History Medical History Anticoagulant long-term use Anxiety Atrial fibrillation on eliquis - follows with Dr. Soliz Fibromyalgia GERD (gastroesophageal reflux disease) History of compression fracture of spine thoracic History of depression History of diverticulitis History of hyperthyroidism History of wrist fracture Left Hypertension Osteoporosis Vertigo Vitamin D deficiency Surgical History H/O oral surgery H/O tubal ligation History of carpal tunnel surgery of left wrist 10-21-21 Dr Marin, [facility] History of hemorrhoidectomy History of open reduction and internal fixation (ORIF) procedure Lt femur Hx of appendectomy Hx of cholecystectomy S/P colon resection 2/2 diverticular disease S/P tonsillectomy Family History Mother Breast cancer Hypertension Father Prostate cancer Colorectal cancer Hypertension Other No family history of adverse response to anesthesia Denies family history of Ovarian cancer Diabetes Myocardial infarction Social History Smoking Status: Unknown if ever smoked Second Hand Exposure: No; Hx Alcohol Use: No Hx Substance Use: No Preferred Language: Armenian Communication Ability: Effective Visual Impairment: Limited Hearing Ability: Normal [employer] Required: No Beliefs That Will Affect Care: None marital status: Current Living Situation: Spouse current occupational status: retired How many Children do You have: 2 Feels Safe at Home: Yes Childhood Exposure to Second-Hand Smoke: Yes caffeine: Yes (coffee) during the past year weight has: remained stable Dental Care, Regularly: No Physical Activity Frequency: 3-4 Times per Week Seatbelt Use: always Sunscreen Use: No Do you think of yourself as: straight/heterosexual Gender Identity: Female Assistive Devices: Cane, Walker and Wheelchair Allergies Allergies Allergy/AdvReac Type Severity Reaction Status Date / Time celecoxib Allergy Intermediate RASH Verified 07/24/22 02:44 levofloxacin Allergy Intermediate HIVES Verified 07/24/22 02:44 meperidine AdvReac Intermediate n/v Verified 07/24/22 02:44 Home Meds Home Medications Medication Instructions Recorded Confirmed cholecalciferol (vitamin D3) 25 1,000 units PO DAILY #90 caps 05/15/19 07/28/22 mcg (1,000 unit) capsule multivitamin (Daily Multi-Vitamin 1 tab PO QAM 02/02/20 07/28/22 tablet) losartan 100 mg tablet 100 mg PO QAM 10/10/21 07/28/22 mecobalamin (vitamin B12) 1,000 1,000 mcg sublingual DAILY 03/25/22 07/28/22 mcg disintegrating tablet,sublingual metoprolol succinate 25 mg 50 mg PO DAILY 07/24/22 07/28/22 tablet,extended release 24 hr Previous Rx's Medication Instructions Recorded buspirone 10 mg tablet 10 mg PO TID PRN anxiety #90 tabs 01/09/21 apixaban 5 mg tablet (Eliquis) 5 mg PO BID 30 days #180 tabs 10/21/21 diltiazem HCl 300 mg 300 mg PO DAILY #90 caps 03/09/22 capsule,extended release 24 hr omeprazole 40 mg capsule,delayed 40 mg PO QAM #90 caps 06/10/22 release amoxicillin 500 mg-potassium 1 tab PO BID #10 tabs 07/25/22 clavulanate 125 mg tablet (Augmentin) Results & Data (ED) Vital Signs Vital Signs - 24 hr 07/28/22 08:46 07/28/22 08:52 07/28/22 09:04 Temperature 36.1 C L Temperature Source Oral Pulse Rate 135 H 131 H Pulse Rate [Apical] 140 H Pulse Rhythm [Apical] Regular Respiratory Rate 16 16 Respiratory Depth Blood Pressure 156/103 H 111/92 Blood Pressure [Left Arm] Blood Pressure Mean 120 Blood Pressure Mean [Left Arm] Pulse Oximetry 96 97 Oxygen Delivery Method Room Air Room Air Sepsis Recent Fever Within 48 Hours No Sepsis New/Unexplained Change in Mental Status No Sepsis Action Taken by Nursing No Action Required 07/28/22 09:46 07/28/22 09:00 07/28/22 09:48 Temperature Temperature Source Pulse Rate Pulse Rate [Apical] 136 H 133 H Pulse Rhythm [Apical] Respiratory Rate 16 16 Respiratory Depth Blood Pressure Blood Pressure [Left Arm] 145/76 H 111/92 145/76 H Blood Pressure Mean Blood Pressure Mean [Left Arm] 99 98 99 Pulse Oximetry 95 97 Oxygen Delivery Method Room Air Sepsis Recent Fever Within 48 Hours Sepsis New/Unexplained Change in Mental Status Sepsis Action Taken by Nursing 07/28/22 10:47 Temperature Temperature Source Pulse Rate Pulse Rate [Apical] 117 H Pulse Rhythm [Apical] Irregular Respiratory Rate 15 Respiratory Depth Normal Blood Pressure Blood Pressure [Left Arm] 130/78 Blood Pressure Mean Blood Pressure Mean [Left Arm] 95 Pulse Oximetry 95 Oxygen Delivery Method Room Air Sepsis Recent Fever Within 48 Hours Sepsis New/Unexplained Change in Mental Status Sepsis Action Taken by Alf Medications Current Medication List: was personally reviewed by me Laboratory Data Attestation: I reviewed the patient's lab results. Result diagrams: 07/28/22 10:04 07/28/22 10:04 Lab Results 07/28/22 07/28/22 07/28/22 Range/Units 10:04 10:04 10:04 WBC 7.63 (4.8-10.8) K/ul RBC 3.90 L (3.93-5.22) M/uL Hgb 12.7 (12.0-16.0) g/dl Hct 37.0 (34.1-44.9) % MCV 94.9 (80.0-100.0) fL MCH 32.6 (25.0-34.0) pg MCHC 34.3 (32.0-36.0) g/dL RDW Std Deviation 41.3 (36.4-46.3) fL RDW Coeff of Manju 11.9 (11.5-14.5) % Plt Count 218 (130-400) K/uL MPV 11.8 (9.4-12.3) fL Immature Gran % (Auto) 0.4 % Neut % (Auto) 73.6 % Lymph % (Auto) 15.2 % [place] % (Auto) 8.0 % Eos % (Auto) 2.0 % Baso % (Auto) 0.8 % Neut # (Auto) 5.62 (1.4-6.5) K/uL Lymph # (Auto) 1.16 L (1.2-3.4) K/uL [place] # (Auto) 0.61 (0.24-0.82) K/uL Eos # (Auto) 0.15 (0-0.50) K/uL Baso # (Auto) 0.06 (0-0.2) K/uL Immature Gran # (Auto) 0.03 H (0.00-0.02) K/uL Sodium 138 (136-145) mmol/L Potassium 3.7 (3.5-5.1) mmol/L Chloride 106 (98-107) mmol/L Carbon Dioxide 25 (21-32) mmol/L Anion Gap 7 (3-11) BUN 10 (6-23) mg/dl Creatinine 0.64 (0.6-1.2) mg/dl Est Cr Clr Drug Dosing 80.5 ml/min Est GFR ( Amer) 100.5 ml/min Est GFR (Non-Af Amer) 86.7 ml/min BUN/Creatinine Ratio 15.6 (10-20) Glucose 104 H (70-99(Fasting)) mg/dl Lactate (0.4-2.0) mmol/L Calcium 8.7 (8.5-10.1) mg/dl Phosphorus 2.9 (2.5-4.9) mg/dl Magnesium 1.9 (1.7-2.4) mg/dl Total Bilirubin 0.7 (0.2-1.0) mg/dl AST 13 (13-39) U/L ALT 12 (7-52) U/L Alkaline Phosphatase 47 (34-104) U/L Troponin I High Sens 11.6 (0-14) pg/ml Total Protein 7.0 (6.0-8.3) gm/dl Albumin 3.8 (3.4-5.0) gm/dl Globulin 3.2 (2.5-4.0) gm/dl Albumin/Globulin Ratio 1.2 (0.9-2) Procalcitonin (0-0.5) ng/ml TSH 2.415 (0.300-4.500) uIu/ml Urine Color Urine Appearance (Clear) Urine pH (4.5-7.5) Ur Specific [place] (1.000-1.030) Urine Protein (Negative) Urine Glucose (UA) (Negative) Urine Ketones (Negative) Urine Blood (Negative) Urine Nitrite (Negative) Urine Bilirubin (Negative) Urine Urobilinogen (Negative) Ur Leukocyte Esterase (Negative) Urine WBC (Auto) (0-5) /hpf Urine RBC (Auto) (0-4) /hpf U Hyaline Cast (Auto) (0-5) /lpf U Epithel Cells (Auto) (0-5) /lpf Urine Bacteria (Auto) (Negative) SARS-CoV-2, RNA, NAAT (NEGATIVE) 07/28/22 07/28/22 07/28/22 Range/Units 10:04 10:04 Unknown WBC (4.8-10.8) K/ul RBC (3.93-5.22) M/uL Hgb (12.0-16.0) g/dl Hct (34.1-44.9) % MCV (80.0-100.0) fL MCH (25.0-34.0) pg MCHC (32.0-36.0) g/dL RDW Std Deviation (36.4-46.3) fL RDW Coeff of Manju (11.5-14.5) % Plt Count (130-400) K/uL MPV (9.4-12.3) fL Immature Gran % (Auto) % Neut % (Auto) % Lymph % (Auto) % [place] % (Auto) % Eos % (Auto) % Baso % (Auto) % Neut # (Auto) (1.4-6.5) K/uL Lymph # (Auto) (1.2-3.4) K/uL [place] # (Auto) (0.24-0.82) K/uL Eos # (Auto) (0-0.50) K/uL Baso # (Auto) (0-0.2) K/uL Immature Gran # (Auto) (0.00-0.02) K/uL Sodium (136-145) mmol/L Potassium (3.5-5.1) mmol/L Chloride (98-107) mmol/L Carbon Dioxide (21-32) mmol/L Anion Gap (3-11) BUN (6-23) mg/dl Creatinine (0.6-1.2) mg/dl Est Cr Clr Drug Dosing ml/min Est GFR ( Amer) ml/min Est GFR (Non-Af Amer) ml/min BUN/Creatinine Ratio (10-20) Glucose (70-99(Fasting)) mg/dl Lactate 1.0 (0.4-2.0) mmol/L Calcium (8.5-10.1) mg/dl Phosphorus (2.5-4.9) mg/dl Magnesium (1.7-2.4) mg/dl Total Bilirubin (0.2-1.0) mg/dl AST (13-39) U/L ALT (7-52) U/L Alkaline Phosphatase (34-104) U/L Troponin I High Sens (0-14) pg/ml Total Protein (6.0-8.3) gm/dl Albumin (3.4-5.0) gm/dl Globulin (2.5-4.0) gm/dl Albumin/Globulin Ratio (0.9-2) Procalcitonin < 0.05 (0-0.5) ng/ml TSH (0.300-4.500) uIu/ml Urine Color Urine Appearance (Clear) Urine pH (4.5-7.5) Ur Specific [place] (1.000-1.030) Urine Protein (Negative) Urine Glucose (UA) (Negative) Urine Ketones (Negative) Urine Blood (Negative) Urine Nitrite (Negative) Urine Bilirubin (Negative) Urine Urobilinogen (Negative) Ur Leukocyte Esterase (Negative) Urine WBC (Auto) (0-5) /hpf Urine RBC (Auto) (0-4) /hpf U Hyaline Cast (Auto) (0-5) /lpf U Epithel Cells (Auto) (0-5) /lpf Urine Bacteria (Auto) (Negative) SARS-CoV-2, RNA, NAAT NEGATIVE (NEGATIVE) 07/28/22 Range/Units Unknown WBC (4.8-10.8) K/ul RBC (3.93-5.22) M/uL Hgb (12.0-16.0) g/dl Hct (34.1-44.9) % MCV (80.0-100.0) fL MCH (25.0-34.0) pg MCHC (32.0-36.0) g/dL RDW Std Deviation (36.4-46.3) fL RDW Coeff of Manju (11.5-14.5) % Plt Count (130-400) K/uL MPV (9.4-12.3) fL Immature Gran % (Auto) % Neut % (Auto) % Lymph % (Auto) % [place] % (Auto) % Eos % (Auto) % Baso % (Auto) % Neut # (Auto) (1.4-6.5) K/uL Lymph # (Auto) (1.2-3.4) K/uL [place] # (Auto) (0.24-0.82) K/uL Eos # (Auto) (0-0.50) K/uL Baso # (Auto) (0-0.2) K/uL Immature Gran # (Auto) (0.00-0.02) K/uL Sodium (136-145) mmol/L Potassium (3.5-5.1) mmol/L Chloride (98-107) mmol/L Carbon Dioxide (21-32) mmol/L Anion Gap (3-11) BUN (6-23) mg/dl Creatinine (0.6-1.2) mg/dl Est Cr Clr Drug Dosing ml/min Est GFR ( Amer) ml/min Est GFR (Non-Af Amer) ml/min BUN/Creatinine Ratio (10-20) Glucose (70-99(Fasting)) mg/dl Lactate (0.4-2.0) mmol/L Calcium (8.5-10.1) mg/dl Phosphorus (2.5-4.9) mg/dl Magnesium (1.7-2.4) mg/dl Total Bilirubin (0.2-1.0) mg/dl AST (13-39) U/L ALT (7-52) U/L Alkaline Phosphatase (34-104) U/L Troponin I High Sens (0-14) pg/ml Total Protein (6.0-8.3) gm/dl Albumin (3.4-5.0) gm/dl Globulin (2.5-4.0) gm/dl Albumin/Globulin Ratio (0.9-2) Procalcitonin (0-0.5) ng/ml TSH (0.300-4.500) uIu/ml Urine Color Yellow Urine Appearance Clear (Clear) Urine pH 7.0 (4.5-7.5) Ur Specific [place] 1.009 (1.000-1.030) Urine Protein Negative (Negative) Urine Glucose (UA) Negative (Negative) Urine Ketones 1+ H (Negative) Urine Blood 1+ H (Negative) Urine Nitrite Negative (Negative) Urine Bilirubin Negative (Negative) Urine Urobilinogen Negative (Negative) Ur Leukocyte Esterase Negative (Negative) Urine WBC (Auto) 1-5 (0-5) /hpf Urine RBC (Auto) 0-4 (0-4) /hpf U Hyaline Cast (Auto) 1-5 (0-5) /lpf U Epithel Cells (Auto) >30 H (0-5) /lpf Urine Bacteria (Auto) Negative (Negative) SARS-CoV-2, RNA, NAAT (NEGATIVE) Administered Medications Discontinued Medications Apixaban (Apixaban 5 Mg Tablet) 5 mg PO ONE STA Stop: 07/28/22 11:30 Last Admin: 07/28/22 12:15 Dose: 5 mg Documented By: FELIX Diltiazem HCl (Diltiazem Hcl 300 Mg Capcr) 300 mg PO ONE STA Stop: 07/28/22 11:23 Last Admin: 07/28/22 12:14 Dose: 300 mg Documented By: FELIX Sodium Chloride (Nss 1000ml) 1,000 mls @ 999 mls/hr IV .Q1H1M BRANDYN Stop: 07/28/22 09:45 Last Infusion: 07/28/22 13:12 Dose: 0 mls/hr Documented By: Admin: 07/28/22 09:04 Dose: 999 mls/hr Documented By: FELIX Sodium Chloride (Nss) 500 mls @ 999 mls/hr IV .Q31M BRANDYN Stop: 07/28/22 09:15 Last Infusion: 07/28/22 09:41 Dose: 0 mls/hr Documented By: Admin: 07/28/22 09:06 Dose: 999 mls/hr Documented By: FELIX Magnesium Sulfate/Dextrose (Magnesium Sulfate / D5w) 1 gm in 100 mls @ 100 mls/hr IV NOW STA Stop: 07/28/22 12:15 Last Infusion: 07/28/22 13:12 Dose: 0 mls/hr Documented By: Admin: 07/28/22 11:45 Dose: 100 mls/hr Documented By: FELIX Metoprolol Succinate (Metoprolol Succ 50mg Ext Rel Tab) 50 mg PO NOW STA Stop: 07/28/22 11:23 Last Admin: 07/28/22 12:15 Dose: 50 mg Documented By: Admin: 07/28/22 12:15 Dose: 50 mg Documented By: FELIX Metoprolol Tartrate (Metoprolol Tartrate 1 Mg/Ml Vial) 5 mg IV NOW STA Stop: 07/28/22 08:45 Last Admin: 07/28/22 09:04 Dose: 5 mg Documented By: FELIX Metoprolol Tartrate (Metoprolol Tartrate 1 Mg/Ml Vial) 5 mg IV NOW STA Stop: 07/28/22 11:23 Last Admin: 07/28/22 11:45 Dose: 5 mg Documented By: FELIX Potassium Chloride (Potassium Chloride Crtab 20 Meq Tabcr) 20 meq PO NOW STA Stop: 07/28/22 11:17 Last Admin: 07/28/22 11:45 Dose: 20 meq Documented By: KV Imaging Data Radiologist's Impression: Chest X-Ray 07/28/22 08:44 XR chest 1V portable HISTORY: weakness COMPARISON: Chest 07/24/2022. FINDINGS: No pneumothorax. No pleural effusions. The heart is mildly enlarged. Mild interstitial pulmonary edema has improved. No new focal lung conso lidations. Suspect mild emphysema. IMPRESSION: Cardiomegaly with improvement in the mild interstitial pulmonary edema. ACT 112: Negative or not required by law. Electronically signed by: Immanuel Pope M.D. 07/28/2022 10:46 AM Discharge Plan Visit Data Chief Complaint: Illness ED Provider: Twan Cortez Discharge Problem: Atrial fibrillation with RVR, Acute dehydration, Diarrhea, Acute dyspnea Patient Disposition: Admitted As Inpatient Forms Stand Alone Forms: [facility] Prescriptions Prescriptions: No Action Eliquis 5 mg tablet 5 mg PO BID 30 Days Qty: 180 3RF omeprazole 40 mg capsule,delayed release(DR/EC) 40 mg PO QAM Qty: 90 3RF buspirone 10 mg tablet 10 mg PO TID PRN (Reason: anxiety) Qty: 90 2RF cholecalciferol (vitamin D3) 1,000 unit capsule 1,000 units PO DAILY Qty: 90 multivitamin [Daily Multi-Vitamin] Tablet 1 tab PO QAM mecobalamin (vitamin B12) 1,000 mcg tablet,disintegrating 1,000 mcg sublingual DAILY Rx Instructions: place tablet under tongue and allow to dissolve for at least30 secs before swallowing diltiazem HCl 300 mg capsule,extended release 24hr 300 mg PO DAILY Qty: 90 3RF losartan 100 mg tablet 100 mg PO QAM Rx Instructions: for high blood pressure metoprolol succinate 25 mg tablet extended release 24 hr 50 mg PO DAILY amoxicillin-pot clavulanate [Augmentin] 500-125 mg tablet 1 tab PO BID Qty: 10 0RF Rx Instructions: start one pill 2 times per day starting on 07/26/22 Referrals Referrals: Tyrese Morrell DO [Primary Care Provider] -
[2022-07-28] MEDS ORDERED: METOPROLOL TARTRATE 1 MG/ML VIAL IV STA ×2 (08:44→11:22)
[2022-07-28] MEDS ORDERED: SODIUM CHLORIDE 0.9% 1000ML 1,000 ML IV SCH (08:45)
[2022-07-28] MEDS ORDERED: SODIUM CHLORIDE 0.9% 500 ML IV SCH (08:45)
[2022-07-28 09:25] LABS: Appearance Urine Clear (Clear); Bacteria Urine Automated Negative (Negative); Bilirubin Urine Negative (Negative); Blood Urine 1+ (Negative); Color Urine Yellow; Epithelial Cell Urine Auto >30 /lpf (0-5); Glucose Urine UA Negative (Negative); Ketones Urine 1+ (Negative); Leukocyte Esterase Urine Negative (Negative); Nitrite Urine Negative (Negative); Protein Urine Negative (Negative); RBC Urine Automated 0-4 /hpf (0-4); Specific Gravity Urine 1.009 (1.000-1.030); Urobilinogen Urine Negative (Negative)
[2022-07-28 10:34] LABS: Basophils # (auto) 0.06 K/uL (0-0.2); Basophils % (auto) 0.8 %; Eosinophils # (auto) 0.15 K/uL (0-0.50); Hemoglobin 12.7 g/dl (12.0-16.0); Immature Granulocytes # (auto) 0.03 K/uL (0.00-0.02); Immature Granulocytes % (auto) 0.4 %; Lymphocytes # (auto) 1.16 K/uL (1.2-3.4); Lymphocytes % (auto) 15.2 %; Mean Corpuscular Hemoglobin 32.6 pg (25.0-34.0); Mean Corpuscular Hgb Conc 34.3 g/dL (32.0-36.0); Mean Corpuscular Volume 94.9 fL (80.0-100.0); Mean Platelet Volume 11.8 fL (9.4-12.3); Monocytes # (auto) 0.61 K/uL (0.24-0.82); Neutrophils # (auto) 5.62 K/uL (1.4-6.5); Neutrophils % (auto) 73.6 %; Platelet Count 218 K/uL (130-400); RDW Coefficient of Variation 11.9 % (11.5-14.5); RDW Standard Deviation 41.3 fL (36.4-46.3); White Blood Count 7.63 K/ul (4.8-10.8)
--- NOTE | 2022-07-28 10:47 | XRay Report ---
XR chest 1V portable HISTORY: weakness COMPARISON: Chest 07/24/2022. FINDINGS: No pneumothorax. No pleural effusions. The heart is mildly enlarged. Mild interstitial pulm onary edema has improved. No new focal lung consolidations. Suspect mild emphysema. IMPRESSION: Cardiomegaly with improvement in the mild interstitial pulmonary edema. ACT 112: Negative or not required by law. Electronically signed by: Immanuel Pope M.D. 07/28/2022 10:46 AM
[2022-07-28 10:50] LABS: Albumin Globulin Ratio 1.2 (0.9-2); Albumin Level 3.8 gm/dl (3.4-5.0); BUN Creatinine Ratio 15.6 (10-20); Bilirubin,Total 0.7 mg/dl (0.2-1.0); Calcium 8.7 mg/dl (8.5-10.1); Creatinine Clr Calc Pharmacy 80.5 ml/min; Est GFR (African American) 100.5 ml/min; Est GFR (Non-African American) 86.7 ml/min; Globulin 3.2 gm/dl (2.5-4.0); Magnesium 1.9 mg/dl (1.7-2.4); Phosphorus 2.9 mg/dl (2.5-4.9); Potassium 3.7 mmol/L (3.5-5.1)
[2022-07-28 10:53] LABS: Troponin I High Sensitivity 11.6 pg/ml (0-14)
[2022-07-28] MEDS ORDERED: POTASSIUM CHLORIDE CRTAB 20 MEQ TABCR PO STA (11:16)
[2022-07-28] MEDS ORDERED: MAGNESIUM SULFATE / D5W 1 GM/100 ML BAG IV STA (11:16)
--- NOTE | 2022-07-28 11:19 | History & Physical Report ---
Date of Service July 28, 2022 Assessment & Plan (1) Atrial fibrillation with RVR: Plan: Patient has paroxysmal atrial fibrillation. I suspect she feels much better when she is in normal sinus rhythm. Current episode suspect secondary to antibiotic associated diarrhea however her prior episode starting on July 20 has no precipitating event and I wonder if she would benefit more from a rhythm control strategy - discussed with Dr. Cadet. Pneumonia diagnosed on prior hospitalization and now with antibiotic associated diarrhea we will therefore discontinue antibiotics given improvement in CXR findings and WBC. Will give extra dose of metoprolol 5 mg IV now along with her usual morning medications of metoprolol succinate 50 mg p.o. and diltiazem ER 300 mg We will hold her losartan due to her currently normal blood pressure and potentially starting antiarrhythmics Continue Eliquis for stroke prophylaxis (2) Community acquired pneumonia: Plan: Recent diagnosis of this with elevated WBC but questionable changes on CT chest. Will hold further antibiotics due to antibiotic associated diarrhea. Current CXR and lung auscultation appers clear Doubtful contributing significantly towards current symptoms or atrial fibrillation (3) Diarrhea: Plan: Antibiotic-associated Start probiotics (4) Hypertension: Plan: Hold losartan to allow for more rate/rhythm control Plan VTE Prophylaxis - Eliquis Diet - heart healthy Disposition - observational status on PCU Admission and Anticipated Discharge Date Admission Date: July 28, 2022 History of Present Illness Chief Complaint: Dizziness, fatigue, shortness of breath Primary Care Provider: Tyrese Morrell DO Dante Elkins is a 77-year-old female who presents to the ER with elevated heart rate, dizziness, fatigue and shortness of breath. Symptoms appear to be well correlated when she goes into atrial fibrillation most recently on July 20 when she initially went to he ER and followed up with Howie Pham PA-C the following day with the expectation she would spontaneously convert with doubling her dose of metoprolol. No precipitating event of this and TSH WNL. No alcohol use. Suspect she was in more rapid atrial fibrillation prior to her eventual hospitalization on July 24 - 2021 when she was diagnosed with a pneumonia with elevated WBC although this may have just been pulmonary edema. All EKGs during this admission show her in normal sinus rhythm and her shortness of breath improved. She developed diarrhea (although frequency only once a day) after she went home and antibiotics were converted to oral Augmentin. She has been measuring her heart rate at home in the 150s. This morning she felt woozy, dizzy with generalized weakness therefore decided to return to the ER. Allergies Allergy/AdvReac Type Severity Reaction Status Date / Time celecoxib Allergy Intermediate RASH Verified 07/24/22 02:44 levofloxacin Allergy Intermediate HIVES Verified 07/24/22 02:44 meperidine AdvReac Intermediate n/v Verified 07/24/22 02:44 Home Medications Medication Instructions Recorded Confirmed Type cholecalciferol (vitamin D3) 25 1,000 units PO DAILY #90 caps 05/15/19 07/28/22 History mcg (1,000 unit) capsule multivitamin (Daily Multi-Vitamin 1 tab PO QAM 02/02/20 07/28/22 History tablet) buspirone 10 mg tablet 10 mg PO TID PRN anxiety #90 tabs 01/09/21 07/28/22 Rx losartan 100 mg tablet 100 mg PO QAM 10/10/21 07/28/22 History apixaban 5 mg tablet (Eliquis) 5 mg PO BID 30 days #180 tabs 10/21/21 07/28/22 Rx diltiazem HCl 300 mg 300 mg PO DAILY #90 caps 03/09/22 07/28/22 Rx capsule,extended release 24 hr mecobalamin (vitamin B12) 1,000 1,000 mcg sublingual DAILY 03/25/22 07/28/22 History mcg disintegrating tablet,sublingual omeprazole 40 mg capsule,delayed 40 mg PO QAM #90 caps 06/10/22 07/28/22 Rx release metoprolol succinate 25 mg 50 mg PO DAILY 07/24/22 07/28/22 History tablet,extended release 24 hr amoxicillin 500 mg-potassium 1 tab PO BID #10 tabs 07/25/22 07/28/22 Rx clavulanate 125 mg tablet (Augmentin) Past Med/Surg History Medical History Anticoagulant long-term use Anxiety Atrial fibrillation on eliquis - follows with Dr. Soliz Fibromyalgia GERD (gastroesophageal reflux disease) History of compression fracture of spine thoracic History of depression History of diverticulitis History of hyperthyroidism History of wrist fracture Left Hypertension Osteoporosis Vertigo Vitamin D deficiency Surgical History H/O oral surgery H/O tubal ligation History of carpal tunnel surgery of left wrist 10-21-21 Dr Marin, [facility] History of hemorrhoidectomy History of open reduction and internal fixation (ORIF) procedure Lt femur Hx of appendectomy Hx of cholecystectomy S/P colon resection 2/2 diverticular disease S/P tonsillectomy Family History Mother Breast cancer Hypertension Father Prostate cancer Colorectal cancer Hypertension Other No family history of adverse response to anesthesia Denies family history of Ovarian cancer Diabetes Myocardial infarction Social History Smoking Status: Never smoker Second Hand Exposure: No; Hx Alcohol Use: No Hx Substance Use: No Preferred Language: Occitan Communication Ability: Effective Visual Impairment: Limited Hearing Ability: Normal Credit Relationship Manager Required: No Beliefs That Will Affect Care: None marital status: Current Living Situation: Spouse current occupational status: retired How many Children do You have: 2 Feels Safe at Home: Yes Childhood Exposure to Second-Hand Smoke: Yes caffeine: Yes (coffee) during the past year weight has: remained stable Dental Care, Regularly: No Physical Activity Frequency: 3-4 Times per Week Seatbelt Use: always Sunscreen Use: No Do you think of yourself as: straight/heterosexual Gender Identity: Female Assistive Devices: Denture - Upper and Denture - Lower Review of Systems Review of Systems: All systems reviewed & are unremarkable except as noted in Subjective Physical Exam Constitutional: WD/WN, vitals as above Eyes: + anicteric sclerae; normal pupil size Cardiovascular: Rate/Rhythm: + tachycardic and + irregularly irregular Heart Sounds: no murmur Gastrointestinal (Abdomen): normal bowel sounds, soft, nontender, no hepatosplenomegaly Musculoskeletal: no cyanosis or clubbing, extremities motor strength 5/5 Skin: no rashes, warm and dry Neurologic: moves all extremities and awake; not confused Psychiatric: A+Ox3, euthymic affect Results & Data Results & Data ([facility]) Vital Signs (Past 12 Hours) Vital Signs Temp Pulse Pulse Resp BP BP Pulse Ox 07/28/22 10:47 117 H 15 130/78 95 07/28/22 09:48 145/76 H 07/28/22 09:00 133 H 16 111/92 97 07/28/22 09:46 136 H 16 145/76 H 95 07/28/22 09:04 131 H 111/92 07/28/22 08:52 140 H 16 97 07/28/22 08:46 36.1 C L 135 H 16 156/103 H 96 O2 Del Method 07/28/22 10:47 Room Air 07/28/22 09:48 07/28/22 09:00 07/28/22 09:46 Room Air 07/28/22 09:04 07/28/22 08:52 Room Air 07/28/22 08:46 Room Air Laboratory Results Abnormal lab results 07/28/22 07/28/22 07/28/22 Range/Units 10:04 10:04 Unknown RBC 3.90 L (3.93-5.22) M/uL Lymph # (Auto) 1.16 L (1.2-3.4) K/uL Immature Gran # (Auto) 0.03 H (0.00-0.02) K/uL Glucose 104 H (70-99(Fasting)) mg/dl Urine Ketones 1+ H (Negative) Urine Blood 1+ H (Negative) U Epithel Cells (Auto) >30 H (0-5) /lpf Diagnostic Findings XR chest 1V portable HISTORY: weakness COMPARISON: Chest 07/24/2022. FINDINGS: No pneumothorax. No pleural effusions. The heart is mildly enlarged. Mild interstitial pulmonary edema has improved. No new focal lung consolidations. Suspect mild emphysema. IMPRESSION: Cardiomegaly with improvement in the mild interstitial pulmonary edema. Medications Administered ER medications given: Normal saline 1L bolus Normal saline 500 mL bolus Metoprolol 5 mg IV ECG Indication: SOB/dyspnea and tachycardia Rate (beats per minute): 128 Rhythm: atrial fibrillation Findings: no acute ischemic change Comparison ECG Date: from (July 24, 2022) Change: the following changes noted (A. fib is new) Code Status & VTE Plan Code Status Full PG Care Time/CCT Total # of Minutes Spent Total Time Spent with Patient: Total time spent is greater than 50% in coordination of care (as documented) at patient's floor/unit and/or counseling patient: Coding Level of Care Code INT OBSERVATION CARE 70M LVL 3 Diagnoses Atrial fibrillation with RVR I48.91 Community acquired pneumonia J18.9 Laterality: right Lung location: unspecified part of lung Diarrhea R19.7 Hypertension I10 Hypertension type: essential hypertension (1) Community acquired pneumonia Laterality: right Lung location: unspecified part of lung Qualified Code(s): J18.9 - Pneumonia, unspecified organism (2) Hypertension Hypertension type: essential hypertension Qualified Code(s): I10 - Essential (primary) hypertension
[2022-07-28] MEDS ORDERED: dilTIAZem HCL 300 MG CAPCR PO STA (11:22)
[2022-07-28] MEDS ORDERED: APIXABAN 5 MG TABLET PO STA (11:29)
[2022-07-28] MEDS: METOPROLOL SUCC 50MG EXT REL TAB PO STA (12:15)
--- NOTE | 2022-07-28 13:33 | Cardiology Consultation ---
Date of Consultation July 28, 2022 Assessment & Plan (1) Paroxysmal atrial fibrillation: (2) Anticoagulant long-term use: Plan ASSESSMENT/PLAN: 1. Paroxysmal atrial fibrillation: Quite symptomatic. Not a diagnosis. Elevated heart rates while in atrial fibrillation. Would recommend antiarrhythmic approach. We discussed treatment strategies but is not tolerating a rate control strategy and appears to be having more frequent episodes of also considered and discussed direct current cardioversion today. She declines. Also discussed potential for ablation but ultimately recommended anti rhythmic therapy. We discussed antiarrhythmic options and potential adverse reactions. She would like amiodarone as it was also discussed in the outpatient setting. Start amiodarone 400 mg p.o. b.i.d. for 10 days and then 200 mg twice daily, which can later be reduced to once daily as per her primary nut chopper. Monitor TSH and transaminase levels. If becomes symptomatic while in bed, could give IV amiodarone. Check echo. Continue anticoagulation for stroke risk reduction. Based on her history, she is likely to spontaneously cardiovert and hopefully amiodarone can help maintain sinus rhythm. 2. Anticoagulation therapy: Continue anticoagulation therapy for stroke risk reduction. Monitor renal function and CBC periodically while on Eliquis. 3. Disposition: She would like to be admitted at least until she converts to sinus rhythm. Plan of care communicated with Dr. Yap of the primary hospitalist service. Dr. Soliz, her primary nut chopper, also notified of her presentation and treatment plan. Highly complex medical issues for which electrical cardioversion was considered and discussed. Thank you for allowing me to participate in the care of your patient. Please call for any other questions or concerns. Sincerely, French Cadet M.D. History of Present Illness Reason for Consultation: Atrial fibrillation Requesting Physician: Jad Yap Attending Physician: Jad Yap History of Present Illness Mrs. Elkins is a very pleasant 77-year-old female with a history significant for paroxysmal atrial fibrillation, fibromyalgia, and hypertension. Her primary nut chopper is Dr. Soliz. She has no paroxysmal atrial fibrillation and tends not to tolerate the arrhythmia. She feels jittery and can have dyspnea with exertion when it occurred with occasional pressure in her chest. She presented today with the s jennifer symptoms. She noted that her heart rate was elevated yesterday but today felt woozy and more jittery, prompting EMS and ER visit. On presentation, she was noted to be in AFib with RVR with heart rate of128 on initial ECG. She had just been hospitalized on 07/24/2022, and discharged a day later with a principal diagnosis of pneumonia and hypoxia. She was in sinus rhythm on presentation and on discharge. She was seen in the emergency department on 07/20/2022 and noted to be in AFib at that time. She remained in AFib at cardiology office visit on 07/21/2022. She was continued on beta-sara and diltiazem but anti arrhythmic therapy was discussed, specifically amiodarone. While in bed in the emergency department, she felt better. She had no ongoing chest discomfort denied shortness of breath. She had dyspnea with exertion prior to presentation with her elevated heart rate while in atrial fibrillation. She did not take her morning medication, by her medications were given to her in the emergency department. She recently stopped taking on med and given diarrhea. She estimates approximately 10 bouts of diarrhea 2 days ago but only 1 yesterday and no bowel movement today. She denies melena, hematochezia, hematuria, or other bleeding. She denies syncope, edema, fever, nausea, vomiting. Review of systems: As above. Review of systems otherwise negative/unremarkable. Family history: No known premature CAD. Social history: She denies smoking, alcohol, or drug abuse. She lives at home with her . She has 2 sons. Her was at her bedside in the emergency department. Allergies Allergy/AdvReac Type Severity Reaction Status Date / Time celecoxib Allergy Intermediate RASH Verified 07/24/22 02:44 levofloxacin Allergy Intermediate HIVES Verified 07/24/22 02:44 meperidine AdvReac Intermediate n/v Verified 07/24/22 02:44 Home Medications Medication Instructions Recorded Confirmed Type cholecalciferol (vitamin D3) 25 1,000 units PO DAILY #90 caps 05/15/19 07/28/22 History mcg (1,000 unit) capsule multivitamin (Daily Multi-Vitamin 1 tab PO QAM 02/02/20 07/28/22 History tablet) buspirone 10 mg tablet 10 mg PO TID PRN anxiety #90 tabs 01/09/21 07/28/22 Rx losartan 100 mg tablet 100 mg PO QAM 10/10/21 07/28/22 History apixaban 5 mg tablet (Eliquis) 5 mg PO BID 30 days #180 tabs 10/21/21 07/28/22 Rx diltiazem HCl 300 mg 300 mg PO DAILY #90 caps 03/09/22 07/28/22 Rx capsule,extended release 24 hr mecobalamin (vitamin B12) 1,000 1,000 mcg sublingual DAILY 03/25/22 07/28/22 History mcg disintegrating tablet,sublingual omeprazole 40 mg capsule,delayed 40 mg PO QAM #90 caps 06/10/22 07/28/22 Rx release metoprolol succinate 25 mg 50 mg PO DAILY 07/24/22 07/28/22 History tablet,extended release 24 hr amoxicillin 500 mg-potassium 1 tab PO BID #10 tabs 07/25/22 07/28/22 Rx clavulanate 125 mg tablet (Augmentin) Patient History Medical History (Updated 07/28/22 @ 13:29 by Andre Cadet MD) Anticoagulant long-term use Anxiety Atrial fibrillation on eliquis - follows with Dr. Soliz Fibromyalgia GERD (gastroesophageal reflux disease) History of compression fracture of spine thoracic History of depression History of diverticulitis History of hyperthyroidism History of wrist fracture Left Hypertension Osteoporosis Vertigo Vitamin D deficiency Surgical History H/O oral surgery H/O tubal ligation History of carpal tunnel surgery of left wrist 10-21-21 Dr Marin, [facility] History of hemorrhoidectomy History of open reduction and internal fixation (ORIF) procedure Lt femur Hx of appendectomy Hx of cholecystectomy S/P colon resection 2/2 diverticular disease S/P tonsillectomy Family History Mother Breast cancer Hypertension Father Prostate cancer Colorectal cancer Hypertension Other No family history of adverse response to anesthesia Denies family history of Ovarian cancer Diabetes Myocardial infarction Social History Smoking Status: Unknown if ever smoked Second Hand Exposure: No; Hx Alcohol Use: No Hx Substance Use: No Preferred Language: Yi Communication Ability: Effective Visual Impairment: Limited Hearing Ability: Normal Seasoner Hand Required: No Beliefs That Will Affect Care: None marital status: Current Living Situation: Spouse current occupational status: retired How many Children do You have: 2 Feels Safe at Home: Yes Childhood Exposure to Second-Hand Smoke: Yes caffeine: Yes (coffee) during the past year weight has: remained stable Dental Care, Regularly: No Physical Activity Frequency: 3-4 Times per Week Seatbelt Use: always Sunscreen Use: No Do you think of yourself as: straight/heterosexual Gender Identity: Female Assistive Devices: Cane, Walker and Wheelchair Physical Exam Physical Exam: Gen.: No acute distress. Alert and oriented. HEENT: Anicteric sclera. Neck: No JVD. No bruits. Normal carotid upstrokes bilaterally. Cardiac: PMI was nonpalpable. No ventricular heave. Irregularly irregular. N ormal S1-S2. No murmurs, rubs, or gallops. Pulmonary: Clear to auscultation bilaterally without wheezes, rales, or rhonchi. Abdomen: Soft, nontender, nondistended, with normoactive bowel sounds. No bruits noted. Extremities: 2+ radial pulses bilaterally. 2+ posterior tibialis pulses bilaterally. No edema or cyanosis. Psychiatric: Affect appears appropriate. Results & Data ([facility]) Vital Signs (Past 12 Hours) Vital Signs Temp Pulse Pulse Resp BP BP Pulse Ox 07/28/22 10:47 117 H 15 130/78 95 07/28/22 09:48 145/76 H 07/28/22 09:00 133 H 16 111/92 97 07/28/22 09:46 136 H 16 145/76 H 95 07/28/22 09:04 131 H 111/92 07/28/22 08:52 140 H 16 97 07/28/22 08:46 36.1 C L 135 H 16 156/103 H 96 O2 Del Method 07/28/22 10:47 Room Air 07/28/22 09:48 07/28/22 09:00 07/28/22 09:46 Room Air 07/28/22 09:04 07/28/22 08:52 Room Air 07/28/22 08:46 Room Air Laboratory Results Laboratory Results - last 24 hr 07/28/22 07/28/22 07/28/22 10:04 10:04 10:04 WBC 7.63 RBC 3.90 L Hgb 12.7 Hct 37.0 MCV 94.9 MCH 32.6 MCHC 34.3 RDW Std Deviation 41.3 RDW Coeff of Manju 11.9 Plt Count 218 MPV 11.8 Immature Gran % (Auto) 0.4 Neut % (Auto) 73.6 Lymph % (Auto) 15.2 [place] % (Auto) 8.0 Eos % (Auto) 2.0 Baso % (Auto) 0.8 Neut # (Auto) 5.62 Lymph # (Auto) 1.16 L [place] # (Auto) 0.61 Eos # (Auto) 0.15 Baso # (Auto) 0.06 Immature Gran # (Auto) 0.03 H Sodium 138 Potassium 3.7 Chloride 106 Carbon Dioxide 25 Anion Gap 7 BUN 10 Creatinine 0.64 Est Cr Clr Drug Dosing 80.5 Est GFR ( Amer) 100.5 Est GFR (Non-Af Amer) 86.7 BUN/Creatinine Ratio 15.6 Glucose 104 H Lactate Calcium 8.7 Phosphorus 2.9 Magnesium 1.9 Total Bilirubin 0.7 AST 13 ALT 12 Alkaline Phosphatase 47 Troponin I High Sens 11.6 Total Protein 7.0 Albumin 3.8 Globulin 3.2 Albumin/Globulin Ratio 1.2 Procalcitonin TSH 2.415 Urine Color Urine Appearance Urine pH Ur Specific Mcbrides Urine Protein Urine Glucose (UA) Urine Ketones Urine Blood Urine Nitrite Urine Bilirubin Urine Urobilinogen Ur Leukocyte Esterase Urine WBC (Auto) Urine RBC (Auto) U Hyaline Cast (Auto) U Epithel Cells (Auto) Urine Bacteria (Auto) SARS-CoV-2, RNA, NAAT 07/28/22 07/28/22 07/28/22 10:04 10:04 Unknown WBC RBC Hgb Hct MCV MCH MCHC RDW Std Deviation RDW Coeff of Manju Plt Count MPV Immature Gran % (Auto) Neut % (Auto) Lymph % (Auto) [place] % (Auto) Eos % (Auto) Baso % (Auto) Neut # (Auto) Lymph # (Auto) [place] # (Auto) Eos # (Auto) Baso # (Auto) Immature Gran # (Auto) Sodium Potassium Chloride Carbon Dioxide Anion Gap BUN Creatinine Est Cr Clr Drug Dosing Est GFR ( Amer) Est GFR (Non-Af Amer) BUN/Creatinine Ratio Glucose Lactate 1.0 Calcium Phosphorus Magnesium Total Bilirubin AST ALT Alkaline Phosphatase Troponin I High Sens Total Protein Albumin Globulin Albumin/Globulin Ratio Procalcitonin < 0.05 TSH Urine Color Urine Appearance Urine pH Ur Specific Mcbrides Urine Protein Urine Glucose (UA) Urine Ketones Urine Blood Urine Nitrite Urine Bilirubin Urine Urobilinogen Ur Leukocyte Esterase Urine WBC (Auto) Urine RBC (Auto) U Hyaline Cast (Auto) U Epithel Cells (Auto) Urine Bacteria (Auto) SARS-CoV-2, RNA, NAAT NEGATIVE 07/28/22 Unknown WBC RBC Hgb Hct MCV MCH MCHC RDW Std Deviation RDW Coeff of Manju Plt Count MPV Immature Gran % (Auto) Neut % (Auto) Lymph % (Auto) [place] % (Auto) Eos % (Auto) Baso % (Auto) Neut # (Auto) Lymph # (Auto) [place] # (Auto) Eos # (Auto) Baso # (Auto) Immature Gran # (Auto) Sodium Potassium Chloride Carbon Dioxide Anion Gap BUN Creatinine Est Cr Clr Drug Dosing Est GFR ( Amer) Est GFR (Non-Af Amer) BUN/Creatinine Ratio Glucose Lactate Calcium Phosphorus Magnesium Total Bilirubin AST ALT Alkaline Phosphatase Troponin I High Sens Total Protein Albumin Globulin Albumin/Globulin Ratio Procalcitonin TSH Urine Color Yellow Urine Appearance Clear Urine pH 7.0 Ur Specific [place] 1.009 Urine Protein Negative Urine Glucose (UA) Negative Urine Ketones 1+ H Urine Blood 1+ H Urine Nitrite Negative Urine Bilirubin Negative Urine Urobilinogen Negative Ur Leukocyte Esterase Negative Urine WBC (Auto) 1-5 Urine RBC (Auto) 0-4 U Hyaline Cast (Auto) 1-5 U Epithel Cells (Auto) >30 H Urine Bacteria (Auto) Negative SARS-CoV-2, RNA, NAAT Diagnostic Findings Chest x-ray 07/28/2022: Improvement of mild interstitial edema per Radiology. No focal lung consolidation. ECG personally reviewed: ECG 07/28/2022 at 8:32 a.m.: AFib RVR 128. Poor R-wave progression. ECG 07/24/2022 at 3:17 a.m.: Sinus 91 beats per minute. Nonspecific ST abnormality. ECG 07/24/2022 at 8:19 a.m.: AFib RVR 124 beats per minute. Nonspecific ST abnormality. Medications Administered Current Inpatient Medications Amiodarone HCl (Amiodarone 200 Mg Tab) 400 mg PO BIDM BRANDYN Stop: 08/27/22 16:59 PG Care Time/CCT Total # of Minutes Spent Total Time Spent with Patient: Total time spent is greater than 50% in coordination of care (as documented) at patient's floor/unit and/or counseling patient: Coding Level of Care Code 00761 Office/Outpt Visit, Est Diagnoses Paroxysmal atrial fibrillation I48.0 Anticoagulant long-term use Z79.01
[2022-07-28] MEDS ORDERED: busPIRone 5 MG TAB PO PRN (15:18)
[2022-07-28] MEDS: AMIODARONE 200 MG TAB PO SCH (16:11)
[2022-07-28] MEDS: PANTOprazole 40 MG TAB PO SCH (16:11)
--- NOTE | 2022-07-28 18:16 | XCELERA ---
[id number]
[2022-07-28] MEDS: ADVANCED PROBIOTIC 1250 MG CAPSULE PO SCH (18:56)
[2022-07-28] MEDS: APIXABAN 5 MG TABLET PO SCH (20:54)
[2022-07-29] MEDS: AMIODARONE 200 MG TAB PO SCH (06:43)
--- NOTE | 2022-07-29 06:54 | Hospitalist Progress Note ---
Date of Service July 29, 2022 Assessment & Plan (1) Atrial fibrillation with RVR: Plan: Crystal is a 77 y/o female who presented to the ED on 07/28/22 with symptoms of dizziness, fatigue, elevated heart rate. Her PMH includes atrial fibrillation, osteoporosis, mitral regurgitation, HTN, fibromyalgia. Notes that she has felt jittery and recently was admitted for pneumonia, but on discharge the antibiotics lead to many episodes of diarrhea which she feels may have precipitated this rhythm of atrial fibrillation. Atrial fibrillation with RVR -Patient has paroxysmal atrial fibrillation, appears to be symptomatic in a. fib with increased symptoms while tachycardic -Current episode suspect secondary to antibiotic associated diarrhea however her prior episode starting on July 20 has no precipitating event -Cardiology consulted and discussed with Dr. Cadet, if remains in a. fib overnight will proceed with cardioversion -Per cardiology recs, on amiodarone (no IV due to plan for cardioversion) as well as metoprolol succinate 50 mg p.o. and diltiazem ER 300 mg -Continue Eliquis for stroke prophylaxis Community acquired pneumonia -Recent diagnosis of this with elevated WBC but questionable changes on CT chest -Developed antibiotic associated diarrhea after starting azithromycin. -Current CXR and physical exam with clear auscultation, O2 sat 95% on room air -Doubtful contributing significantly towards current symptoms or atrial fibrillation Diarrhea -Antibiotic-associated, azithromycin stopped -Start probiotics Hypertension -Hold losartan to allow for more rate/rhythm control Plan VTE Prophylaxis - Eliquis Diet - NPO at midnight Disposition - PCU (2) Acute dyspnea: (3) Anticoagulant long-term use: (4) Diarrhea: (5) Acute dehydration: Admission and Anticipated Discharge Date Admission Date: July 28, 2022 Supervising Physician Co-Signing Physician Notes I personally examined the patient and verified all jacobson points of history and exam, discussed case, and agree with decision making with Dr Gomes. Still feeling palpitations. Discussed with cardiologyfor cardioversion tomorrow. Input greatly appreciated. Vitals noted, in general she is awake and alert pleasant no distress. HEENT normocephalic atraumatic mucous membranes moist. Cardio still tachycardic. Breathing unlabored no accessory muscle use good effort. Skin shows no rashes no pallor or icterus. A. fib/RVRfairly refractory to rate control, and seems that she may be symptomatic simply from the rhythm as welleither way, certainly makes sense to proceed with cardioversion tomorrow. Started to discuss with patient in depth the general approach to A. fib, how to follow symptoms, how to distinguish symptoms that might be from A. fib to symptoms that might be to processes that cause similar feelings such as anxietydiscussed home rhythm monitoring can sometimes be helpful with this as well. Likely home tomorrow as long as cardioversion is successful. Continue anticoagulation. otherwise as above Subjective Patient seen and examined at bedside. Continues to have symptoms, awoke at 3am and felt panicked. Feels that her anxiety is also making the symptoms worse. Denies shortness of breath, chest pain, fever, body aches, or chills Review of Systems Review of Systems: As per HPI Physical Exam Constitutional: WD/WN, vitals as above ENMT: external ear and nose normal, oropharynx normal Neck: trachea midline, no thyromegaly Respiratory: normal respiratory effort, lungs clear to auscultation Cardiovascular: Rate/Rhythm: + irregularly irregular Extremities: no edema Gastrointestinal (Abdomen): normal bowel sounds, soft, nontender, no hepatosplenomegaly Skin: no rashes, warm and dry Psychiatric: A+Ox3, euthymic affect Results & Data Results & Data ([facility]) Vital Signs (Past 12 Hours) Vital Signs Temp Pulse Pulse Resp BP Pulse Ox O2 Del Method 07/29/22 06:35 115 H 140/92 07/29/22 03:29 36.5 C 122 H 18 154/88 H 91 Room Air 07/29/22 00:25 36.8 C 116 H 16 126/77 93 Room Air 07/28/22 22:00 122 H 07/28/22 20:00 Room Air 07/28/22 20:36 36.0 C L 111 H 18 144/85 H 94 Room Air Resident Activity Tracking Resident Involvement: Resident Care Provided Care Provided: Adult Hospital Medicine
[2022-07-29] MEDS: APIXABAN 5 MG TABLET PO SCH ×2 (08:48→19:56)
[2022-07-29] MEDS: ADVANCED PROBIOTIC 1250 MG CAPSULE PO SCH (08:48)
[2022-07-29] MEDS: MULTIVITAMIN TAB PO SCH (08:49)
[2022-07-29] MEDS: CHOLECALCIFEROL 1,000 UNITS 25 MCG TAB PO SCH (08:49)
[2022-07-29] MEDS: PANTOprazole 40 MG TAB PO SCH (08:49)
[2022-07-29] MEDS: CYANOCOBALAMIN (B-12) 500 MCG TABLET PO SCH (08:49)
[2022-07-29] MEDS: METOPROLOL SUCC 50MG EXT REL TAB PO SCH (08:50)
[2022-07-29] MEDS ORDERED: dilTIAZem HCL 120 MG CAPCR PO SCH (09:00)
[2022-07-29] MEDS ORDERED: POTASSIUM CHLORIDE CRTAB 20 MEQ TABCR PO STA (10:10)
[2022-07-29] MEDS ORDERED: AMIODARONE / D5W 150 MG/100 ML BAG IV STA (14:29)
[2022-07-29] MEDS ORDERED: STAT IV Infusion **Titration per Protocol STA (14:29)
[2022-07-29] MEDS ORDERED: AMIODARONE IV BOLUS & DRIP IV STA (14:29)
[2022-07-29] MEDS ORDERED: 0.2 MICRON FILTER SET 1 EACH IV STA (14:29)
--- NOTE | 2022-07-29 14:37 | Cardiology Progress Note ---
Date of Service July 29, 2022 Assessment & Plan (1) Paroxysmal atrial fibrillation: (2) Anticoagulant long-term use: Plan ASSESSMENT/PLAN: 1. Paroxysmal atrial fibrillation: She remains symptomatic, while remaining in atrial fibrillation. Likely to convert to sinus rhythm based on her past experiences. Now on amiodarone but will change to intravenous amiodarone for the purpose of continued loading. If remains in atrial fibrillation tomorrow, recommended DC cardioversion. She is willing to consider it now but has not committed to such. Hopefully she converts in the meantime. N.p.o. after midnight for possible cardioversion tomorrow. Monitor TSH and transaminase l evels while on amiodarone. Continue beta sara. Continue anticoagulation for stroke risk reduction. 2. Anticoagulation therapy: Continue anticoagulation therapy for stroke risk reduction. Monitor renal function and CBC periodically while on Eliquis. 3. Disposition: Plan of care communicated with Dr. Khanna of the primary hospitalist service. Dr. Soliz, her primary cement handler, will resume her cardiology care tomorrow. She should follow-up with Dr. Soliz on discharge. Highly complex medical issues for which cardioversion was once again considered, discussed, and recommended. Admission and Anticipated Discharge Date Admission Date: July 28, 2022 Subjective She continues to remain in atrial fibrillation. She continues to have a jitteriness feeling. She denies chest pain, orthopnea, shortness of breath, syncope, near syncope, edema, or bleeding. She was alone in her hospital room. Physical Exam Physical Exam: Gen.: No acute distress. Alert. HEENT: Anicteric sclera. Neck: No JVD. Cardiac: Irregularly irregular. Normal S1-S2. No murmurs, rubs, or gallops. Pulmonary: Clear to auscultation bilaterally without wheezes, rales, or rhonchi. Abdomen: Soft, nontender, nondistended, with normoactive bowel sounds. No bruits noted. Extremities: 2+ radial pulses bilaterally. 2+ posterior tibialis pulses bilaterally. No edema or cyanosis. Psychiatric: Affect appears appropriate. Results & Data ([facility]) Vital Signs (Past 12 Hours) Vital Signs Temp Pulse Pulse Resp BP Pulse Ox O2 Del Method 07/29/22 11:54 37.0 C 110 H 20 129/75 96 Room Air 07/29/22 06:04 124 H 07/29/22 08:02 37.3 C 118 H 20 128/75 94 Room Air 07/29/22 06:35 115 H 140/92 07/29/22 03:29 36.5 C 122 H 18 154/88 H 91 Room Air Intake & Output 07/27/22 07/28/22 07/29/22 07/30/22 06:59 06:59 06:59 06:59 Intake Total 2099 Balance 2099 Weight 188 lb 0.869 oz Laboratory Results Laboratory Results - last 24 hr 07/29/22 07/29/22 10:21 Unknown Magnesium 2.0 Stl C. diff Tox B Gene Negative Cdiff Gene Diagnostic Findings Telemetry personally reviewed: Atrial fibrillation with rapid ventricular response. Medications Administered Current Inpatient Medications Amiodarone HCl (Amiodarone 200 Mg Tab) 400 mg PO BIDM [facility] Stop: 08/07/22 16:59 Last Admin: 07/29/22 06:43 Dose: 400 mg Amiodarone HCl (Amiodarone 200 Mg Tab) 200 mg PO BIDM [facility] Stop: 09/06/22 16:59 Apixaban (Apixaban 5 Mg Tablet) 5 mg PO BID [facility] Stop: 08/27/22 20:59 Last Admin: 07/29/22 08:48 Dose: 5 mg Buspirone HCl (Buspirone 5 Mg Tab) 10 mg PO TID PRN PRN Reason: Anxiety Stop: 08/27/22 15:17 Last Admin: 07/29/22 08:49 Dose: 10 mg Cyanocobalamin (Cyanocobalamin (B-12) 500 Mcg Tablet) 1,000 mcg PO DAILY [facility] Stop: 08/28/22 08:59 Last Admin: 07/29/22 08:49 Dose: 1,000 mcg Diltiazem HCl (Diltiazem Hcl 120 Mg Capcr) 120 mg PO DAILY [facility] Stop: 08/28/22 08:59 Last Admin: 07/29/22 08:49 Dose: 120 mg Amiodarone HCl/Dextrose (Nexterone / D5w) 360 mg in 200 mls @ 33.333 mls/hr IV ONE ONE Stop: 07/29/22 20:59 Amiodarone HCl/Dextrose (Nexterone / D5w) 360 mg in 200 mls @ 16.667 mls/hr IV .Q12H [facility] Stop: 08/28/22 20:59 Lactobacillus Acidophilus (Advanced Probiotic 1250 Mg Capsule) 2 cap PO DAILY [facility] Stop: 08/27/22 15:29 Last Admin: 07/29/22 08:48 Dose: 2 cap Metoprolol Succinate (Metoprolol Succ 50mg Ext Rel Tab) 50 mg PO DAILY [facility] Stop: 08/28/22 08:59 Last Admin: 07/29/22 08:50 Dose: 50 mg Multivitamins (Multivitamin Tab) 1 tab PO QAM [facility] Stop: 08/28/22 08:59 Last Admin: 07/29/22 08:49 Dose: 1 tab Pantoprazole Sodium (Pantoprazole 40 Mg Tab) 40 mg PO QAM [facility] Stop: 08/27/22 15:29 Last Admin: 07/29/22 08:49 Dose: 40 mg Vitamin D (Cholecalciferol 1,000 Units 25 Mcg Tab) 1,000 units PO DAILY [facility] Stop: 08/28/22 08:59 Last Admin: 07/29/22 08:49 Dose: 1,000 units PG Care Time/CCT Total # of Minutes Spent Total Time Spent with Patient: Total time spent is greater than 50% in coordination of care (as documented) at patient's floor/unit and/or counseling patient: Coding Level of Care Code 52511 Office/Outpt Visit, Est Diagnoses Paroxysmal atrial fibrillation I48.0 Anticoagulant long-term use Z79.01
[2022-07-29] MEDS ORDERED: AMIODARONE / D5W 360 MG/200 ML BAG IV ONE (15:00)
--- NOTE | 2022-07-29 17:55 | Billing Data ---
Date of Service July 29, 2022 Coding Level of Care Code 74721 Subseq Obs Care Lvl 3
[2022-07-29] MEDS: AMIODARONE / D5W 360 MG/200 ML BAG IV SCH (22:05)
[2022-07-29] MEDS ORDERED: LOPERAMIDE HCL 2 MG CAP PO STA (23:40)
[2022-07-30] MEDS: CYANOCOBALAMIN (B-12) 500 MCG TABLET PO SCH (10:50)
[2022-07-30] MEDS: AMIODARONE / D5W 360 MG/200 ML BAG IV SCH (10:50)
[2022-07-30] MEDS: MULTIVITAMIN TAB PO SCH (10:50)
[2022-07-30] MEDS: METOPROLOL SUCC 50MG EXT REL TAB PO SCH (10:50)
[2022-07-30] MEDS: PANTOprazole 40 MG TAB PO SCH (10:50)
[2022-07-30] MEDS: APIXABAN 5 MG TABLET PO SCH (10:50)
[2022-07-30] MEDS: CHOLECALCIFEROL 1,000 UNITS 25 MCG TAB PO SCH (10:50)
[2022-07-30] MEDS: ADVANCED PROBIOTIC 1250 MG CAPSULE PO SCH (10:50)
--- NOTE | 2022-07-30 11:15 | Cardiology Progress Note ---
Date of Service July 30, 2022 Assessment & Plan (1) Paroxysmal atrial fibrillation: (2) Anticoagulant long-term use: Plan ASSESSMENT/PLAN: 1. Paroxysmal atrial fibrillation: She remains symptomatic, while remaining in atrial fibrillation. Once again recommended DC cardioversion and she is agreeable. Risks and benefits were discussed with her in detail. Will place anesthesiology consultation to provide sedation. She has been n.p.o.. Monitor TSH and transaminase levels while on amiodarone. Continue beta sara. Continue anticoagulation for stroke risk reduction. If successfully cardioverted, would continue amiodarone but can replace IV with p.o. 400 mg twice daily for 7 more days and then 200 mg twice daily. Future dose can be adjusted by Dr. Soliz, her primary gas transfer operator. 2. Anticoagulation therapy: Continue anticoagulation therapy for stroke risk reduction. Monitor renal function and CBC periodically while on Eliquis. 3. Disposition: Plan of care communicated with Dr. Gomes of the primary hospitalist service. Dr. Soliz, her primary gas transfer operator, will resume her cardiology care tomorrow. She should follow-up with Dr. Soliz on discharge. Admission and Anticipated Discharge Date Admission Date: July 28, 2022 Subjective Patient seen this morning. She remains in atrial fibrillation and remains symptomatic. She denies chest pain, shortness of breath, syncope, near syncope, edema, or bleeding. She would like to proceed with cardioversion. Offered to call her family but she states that her is currently unavailable and does not need to be called prior to the procedure. Physical Exam Physical Exam: Gen.: No acute distress. Alert. HEENT: Anicteric sclera. Neck: No JVD. Cardiac: Irregularly irregular. Tachycardic. Normal S1-S2. No murmurs, rubs, or gallops. Pulmonary: Clear to auscultation bilaterally without wheezes, rales, or rhonchi. Abdomen: Soft, nontender, nondistended, with normoactive bowel sounds. No bruits noted. Extremities: 2+ radial pulses bilaterally. 2+ posterior tibialis pulses bilaterally. No edema. No cyanosis. Psychiatric: Affect appears appropriate. Results & Data ([facility]) Vital Signs (Past 12 Hours) Vital Signs Temp Pulse Resp BP Pulse Ox O2 Del Method 07/30/22 08:00 Room Air 07/30/22 07:50 36.4 C L 113 H 18 174/105 H 97 Room Air 07/30/22 02:50 36.6 C 122 H 18 160/105 H 94 Room Air Laboratory Results Laboratory Results - last 24 hr 07/29/22 Unknown Stl C. diff Tox B Gene Negative Cdiff Gene Diagnostic Findings Telemetry personally reviewed: Remains in atrial fibrillation with rapid ventricular response. Medications Administered Current Inpatient Medications Amiodarone HCl (Amiodarone 200 Mg Tab) 400 mg PO BIDM [facility] Stop: 08/07/22 16:59 Last Admin: 07/29/22 06:43 Dose: 400 mg Amiodarone HCl (Amiodarone 200 Mg Tab) 200 mg PO BIDM [facility] Stop: 09/06/22 16:59 Apixaban (Apixaban 5 Mg Tablet) 5 mg PO BID [facility] Stop: 08/27/22 20:59 Last Admin: 07/29/22 19:56 Dose: 5 mg Buspirone HCl (Buspirone 5 Mg Tab) 10 mg PO TID PRN PRN Reason: Anxiety Stop: 08/27/22 15:17 Last Admin: 07/29/22 08:49 Dose: 10 mg Cyanocobalamin (Cyanocobalamin (B-12) 500 Mcg Tablet) 1,000 mcg PO DAILY [facility] Stop: 08/28/22 08:59 Last Admin: 07/29/22 08:49 Dose: 1,000 mcg Diltiazem HCl (Diltiazem Hcl 120 Mg Capcr) 120 mg PO DAILY [facility] Stop: 08/28/22 08:59 Last Admin: 07/29/22 08:49 Dose: 120 mg Amiodarone HCl/Dextrose (Nexterone / D5w) 360 mg in 200 mls @ 16.667 mls/hr IV .Q12H [facility] Stop: 08/28/22 20:59 Last Admin: 07/29/22 22:05 Dose: 0.5 mg/min, 16.7 mls/hr Lactobacillus Acidophilus (Advanced Probiotic 1250 Mg Capsule) 2 cap PO DAILY [facility] Stop: 08/27/22 15:29 Last Admin: 07/29/22 08:48 Dose: 2 cap Metoprolol Succinate (Metoprolol Succ 50mg Ext Rel Tab) 50 mg PO DAILY [facility] Stop: 08/28/22 08:59 Last Admin: 07/29/22 08:50 Dose: 50 mg Multivitamins (Multivitamin Tab) 1 tab PO QAM REPLACED BY [facility] Stop: 08/28/22 08:59 Last Admin: 07/29/22 08:49 Dose: 1 tab Pantoprazole Sodium (Pantoprazole 40 Mg Tab) 40 mg PO QAM REPLACED BY [facility] Stop: 08/27/22 15:29 Last Admin: 07/29/22 08:49 Dose: 40 mg Vitamin D (Cholecalciferol 1,000 Units 25 Mcg Tab) 1,000 units PO DAILY [facility]PL[facility] Stop: 08/28/22 08:59 Last Admin: 07/29/22 08:49 Dose: 1,000 units PG Care Time/CCT Total # of Minutes Spent Total Time Spent with Patient: Total time spent is greater than 50% in coordination of care (as documented) at patient's floor/unit and/or counseling patient: Coding Level of Care Code 27436 Office/Outpt Visit, Est Diagnoses Paroxysmal atrial fibrillation I48.0 Anticoagulant long-term use Z79.01
--- NOTE | 2022-07-30 11:31 | Anesthesiology Consultation ---
Date of Service July 30, 2022 Assessment & Plan (1) Encounter for pre-operative examination: Chart Review Chart Review: Acceptable Risk for Surgery ((cardioversion)) History Surgery Operation Date: 07/30/22 14:00 Proposed Procedures p Cardioversion Safe Technician w/Anesthesia - Andre Cadet MD Height/Weight Height: 5 ft 5 in Weight: 85.9 kg Allergies Allergy/AdvReac Type Severity Reaction Status Date / Time celecoxib Allergy Intermediate RASH Verified 07/24/22 02:44 levofloxacin Allergy Intermediate HIVES Verified 07/24/22 02:44 meperidine AdvReac Intermediate n/v Verified 07/24/22 02:44 Medications Home Medications Medication Instructions Recorded Confirmed Last Taken cholecalciferol (vitamin D3) 25 1,000 units PO DAILY #90 caps 05/15/19 07/28/22 07/23/22 mcg (1,000 unit) capsule multivitamin (Daily Multi-Vitamin 1 tab PO QAM 02/02/20 07/28/22 07/23/22 tablet) buspirone 10 mg tablet 10 mg PO TID PRN anxiety #90 tabs 01/09/21 07/28/22 Unknown losartan 100 mg tablet 100 mg PO QAM 10/10/21 07/28/22 1 Day Ago ~07/27/22 apixaban 5 mg tablet (Eliquis) 5 mg PO BID 30 days #180 tabs 10/21/21 07/28/22 1 Day Ago ~07/27/22 diltiazem HCl 300 mg 300 mg PO DAILY #90 caps 03/09/22 07/28/22 1 Day Ago capsule,extended release 24 hr ~07/27/22 mecobalamin (vitamin B12) 1,000 1,000 mcg sublingual DAILY 03/25/22 07/28/22 07/23/22 mcg disintegrating tablet,sublingual omeprazole 40 mg capsule,delayed 40 mg PO QAM #90 caps 06/10/22 07/28/22 07/27/22 release metoprolol succinate 25 mg 50 mg PO DAILY 07/24/22 07/28/22 1 Day Ago tablet,extended release 24 hr ~07/27/22 amoxicillin 500 mg-potassium 1 tab PO BID #10 tabs 07/25/22 07/28/22 1 Day Ago clavulanate 125 mg tablet ~07/27/22 (Augmentin) Active Medications Generic Name Dose Route Start Last Admin Trade Name Freq PRN Reason Stop Dose Admin Amiodarone HCl 400 mg 07/28/22 17:00 07/29/22 06:43 Amiodarone 200 Mg Tab PO 08/07/22 16:59 400 mg BIDM [facility] Administration Apixaban 5 mg 07/28/22 21:00 07/29/22 19:56 Apixaban 5 Mg Tablet PO 08/27/22 20:59 5 mg BID [facility] Administration Buspirone HCl 10 mg 07/28/22 15:18 07/29/22 08:49 Buspirone 5 Mg Tab PO 08/27/22 15:17 10 mg TID PRN Administration Anxiety Cyanocobalamin 1,000 mcg 07/29/22 09:00 07/29/22 08:49 Cyanocobalamin (B-12) 500 Mcg Tablet PO 08/28/22 08:59 1,000 mcg DAILY [facility] Administration Diltiazem HCl 120 mg 07/29/22 09:00 07/29/22 08:49 Diltiazem Hcl 120 Mg Capcr PO 08/28/22 08:59 120 mg DAILY [facility] Administration Amiodarone HCl/Dextrose 360 mg in 200 mls @ 16.667 mls/hr 07/29/22 21:00 07/29/22 22:05 Nexterone / D5w IV 08/28/22 20:59 0.5 mg/min .Q12H [facility] 16.7 mls/hr Administration 0.5 MG/MIN Lactobacillus Acidophilus 2 cap 07/28/22 15:30 07/29/22 08:48 Advanced Probiotic 1250 Mg Capsule PO 08/27/22 15:29 2 cap DAILY [facility] Administration Metoprolol Succinate 50 mg 07/29/22 09:00 07/29/22 08:50 Metoprolol Succ 50mg Ext Rel Tab PO 08/28/22 08:59 50 mg DAILY [facility] Administration Multivitamins 1 tab 07/29/22 09:00 07/29/22 08:49 Multivitamin Tab PO 08/28/22 08:59 1 tab QAM [facility] Administration Pantoprazole Sodium 40 mg 07/28/22 15:30 07/29/22 08:49 Pantoprazole 40 Mg Tab PO 08/27/22 15:29 40 mg QAM [facility] Administration Vitamin D 1,000 units 07/29/22 09:00 07/29/22 08:49 Cholecalciferol 1,000 Units 25 Mcg Tab PO 08/28/22 08:59 1,000 units DAILY [facility] Administration Past Medical History Medical History Anticoagulant long-term use Anxiety Atrial fibrillation on eliquis - follows with Dr. Soliz Fibromyalgia GERD (gastroesophageal reflux disease) History of compression fracture of spine thoracic History of depression History of diverticulitis History of hyperthyroidism History of wrist fracture Left Hypertension Osteoporosis Vertigo Vitamin D deficiency Past Family History Family History Mother Breast cancer Hypertension Father Prostate cancer Colorectal cancer Hypertension Other No family history of adverse response to anesthesia Denies family history of Ovarian cancer Diabetes Myocardial infarction Past Surgical History Surgical History H/O oral surgery H/O tubal ligation History of carpal tunnel surgery of left wrist 10-21-21 Dr Marin, [facility] History of hemorrhoidectomy History of open reduction and internal fixation (ORIF) procedure Lt femur Hx of appendectomy Hx of cholecystectomy S/P colon resection 2/2 diverticular disease S/P tonsillectomy Social History Smoking Status: Never smoker Hx Alcohol Use: No Alcohol type: wine Hx Substance Use: No substance use type: does not use Physical Exam Vital Signs Last Vital Signs Temp 36.7 C 07/30/22 10:00 Pulse 121 H 07/30/22 10:00 Resp 18 07/30/22 07:50 BP 174/105 H 07/30/22 07:50 Pulse Ox 97 07/30/22 07:50 O2 Del Method 07/30/22 08:00 Testing Laboratory Results 07/28/22 10:04 07/28/22 10:04 Urine Color Yellow 07/28/22 Unknown Urine Appearance Clear (Clear) 07/28/22 Unknown Urine pH 7.0 (4.5-7.5) 07/28/22 Unknown Ur Specific Downs 1.009 (1.000-1.030) 07/28/22 Unknown Urine Protein Negative (Negative) 07/28/22 Unknown Urine Glucose (UA) Negative (Negative) 07/28/22 Unknown Urine Ketones 1+ (Negative) H 07/28/22 Unknown Urine Nitrite Negative (Negative) 07/28/22 Unknown Ur Leukocyte Esterase Negative (Negative) 07/28/22 Unknown Urine WBC (Auto) 1-5 /hpf (0-5) 07/28/22 Unknown Urine RBC (Auto) 0-4 /hpf (0-4) 07/28/22 Unknown U Hyaline Cast (Auto) 1-5 /lpf (0-5) 07/28/22 Unknown U Epithel Cells (Auto) >30 /lpf (0-5) H 07/28/22 Unknown Urine Bacteria (Auto) Negative (Negative) 07/28/22 Unknown 07/28/22 10:18 Aerobic Blood Culture - Preliminary Blood No growth in Aerobic bottle after 48 hours. Anaerobic Blood Culture - Preliminary No growth in Anaerobic bottle after 48 hours. 07/28/22 10:04 Aerobic Blood Culture - Preliminary Blood No growth in Aerobic bottle after 48 hours. Anaerobic Blood Culture - Preliminary No growth in Anaerobic bottle after 48 hours. Electrocardiogram Date: 07/28/22 Findings: + AFIB @ (128) possible old anterior infarct Chest X-Ray Date: 07/28/22 Findings: + cardiomegaly improvement in the mild interstitial edema seen on 07/24 Echocardiogram Date: 07/30/22 EF: >70% LV Function: normal Valvular Disease: + no significant valvular disease possible mild RV dilation and mildly reduced RV systolic function - mild pulmonary hypertension
[2022-07-30 12:40] LABS: Albumin Globulin Ratio 1.2 (0.9-2); Albumin Level 3.7 gm/dl (3.4-5.0); Bilirubin,Total 0.5 mg/dl (0.2-1.0); Calcium 8.8 mg/dl (8.5-10.1); Creatinine Clr Calc Pharmacy 90.9 ml/min; Est GFR (African American) 104.4 ml/min; Globulin 3.1 gm/dl (2.5-4.0); Potassium 3.6 mmol/L (3.5-5.1); Total Protein 6.8 gm/dl (6.0-8.3)
[2022-07-30] MEDS ORDERED: LIDOCAINE 2% MPF LOCAL 5 ML VIAL INFIL ONE (12:45)
[2022-07-30] MEDS ORDERED: PROPOFOL IV EMULSION 10 MG/ML 20 ML VIAL IV ONE (12:45)
--- NOTE | 2022-07-30 13:19 | Cardioversion ---
Date of Service July 30, 2022 PG Electrical Cardioversion Rp Electrical Cardioversion Report Procedure: DC Cardioversion (elective) Indication: Symptomatic atrial fibrillation with RVR Informed consent: Obtained Primary regulatory affairs strategy specialist: Dr. Soliz Sedation: Provided by anesthesiology Anticoagulation: Therapeutic Eliquis Antiarrhythmic: Amiodarone (x 3 days) Time Out: Performed Procedure Details: Once pt was sufficiently sedated, 150 Joules were delivered in a synchronized fashion, which successfully converted atrial fibrillation to sinus rhythm. She tolerated the procedure well, without known complication. She remained hemodynamically stable. Plan: 1. Continue anticoagulation without interruption for at least 4 weeks, following cardioversion. Indefinite anticoagulation appears to be indicated. 2. Continue amiodarone but can d/c IV and resume 400 mg po bid as outlined in progress note. 3. Continue metoprolol. 4. Follow up with Dr. Soliz in 1-2 weeks. 5. Her was updated via telephone. 6. Primary team updated. Coding Level of Care Code Cardioversion, elective Additional Codes Electrical Cardioversion Report ([id number])
--- NOTE | 2022-07-30 13:53 | Anesthesiology Progress Note ---
Date of Service July 30, 2022 Anesthesia Post Procedure Vital Signs Vital Signs: Temp Pulse Pulse Resp BP BP Pulse Ox 07/30/22 13:23 83 16 166/87 H 95 07/30/22 13:15 83 16 173/93 H 97 07/30/22 13:12 84 16 159/98 H 95 07/30/22 13:05 125 H 16 166/109 H 96 07/30/22 11:52 36.5 C 123 H 17 155/96 H 95 07/30/22 10:00 121 H 07/30/22 10:00 36.7 C 07/30/22 08:00 07/30/22 07:50 36.4 C L 113 H 18 174/105 H 97 07/30/22 02:50 36.6 C 122 H 18 160/105 H 94 07/29/22 22:17 113 H 07/29/22 23:12 36.7 C 103 H 18 150/94 H 97 07/29/22 20:00 07/29/22 21:35 170/100 H 159/108 H 07/29/22 19:55 157/106 H 07/29/22 19:49 36.4 C L 107 H 18 163/120 H 95 07/29/22 15:59 119/26 L 07/29/22 15:30 36.6 C 125 H 16 120/86 95 07/29/22 14:02 113 H O2 Del Method 07/30/22 13:23 Room Air 07/30/22 13:15 Room Air 07/30/22 13:12 Room Air 07/30/22 13:05 Room Air 07/30/22 11:52 Room Air 07/30/22 10:00 07/30/22 10:00 07/30/22 08:00 Room Air 07/30/22 07:50 Room Air 07/30/22 02:50 Room Air 07/29/22 22:17 07/29/22 23:12 Room Air 07/29/22 20:00 Room Air 07/29/22 21:35 07/29/22 19:55 07/29/22 19:49 Room Air 07/29/22 15:59 07/29/22 15:30 Room Air 07/29/22 14:02 Transfer of Care Handoff Completed per policy Notes Mental Status: alert / awake / arousable Patient Amnestic to Procedure: Yes Nausea / Vomiting: adequately controlled Pain: adequately controlled Airway Patency, RR, SpO2: stable & adequate BP & HR: stable & adequate Hydration State: stable & adequate Anesthetic Complications: no major complications apparent
--- NOTE | 2022-07-30 14:04 | Discharge Summary ---
Date of Service July 30, 2022 Admission HPI Per Admitting Provider Dante Elkins is a 77-year-old female who presents to the ER with elevated heart rate, dizziness, fatigue and shortness of breath. Symptoms appear to be well correlated when she goes into atrial fibrillation most recently on July 20 when she initially went to he ER and followed up with Howie Pham PA-C the following day with the expectation she would spontaneously convert with doubling her dose of metoprolol. No precipitating event of this and TSH WNL. No alcohol use. Suspect she was in more rapid atrial fibrillation prior to her eventual hospitalization on July 242021 when she was diagnosed with a pneumonia with elevated WBC although this may have just been pulmonary edema. All EKGs during this admission show her in normal sinus rhythm and her shortness of breath improved. She developed diarrhea (although frequency only once a day) after she went home and antibiotics were converted to oral Augmentin. She has been measuring her heart rate at home in the 150s. This morning she felt woozy, dizzy with generalized weakness therefore decided to return to the ER. Admission Exam Per Admitting Provider Constitutional: WD/WN, vitals as above Eyes: + anicteric sclerae; normal pupil size Cardiovascular: Rate/Rhythm: + tachycardic and + irregularly irregular Heart Sounds: no murmur Gastrointestinal (Abdomen): normal bowel sounds, soft, nontender, no hepatosplenomegaly Musculoskeletal: no cyanosis or clubbing, extremities motor strength 5/5 Skin: no rashes, warm and dry Neurologic: moves all extremities and awake; not confused Psychiatric: A+Ox3, euthymic affect Principal Diagnosis A. Fib with RVR Discharge Exam Constitutional WD/WN, vitals as above ENMT external ear and nose normal, oropharynx normal Neck trachea midline, no thyromegaly Cardiovascular RRR, no murmur, no edema Gastrointestinal (Abdomen) normal bowel sounds, soft, nontender, no hepatosplenomegaly Skin no rashes, warm and dry Psychiatric A+Ox3, euthymic affect Discharge Data Allergies Allergy/AdvReac Type Severity Reaction Status Date / Time celecoxib Allergy Intermediate RASH Verified 07/24/22 02:44 levofloxacin Allergy Intermediate HIVES Verified 07/24/22 02:44 meperidine AdvReac Intermediate n/v Verified 07/24/22 02:44 Consultations 07/28/22 11:20 ED Decision to Admit Stat 07/28/22 11:27 Consult Cardiology Routine 07/30/22 11:12 Consult Anesthesiology Routine Procedures Performed Operation Date: 07/30/22 14:00 Actual Procedures p Cardioversion Central Communications Specialist w/Anesthesia - Andre Cadet MD Hospital Course (1) Atrial fibrillation with RVR: Jamison Rojas is a 77 y/o female who presented to the ED on 07/28/22 with symptoms of dizziness, fatigue, elevated heart rate. Her PMH includes atrial fibrillation, osteoporosis, mitral regurgitation, HTN, fibromyalgia. Notes that she has felt jittery and recently was admitted for pneumonia, but on discharge the antibiotics lead to many episodes of diarrhea which she feels may have precipitated this rhythm of atrial fibrillation. Patient had paroxysmal atrial fibrillation, appears to be symptomatic in a. fib with increased symptoms while tachycardic. Current episode suspect secondary to antibiotic associated diarrhea however her prior episode starting on July 20 has no precipitating event. Cardiology consulted and discussed with Dr. Cadet, started on amiodarone but did not respond to over 24 hrs of treatment. Patient was in agreement to undergo cardioversion, procedure successful and returned to sinus rhythm. Patient fatigued but noted significant improvement of symptoms after cardioversion. Per cardiology, patient discharged on amiodarone 400mg BID for 7 days, then switch to 200mg BID. Will continue metoprolol, losartan, Eliquis. Patient has follow Dr. Soliz scheduled as well as PCP. Patient in agreement to return home today. Total Time Total Time Spent Total Time Spent (In Minutes): . 35 Discharge Plan Discharge Items Patient Disposition: Home - Self-Care Reason For Visit: ATRIAL FIBRILLATION WITH RVR Discharge Diagnosis: A. Fib w RVR- Cardioversion Activity: Per Instructions section Non-emergency contact: Primary Care Provider and Seo Manager Call non-emergency contact if: you have any medication questions and your symptoms worsen Follow-up/Referrals: Tin Soliz MD [Physician] - 08/14/22 1:30 pm Tyrese Morrell DO [Primary Care Provider] - 08/05/22 1:30 pm (PCP follow up appointment: August 05, 2022 @ 1:30pm ) Diet: Regular Addtl Attending Provider Instructions: felipe Rojas were admitted to the hospital after developing symptoms of fatigue, jitteriness, dizziness and elevated heart rate. While at the hospital, you were noted to be in atrial fibrillation. Of note, you were recently in the hospital for pneumonia and sent home on antibiotics which lead to several days of diarrhea. This stress on your body may have contributed to your symptoms and the return to atrial fibrillation. We initially started you on amiodarone (a medication to help the rhythm of your heart), but after 24+hrs of treatment you heart remained in atrial fibrillation. You were seen and evaluated by Dr. Cadet, the large engine assembler, who discussed with options including the amiodarone medication, however after your symptoms did not improve and you remained in atrial fibrillation, it was decided that the best course of action would be cardioversion. This afternoon you were given sedation and the cardioversion successfully returned you to sinus rhythm. After being monitored for a period of time after the procedure, you are now able to be discharged home. Medications: +Continue on the new medication Amiodarone 400mg twice daily for 7 days, then switch to 200mg twice daily (prescription sent to pharmacy) -Note: the prescription for amiodarone will be for 200mg tablets so you will take 2 tablets in the morning and 2 tablets in the evening for 7 days (07/31- 08/06). Then take 1 tablet in the morning and 1 tablet in the evening for the remainder of the month. +Continue on Eliquis +Continue on Metoprolol +Continue the Losartan -STOP the diltiazem on discharge * Follow up with your large engine assembler, Dr. Soliz, in 1-2 weeks * Please contact your primary care doctor for a hospital discharge follow up appointment in the next 1-2 weeks as well Pending Studies at Discharge: No Stand-Alone Forms: My [facility], Smoking Cessation Medications and DC Order Prescriptions: New amiodarone 200 mg tablet See Rx Instructions .ROUTE .COMPLEX Qty: 74 0RF Rx Instructions: Take 2 tablets in the morning and 2 tablets in the evening for 7 days (07/31- 08/06). Then take 1 tablet in the morning and 1 tablet in the evening for the remainder of the month. Continued Eliquis 5 mg tablet 5 mg PO BID 30 Days Qty: 180 3RF omeprazole 40 mg capsule,delayed release(DR/EC) 40 mg PO QAM Qty: 90 3RF buspirone 10 mg tablet 10 mg PO TID PRN (Reason: anxiety) Qty: 90 2RF cholecalciferol (vitamin D3) 1,000 unit capsule 1,000 units PO DAILY Qty: 90 multivitamin [Daily Multi-Vitamin] Tablet 1 tab PO QAM mecobalamin (vitamin B12) 1,000 mcg tablet,disintegrating 1,000 mcg sublingual DAILY Rx Instructions: place tablet under tongue and allow to dissolve for at least30 secs before swallowing losartan 100 mg tablet 100 mg PO QAM Rx Instructions: for high blood pressure metoprolol succinate 25 mg tablet extended release 24 hr 50 mg PO DAILY Discontinued diltiazem HCl 300 mg capsule,extended release 24hr 300 mg PO DAILY Qty: 90 3RF amoxicillin-pot clavulanate [Augmentin] 500-125 mg tablet 1 tab PO BID Qty: 10 0RF Rx Instructions: start one pill 2 times per day starting on 07/26/22 Discharge Orders: Discharge Order (Routine); Ordered 07/30/22 Ordered By: Nia Hernandez/Other Patient Handouts: Low-Fiber Diet, Treating Diarrhea, Dehydration, AFib Admission Data Admit Date/Time: 07/28/22 12:54 Attending Provider: Venu Chiang Admit Provider: Jad Yap Primary Care Provider: Tyrese Morrell Other Providers: Jad Yap ; Andre Cadet ; Darline Elkins ; Adriana Hamlin ; Erika Patel ; Crystal Velazquez ; Shanthi Engel. ; Rajendra Harrington ; Chuy Haney ; Ant Dave ; Immanuel Hodge ; Damaris Hodge ; Abelino Diaz ; Loraine Syed ; Frank Avila ; Jacques Hoffman ; Darius Kraus ; Terry Cooper ; Wendy Mccoy ; Madi Toure ; Angela Yo ; Tamie Toure ; Carlos Barrera ; Marely Sheriff ; Bert Becerra ; Kely Muir ; Valery Burnett ; Pj Dawn ; Caridad Oconnor ; Tala Villalta ; Marianne Grimaldo ; Jessica Guzman ; Michael Guzman V ; Ras [place] ; Adriana Hernandez ; Hector Tucker ; Luana Manrique ; Michael hC ; Dimas Mccoy ; Kareem Grier ; Meche Warner ; Sunita Bernabe ; Michael Matthews ; Richard Izquierdo ; Monty Valenzuela ; Charlie Cooper ; Peggy Eduardo ; Everton Burger ; Shirley Shaw ; Alexander Miller ; Everton Roman ; Rajendra Adams Jr ; Shirley Whitmore ; Capri Yoon ; Ida Childress ; Pj Carson ; Crystal Ibanez ; Immanuel Trivedi ; Piter Hebert I. ; Lina Vickers S. ; Capri Mcmanus. ; Cris Jeffers Other Interventions: Discharge Summary Assessment (RN) Last Done: 07/30/22 17:46 Supervising Physician Co-Signing Physician Notes I personally examined the patient and verified all jacobson points of history and exam, discussed case, and agree with decision making with Dr Gomes. Still feeling palpitations. Discussed with cardiologyfor cardioversion. Completed today. Agree with discharge plan as noted above. Input greatly keila reciated. Vitals noted, in general she is awake and alert pleasant no distress. HEENT normocephalic atraumatic mucous membranes moist. Cardio: normal sinus ryhthm.. Breathing unlabored no accessory muscle use good effort. Skin shows no rashes no pallor or icterus. A. fib/RVRsinus after cardioversion. Discharge meds as above. otherwise as above
--- NOTE | 2022-07-30 22:26 | Electrocardiogram Report ---
Test Reason : Blood Pressure : / mmHG Vent. Rate : 128 BPM Atrial Rate : 136 BPM P-R Int : 000 ms QRS Dur : 086 ms QT Int : 318 ms P-R-T Axes : 000 051 035 degrees QTc Int : 464 ms Atrial fibrillation with rapid ventricular response with premature ventricular or aberrantly conducte d complexes Anterior infarct (cited on or before 28-JUL-2022) Abnormal ECG When compared with ECG of 24-JUL-2022 03:17, Atrial fibrillation has replaced Sinus rhythm Questionable change in initial forces of Anterior leads Confirmed by Andre Cadet ([id number]) on 07/30/2022 10:25:46 PM Referred By: REFERRED SELF Confirmed By:Andre Cadet
--- NOTE | 2022-08-01 06:22 | Electrocardiogram Report ---
Test Reason : Blood Pressure : / mmHG Vent. Rate : 084 BPM Atrial Rate : 084 BPM P-R Int : 174 ms QRS Dur : 088 ms QT Int : 406 ms P-R-T Axes : 085 031 056 degrees QTc Int : 479 ms Normal sinus rhythm Nonspecific ST abnormality Abnormal ECG When compared with ECG of 28-JUL-2022 08:32, Sinus rhythm has replaced Atrial fibrillation Vent. rate has decreased BY 44 BPM Criteria for Anterior infarct are no longer Present Non-specific change in ST segment in Inferior leads Confirmed by Andre Cadet ([id number]) on 08/01/2022 6:21:58 AM Referred By: REFERRED SELF Confirmed By:Andre Cadet
--- NOTE | 2022-08-02 17:42 | Billing Data ---
Date of Service July 30, 2022 Coding Level of Care Code 62794 OBS Care - Discharge
[2022-08-07] MEDS ORDERED: AMIODARONE 200 MG TAB PO SCH (17:00)
== END 2022-07-30 18:25 | disposition home or self-care (01) ==
LOC: EDINP 08:25 → ED 08:25 → SUATTDRO 12:54 → EDINP 17:39 → 2E 17:44

== ENCOUNTER 2024-04-21 09:42 | Inpatient (IN) ==
[2024-04-21 10:33] LABS: Basophils # (auto) 0.04 K/uL (0.00-0.20); Basophils % (auto) 0.6 %; Eosinophils # (auto) 0.07 K/uL (0.00-0.50); Hemoglobin 13.6 g/dl (12.0-16.0); Immature Granulocytes # (auto) 0.03 K/uL (0.01-0.20); Immature Granulocytes % (auto) 0.4 %; Lymphocytes # (auto) 1.11 K/uL (1.20-3.40); Mean Corpuscular Hemoglobin 32.5 pg (25.0-34.0); Mean Corpuscular Hgb Conc 36.8 g/dL (32.0-36.0); Mean Corpuscular Volume 88.3 fL (80.0-100.0); Mean Platelet Volume 10.6 fL (9.4-12.4); Monocytes # (auto) 0.89 K/uL (0.11-0.59); Monocytes % (auto) 12.8 %; Neutrophils % (auto) 69.2 %; Platelet Count 278 K/uL (130-400); RDW Coefficient of Variation 11.3 % (11.5-14.5); RDW Standard Deviation 36.2 fL (36.4-46.3); Red Blood Count 4.19 M/uL (4.20-5.40); White Blood Count 6.94 K/ul (4.8-10.8)
[2024-04-21 10:49] LABS: Albumin Globulin Ratio 1.7 (0.9-2); Albumin Level 4.8 gm/dl (3.4-5.0); BUN Creatinine Ratio 13.6 (10-20); Calcium 9.7 mg/dl (8.6-10.3); Creatinine Clr Calc Pharmacy 42.4 ml/min; Est GFR (African American) 51.2 ml/min; Est GFR (Non-African American) 44.1 ml/min; Globulin 2.9 gm/dl (2.5-4.0); Potassium 3.4 mmol/L (3.5-5.1); Total Protein 7.7 gm/dl (6.0-8.3)
[2024-04-21 10:55] LABS: Troponin I High Sensitivity 11.5 pg/ml (0-14)
[2024-04-21 10:58] LABS: Partial Thromboplastin Ratio 1.1; Partial Thromboplastin Time 29 Seconds (21-31); Prothrombin Time 10.5 Seconds (9.0-12.0)
--- NOTE | 2024-04-21 11:10 | XRay Report ---
XR chest 1V not portable CLINICAL HISTORY: Chest pain, nonspecific COMPARISON STUDY: Chest CT July 24, 2022. Chest radiograph November 08, 2022. FINDINGS: Lung volumes are normal. There is no consolidation. Linear bibasilar opacities represent at electasis or scarring. There is no pneumothorax or pleural effusion. Cardiomegaly is unchanged. Media stinal contours are normal. There is no evidence for pulmonary edema. IMPRESSION: No acute cardiopulmonary findings. ACT 112: Negative or not required by law. Electronically signed by: Joss Powell M.D. 04/21/2024 11:09 AM
--- NOTE | 2024-04-21 11:37 | Emergency Department Note ---
History of Present Illness General Chief Complaint: Cardiac Assessment Stated Complaint: WOOZY, JITTERY, THUMPING HEART, REF BY DOC Time Seen by Provider: 04/21/24 11:21 History of Present Illness Provider Complaint: + palpitations Onset (ago): week(s) (2) Duration: + Intermittent Arrhythmia history: + atrial fibrillation and + on anti-coagulants Associated symptoms: + shortness of breath (With exertion) and + other (Weakness fatigue); no chest pain, no nausea, no vomiting or no cough HPI narrative: Patient denies any headache, falls, trauma, abdominal pain. Home Medications Medication Instructions Recorded Confirmed Type cholecalciferol (vitamin D3) 25 1,000 units PO DAILY #90 caps 05/15/19 04/21/24 History mcg (1,000 unit) capsule multivitamin (Daily Multi-Vitamin 1 tab PO QAM 02/02/20 04/21/24 History tablet) mecobalamin (vitamin B12) 1,000 1,000 mcg sublingual DAILY 03/25/22 04/21/24 History mcg disintegrating tablet,sublingual omeprazole 40 mg capsule,delayed 40 mg PO QAM #90 caps 06/02/23 04/21/24 Rx release ibandronate 150 mg tablet 150 mg PO MONTHLY #12 tabs 07/13/23 04/21/24 Rx apixaban 5 mg tablet (Eliquis) 5 mg PO BID 90 days #180 tabs 11/01/23 04/21/24 Rx potassium chloride 20 mEq 20 meq PO DAILY #90 tabs 12/17/23 04/21/24 Rx tablet,extended release duloxetine 30 mg capsule,delayed 30 mg PO DAILY #90 caps 03/29/24 04/21/24 Rx release amiodarone 200 mg tablet 200 mg PO QAM 04/21/24 04/21/24 History amlodipine 5 mg tablet 5 mg PO QAM 04/21/24 04/21/24 History losartan 100 1 tab PO QAM 04/21/24 04/21/24 History mg-hydrochlorothiazide 25 mg tablet Allergies Allergy/AdvReac Type Severity Reaction Status Date / Time celecoxib Allergy Intermediate RASH Verified 03/29/24 08:29 levofloxacin Allergy Intermediate HIVES Verified 03/29/24 08:29 meperidine AdvReac Intermediate n/v Verified 03/29/24 08:29 sertraline AdvReac Mild Verified 03/29/24 08:29 Past Med/Surg History Problem List (Updated 04/21/24 @ 11:37 by Brian Trivedi MD) Acute hyponatremia (Acute) Anxiety and depression On amiodarone therapy Acute dehydration (Acute) Diarrhea (Acute) Acute dyspnea (Acute) Anticoagulant long-term use Constipation Hypoxemia (Acute) Paroxysmal atrial fibrillation Acid reflux disease Heart palpitations (Acute) Lightheadedness (Acute) Insomnia Osteoporosis Mitral regurgitation Left ventricular hypertrophy Allergic rhinitis Hypokalemia Hypomagnesemia Carpal tunnel syndrome of right wrist Numbness and tingling of both upper extremities Vitamin D deficiency Hypertension (Acute) Fibromyalgia (Acute) Medical History History of femur fracture (~2020) left hip Atrial fibrillation with RVR Family history of colon cancer in father Chest pain Community acquired pneumonia History of wrist fracture Left History of compression fracture of spine thoracic History of diverticulitis History of hyperthyroidism Atrial fibrillation on eliquis - follows with Dr. Martínez Rivera Surgical History History of carpal tunnel surgery of left wrist 10-21-21 Dr Marin, [facility] History of hemorrhoidectomy History of open reduction and internal fixation (ORIF) procedure Lt femur H/O tubal ligation H/O oral surgery Hx of cholecystectomy S/P colon resection 2/2 diverticular disease S/P tonsillectomy Hx of appendectomy Family History Mother Breast cancer Hypertension Father Prostate cancer Colorectal cancer Hypertension Other No family history of adverse response to anesthesia Denies family history of Ovarian cancer Diabetes Myocardial infarction Social History Smoking Status: Never smoker Second Hand Exposure: No; Do You Dip or Chew Tobacco: No; Hx Alcohol Use: No Hx Substance Use: No Preferred Language: Romanian Communication Ability: Effective Visual Impairment: Limited Hearing Ability: Normal Separator Operator Required: No Beliefs That Will Affect Care: None marital status: Current Living Situation: Spouse current occupational status: retired How many Children do You have: 2 Feels Safe at Home: Yes Childhood Exposure to Second-Hand Smoke: Yes Diet: regular caffeine: Yes (coffee) during the past year weight has: remained stable Dental Care, Regularly: No Physical Activity Frequency: 3-4 Times per Week Seatbelt Use: always Sunscreen Use: No Do you think of yourself as: straight/heterosexual Sexual Activity: has been sexually active, but not for at least 12 months Gender Identity: Female Assistive Devices: Denture - Upper, Denture - Lower and Glasses Physical Exam 2 Vital Signs: Vital Signs - 24 hr 04/21/24 09:51 04/21/24 12:00 Temperature 36.6 C Temperature Source Temporal Artery Sc an Pulse Rate 83 Pulse Rate [Apical ] 74 Respiratory Rate 21 18 Respiratory Effort / Characteristics Non-Labored Respiratory Depth Normal Blood Pressure 147/70 H Blood Pressure [Ri ght Arm] 181/68 H Blood Pressure Katrin n 95 Blood Pressure Katrin n [Right Arm] 105 Pulse Oximetry 98 98 Oxygen Delivery Me thod Room Air Room Air Sepsis Recent Feve r Within 48 Hours No Sepsis New/Unexpla ined Change in Men fartun Status N/A Sepsis Action Take n by Nursing No Action Required Physical Exam: Physical Exam GENERAL: oriented to person, place, and time. appears well-developed and well- nourished. HENT: Exam performed. - Head: Normocephalic and atraumatic. EYES: Conjunctivae and EOM are normal. Right eye exhibits no discharge. Left eye exhibits no discharge. No scleral icterus. NECK: Normal range of motion. Neck supple. No JVD present. CV: Normal rate, regular rhythm, normal heart sounds and intact distal pulses. There is no peripheral edema. Palpable radial pulses bue. PULM/CHEST: Effort normal and breath sounds normal. No respiratory distress. No stridor. no wheezes. no rales. ABD: The abdomen is soft. There is no tenderness. NEURO: Motor and sensation grossly intact. SKIN: Skin is warm and dry. He is not diaphoretic. PSYCH: normal mood and affect. Behavior is normal. Judgment and thought content normal. Course Course 1121: The patient was evaluated in room A2. A complete history and physical exam was performed Cardiac monitoring: An order was placed for continuous cardiac monitoring. The monitor shows a rate of 80 with sinus rhythm interpreted by me Patient was seen during a time of extreme volume and extreme acuity. Nursing triage protocols were initiated labs and imaging was conducted by protocol in the triage area. Imaging unremarkable. Labs are significant for a sodium of 125. Patient denies any seizures, no focal neurological deficits. Patient will be started on IV hydration with normal saline. No need for hypertonic saline at this time. [facility] team will be notified. Administered Medications Sodium Chloride (Nss) 1,000 mls @ 125 mls/hr IV .Q8H BRANDYN Stop: 05/21/24 11:29 Last Admin: 04/21/24 12:08 Dose: 125 mls/hr Documented By: NRB Discontinued Medications Aspirin (Aspirin Chew 324 Mg) 324 mg PO NOW STA Stop: 04/21/24 11:22 Last Admin: 04/21/24 12:08 Dose: 324 mg Documented By: POLLY Medical Decision Making Medical Records Attestation: I reviewed the patient's medical records. External medical records reviewed. Patient has no history of significant hyponatremia in the past. Laboratory Data Attestation: I reviewed the patient's lab results. 04/21/24 10:10 04/21/24 10:10 Lab Results 04/21/24 Range/Units 10:10 WBC 6.94 (4.8-10.8) K/ul RBC 4.19 L (4.20-5.40) M/uL Hgb 13.6 (12.0-16.0) g/dl Hct 37.0 (37.0-47.0) % MCV 88.3 (80.0-100.0) fL MCH 32.5 (25.0-34.0) pg MCHC 36.8 H (32.0-36.0) g/dL RDW Std Deviation 36.2 L (36.4-46.3) fL RDW Coeff of Manju 11.3 L (11.5-14.5) % Plt Count 278 (130-400) K/uL MPV 10.6 (9.4-12.4) fL Immature Gran % (Auto) 0.4 % Neut % (Auto) 69.2 % Lymph % (Auto) 16.0 % [place] % (Auto) 12.8 % Eos % (Auto) 1.0 % Baso % (Auto) 0.6 % Neut # (Auto) 4.80 (1.40-6.50) K/uL Lymph # (Auto) 1.11 L (1.20-3.40) K/uL [place] # (Auto) 0.89 H (0.11-0.59) K/uL Eos # (Auto) 0.07 (0.00-0.50) K/uL Baso # (Auto) 0.04 (0.00-0.20) K/uL Immature Gran # (Auto) 0.03 (0.01-0.20) K/uL PT 10.5 (9.0-12.0) Seconds INR 1.0 (0.9-1.1) APTT 29 (21-31) Seconds PTT Ratio 1.1 Sodium 125 L (136-145) mmol/L Potassium 3.4 L (3.5-5.1) mmol/L Chloride 86 L (98-107) mmol/L Carbon Dioxide 30 (21-32) mmol/L Anion Gap 9 (3-11) BUN 16 (6-23) mg/dl Creatinine 1.18 (0.6-1.2) mg/dl Est Cr Clr Drug Dosing 42.4 ml/min Est GFR ( Amer) 51.2 ml/min Est GFR (Non-Af Amer) 44.1 ml/min BUN/Creatinine Ratio 13.6 (10-20) Glucose 111 H (70-99(Fasting)) mg/dl Calcium 9.7 (8.6-10.3) mg/dl Total Bilirubin 1.0 (0.2-1.0) mg/dl AST 27 (13-39) U/L ALT 20 (7-52) U/L Alkaline Phosphatase 50 (34-104) U/L Troponin I High Sens 11.5 (0-14) pg/ml Total Protein 7.7 (6.0-8.3) gm/dl Albumin 4.8 (3.4-5.0) gm/dl Globulin 2.9 (2.5-4.0) gm/dl Albumin/Globulin Ratio 1.7 (0.9-2) Imaging Data Attestation: I personally reviewed and interpreted this imaging study as follows: My Impression: Chest x-ray negative. Airway clear. No pneumothorax. No consolidation. No cardiomegaly or cephalization.. No free air under the diaphragm. No fractures of the skeletal structures. Radiologist's Impression: Chest X-Ray 04/21/24 09:56 XR chest 1V not portable CLINICAL HISTORY: Chest pain, nonspecific COMPARISON STUDY: Chest CT July 24, 2022. Chest radiograph November 08, 2022. FINDINGS: Lung volumes are normal. There is no consolidation. Linear bibasilar opacities represent atelectasis or scarring. There is no pneumothorax or pleural effusion. Cardiomegaly is unchanged. Mediastinal contours are normal. There is no evidence for pulmonary edema. IMPRESSION: No acute cardiopulmonary findings. ACT 112: Negative or not required by law. Electronically signed by: Joss Powell M.D. 04/21/2024 11:09 AM ECG Data Attestation: I personally reviewed and interpreted this ECG as follows: Indication: palpitations Rate (beats per minute): 80 Rhythm: normal sinus Findings: no ST depression, no ST elevation or no prolonged QT MDM Narrative The patient was evaluated in room A2. A complete history and physical exam was performed Cardiac monitoring: An order was placed for continuous cardiac monitoring. The monitor shows a rate of 80 with sinus rhythm interpreted by me Patient was seen during a time of extreme volume and extreme acuity. Nursing triage protocols were initiated labs and imaging was conducted by protocol in the triage area. Imaging unremarkable. Labs are significant for a sodium of 125. Patient denies any seizures, no focal neurological deficits. Patient will be started on IV hydration with normal saline. No need for hypertonic saline at this time. Patient will be admitted to the [facility] hospitalist team. Dr. Rocha team will be notified. Impression & Plan Heart palpitations, Acute hyponatremia Discharge Plan Visit Data Chief Complaint: Cardiac Assessment Stated Complaint: WOOZY, JITTERY, THUMPING HEART, REF BY DOC ED Provider: Brian Trivedi Discharge Problem: Heart palpitations, Acute hyponatremia Patient Disposition: Being Evaluated by Hospitalist Forms Stand Alone Forms: My [facility] Prescriptions Prescriptions: No Action omeprazole 40 mg capsule,delayed release(DR/EC) 40 mg PO QAM Qty: 90 3RF ibandronate 150 mg tablet 150 mg PO MONTHLY Qty: 12 0RF Rx Instructions: TAKES ON THE OF THE MONTH. Eliquis 5 mg tablet 5 mg PO BID 90 Days Qty: 180 3RF potassium chloride 20 mEq tablet extended release 20 meq PO DAILY Qty: 90 3RF cholecalciferol (vitamin D3) 1,000 unit capsule 1,000 units PO DAILY Qty: 90 multivitamin [Daily Multi-Vitamin] Tablet 1 tab PO QAM mecobalamin (vitamin B12) 1,000 mcg tablet,disintegrating 1,000 mcg sublingual DAILY Rx Instructions: place tablet under tongue and allow to dissolve for at least30 secs before swallowing duloxetine 30 mg capsule,delayed release(DR/EC) 30 mg PO DAILY Qty: 90 3RF amiodarone 200 mg tablet 200 mg PO QAM Rx Instructions: Take 1 tablet by mouth every day. amlodipine 5 mg tablet 5 mg PO QAM losartan-hydrochlorothiazide 100-25 mg tablet 1 tab PO QAM Referrals Referrals: Tyrese Morrell DO [Primary Care Provider] -
[2024-04-21] MEDS: ASPIRIN CHEW 324 MG PO STA (12:08)
[2024-04-21] MEDS: SODIUM CHLORIDE 0.9% 1,000 ML IV SCH (12:08)
--- NOTE | 2024-04-21 12:30 | History & Physical Report ---
Date of Service April 21, 2024 Assessment & Plan (1) Acute hyponatremia: Plan: NA 125 on arrival Chronic; however, has never been this low before [facility] labs ordered, pending Hypochloremic at 86 NSS at 125mL/hr x 2L Patient recently started on Cymbalta 3 weeks ago; hold for now A.m. CBC, BMP, Mag, troponin (2) Heart palpitations: Plan: Worsening heart palpitations (exertional) x 2 weeks No episodes of chest pain; patient is chest pain free both with exertion and at rest EKG without acute changes Troponin WNL at 11.5 on arrival TSH WNL While patient denies chest pain, does note middle back pain She believes this may be secondary to her history of thoracic compression fracture No recent injuries/fall/trauma to the chest wall Continuous telemetry monitoring Pending cardiac monitoring overnight, can consider stress echo or outpatient Holter monitor (3) Hypokalemia: Plan: Mild; K 3.4 Continue daily potassium supplementation Recheck a.m. K (4) Paroxysmal atrial fibrillation: Plan: Continue Eliquis, amiodarone, metoprolol (5) Hypertension: Plan: Continue losartan, but hold HCTZ component in the setting of fluid resuscitation/hypokalemia Continue amlodipine (6) History of compression fracture of spine: Plan: ?Contributory Plan Disposition: Admit to [facility] telemetry Full code Heart healthy diet VTE PPx: On Eliquis History of Present Illness Chief Complaint: Cardiac assessment Primary Care Provider: Tyrese Morrell DO Crystal is a pleasant 79-year-old female with PMH of HTN, fibromyalgia, mitral regurgitation, osteoporosis, paroxysmal atrial fibrillation (on Eliquis and amiodarone), heart palpitations, acid reflux, anxiety, and depression. She presented on 04/21 for worsening heart palpitations with exertion x 2 weeks. She is not sure if it has occurred at rest; believes that she was having anxiety in bed this morning (rather than palpitations). Palpitations always occur with exertion and can lasts for a couple minutes at a time. They are always alleviated when the patient rests (within a couple minutes). Her last episode of palpitations was this morning prior to coming into the hospital. These episodes of chest palpitations are increasing in frequency, to the point where they become a daily occurrence (common with walking). She denies any chest pain, but does note that she is having thoracic back pain whenever the palpitations occur. She does have history of a thoracic compression fracture; denies any recent falls or injuries/trauma to the chest wall. Associated sy mptom includes shortness of breath when the exertion and chest palpitations come on. Patient took her regular morning medications BP medications this morning, but she is unsure if she took her Eliquis. Only recent change in medications is that she was started on Cymbalta 3 weeks ago. Patient denies smoking, tobacco use, or recent alcohol use. No recent change in diet, but she does report a dec rease in appetite recently. She has a history of atrial fibrillation for which she was cardioverted 2 years ago and is currently taking amiodarone. No history of thyroid issues. Patient reports she is chest pain-free at time of admission. No SOB at rest. Patient is hypertensive at 181 over a 68 at time of admission; vitals otherwise stable. ED course: NSS at 125mL/hr ROS: Patient endorses chest palpitations mainly with exertion, cold intolerance, back pain with exertion, SOB with exertion, lightheadedness, N/V/D (occurred 2 weeks ago; resolved) and burning in the hands and feet (which patient attributes to her fibromyalgia; chronic but worse over the past 2 weeks). Patient denies fever, dizziness, headache, changes in vision, chest pain at rest or with exertion, pleuritic CP, cough, hemoptysis, abdominal pain, burning with urination, dysuria, blood in the urine or stool, or changes in urinary or bowel habits. Allergies Allergy/AdvReac Type Severity Reaction Status Date / Time celecoxib Allergy Intermediate RASH Verified 03/29/24 08:29 levofloxacin Allergy Intermediate HIVES Verified 03/29/24 08:29 meperidine AdvReac Intermediate n/v Verified 03/29/24 08:29 sertraline AdvReac Mild Verified 03/29/24 08:29 Home Medications Medication Instructions Recorded Confirmed Type cholecalciferol (vitamin D3) 25 1,000 units PO DAILY #90 caps 05/15/19 04/21/24 History mcg (1,000 unit) capsule multivitamin (Daily Multi-Vitamin 1 tab PO QAM 02/02/20 04/21/24 History tablet) mecobalamin (vitamin B12) 1,000 1,000 mcg sublingual DAILY 03/25/22 04/21/24 History mcg disintegrating tablet,sublingual omeprazole 40 mg capsule,delayed 40 mg PO QAM #90 caps 06/02/23 04/21/24 Rx release ibandronate 150 mg tablet 150 mg PO MONTHLY #12 tabs 07/13/23 04/21/24 Rx apixaban 5 mg tablet (Eliquis) 5 mg PO BID 90 days #180 tabs 11/01/23 04/21/24 Rx potassium chloride 20 mEq 20 meq PO DAILY #90 tabs 12/17/23 04/21/24 Rx tablet,extended release duloxetine 30 mg capsule,delayed 30 mg PO DAILY #90 caps 03/29/24 04/21/24 Rx release amiodarone 200 mg tablet 200 mg PO QAM 04/21/24 04/21/24 History amlodipine 5 mg tablet 5 mg PO QAM 04/21/24 04/21/24 History losartan 100 1 tab PO QAM 04/21/24 04/21/24 History mg-hydrochlorothiazide 25 mg tablet Past Med/Surg History Problem List (Updated 04/21/24 @ 13:23 by Immanuel Mascorro PA-C) History of compression fracture of spine thoracic Acute hyponatremia (Acute) Anxiety and depression On amiodarone therapy Acute dehydration (Acute) Diarrhea (Acute) Acute dyspnea (Acute) Anticoagulant long-term use Constipation Hypoxemia (Acute) Paroxysmal atrial fibrillation Acid reflux disease Heart palpitations (Acute) Lightheadedness (Acute) Insomnia Osteoporosis Mitral regurgitation Left ventricular hypertrophy Allergic rhinitis Hypokalemia Hypomagnesemia Carpal tunnel syndrome of right wrist Numbness and tingling of both upper extremities Vitamin D deficiency Hypertension (Acute) Fibromyalgia (Acute) Medical History History of femur fracture (~2020) left hip Atrial fibrillation with RVR Family history of colon cancer in father Chest pain Community acquired pneumonia History of wrist fracture Left History of compression fracture of spine thoracic History of diverticulitis History of hyperthyroidism Atrial fibrillation on eliquis - follows with Dr. Martínez Rivera Surgical History History of carpal tunnel surgery of left wrist 10-21-21 Dr Marin, [facility] History of hemorrhoidectomy History of open reduction and internal fixation (ORIF) procedure Lt femur H/O tubal ligation H/O oral surgery Hx of cholecystectomy S/P colon resection 2/2 diverticular disease S/P tonsillectomy Hx of appendectomy Family History Mother Breast cancer Hypertension Father Prostate cancer Colorectal cancer Hypertension Other No family history of adverse response to anesthesia Denies family history of Ovarian cancer Diabetes Myocardial infarction Social History Smoking Status: Never smoker Second Hand Exposure: No; Do You Dip or Chew Tobacco: No; Hx Alcohol Use: No Hx Substance Use: No Preferred Language: Telugu Communication Ability: Effective Visual Impairment: Limited Hearing Ability: Normal Location Man Required: No Beliefs That Will Affect Care: None marital status: Current Living Situation: Spouse current occupational status: retired How many Children do You have: 2 Other Information That Helps Us Care for You: No Feels Safe at Home: Yes Safety Concerns: Feels Safe At This Time Childhood Exposure to Second-Hand Smoke: Yes Diet: regular caffeine: Yes (coffee) during the past year weight has: remained stable Dental Care, Regularly: No Physical Activity Frequency: 3-4 Times per Week Seatbelt Use: always Sunscreen Use: No Do you think of yourself as: straight/heterosexual Sexual Activity: has been sexually active, but not for at least 12 months Gender Identity: Female Assistive Devices: Denture - Upper, Denture - Lower and Glasses Review of Systems Review of Systems: See HPI above Physical Exam Physical Exam: General: no acute distress; pleasant affect; non-toxic appearing; frail appearing; cooperative; SpO2 98% on RA HEENT: normocephalic, atraumatic; no scleral icterus; PERRLA; vision and hearing grossly intact Neck: supple; no lymphadenopathy; trachea midline Skin: warm, dry without signs of tenting; no cyanosis; no rashes, bruising, lesions, or erythema noted CV: chest wall NTP; RRR; S1/S2 normal; no murmurs/rubs/gallops; pulses intact and symmetric at radial, DP, and PT Lungs: no acute respiratory distress; symmetrical chest wall expansion; clear breath sounds across all lung jackson w/o adventitious sounds; no wheezing ABD: Soft, NTP; BS present; no rebound/guarding; no distention; no rashes or bruising on the abdomen or back Back: Upper and lower spine are NTP MSK: no tics or fasciculations; no edema noted in the LEs b/l, nonerythematous Neuro: A&Ox3; normal mood and affect; fluent speech; no focal deficits; sensation intact and symmetric in the LEs b/l Results & Data Results & Data Vital Signs (Past 12 Hours) Vital Signs Temp Pulse Pulse Resp BP BP Pulse Ox 04/21/24 12:00 74 18 181/68 H 98 04/21/24 09:51 36.6 C 83 21 147/70 H 98 O2 Del Method 04/21/24 12:00 Room Air 04/21/24 09:51 Room Air Laboratory Results Abnormal lab results 04/21/24 Range/Units 10:10 RBC 4.19 L (4.20-5.40) M/uL MCHC 36.8 H (32.0-36.0) g/dL RDW Std Deviation 36.2 L (36.4-46.3) fL RDW Coeff of Manju 11.3 L (11.5-14.5) % Lymph # (Auto) 1.11 L (1.20-3.40) K/uL Tama # (Auto) 0.89 H (0.11-0.59) K/uL Sodium 125 L (136-145) mmol/L Potassium 3.4 L (3.5-5.1) mmol/L Chloride 86 L (98-107) mmol/L Glucose 111 H (70-99(Fasting)) mg/dl Diagnostic Findings Chest X-Ray 04/21/24 09:56 XR chest 1V not portable CLINICAL HISTORY: Chest pain, nonspecific COMPARISON STUDY: Chest CT July 24, 2022. Chest radiograph November 08, 2022. FINDINGS: Lung volumes are normal. There is no consolidation. Linear bibasilar opacities represent atelectasis or scarring. There is no pneumothorax or pleural effusion. Cardiomegaly is unchanged. Mediastinal contours are normal. There is no evidence for pulmonary edema. IMPRESSION: No acute cardiopulmonary findings. ACT 112: Negative or not required by law. Electronically signed by: Joss Powell M.D. 04/21/2024 11:09 AM ECG Additional Comments: ECG revealed NSR at 80 bpm; QTc 461 Code Status & VTE Plan Code Status Full code VTE Prophylaxis Plan VTE Prophylaxis will be ordered: Yes Supervising Physician Co-Signing Physician Notes Patient seen and examined, chart reviewed, case discussed with Immanuel Mascorro PA-C and I agree with the assessment and plan as above except as otherwise noted Labs and images reviewed Hx fibromyalgia, pAfib on Eliquis/Amio, GERD who presents with worsening palpitations associated with dyspnea. She is hyponatremic on admission. NO urinary sx. +pain with hx of thoracic compression fxr. NO recent falls/trauma. Denies chest pain. EKG nsr. top is normal. Symptoms are associated with exertion, consistently improved with rest and have never occurred at rest. Notes that these palpitations which she thinks may be anxiety; however they have been associated with some shortness of breath. They have not occurred at rest per patient. Will follow overnight and monitor for PVCs/PACs/arrhythmia; given exertional symptoms associated with shortness of breath if no abnormalities are seen may benefit from follow-up nuclear eval. Agree with above. PG Care Time/CCT Total # of Minutes Spent Total Time Spent with Patient: Total time spent is greater than 50% in coordination of care (as documented) at patient's floor/unit and/or counseling patient: [place] [address] INT INP/OBS CARE 3/75MIN Patient Type Established History Comprehensive Exam Comprehensive Medical Decision Making High Complexity Diagnoses Acute hyponatremia E87.1 Heart palpitations R00.2 Hypokalemia E87.6 Paroxysmal atrial fibrillation I48.0 Hypertension I10 History of compression fracture of spine Z87.81
[2024-04-21 13:36] LABS: Thyroid Stimulating Hormone 2.56 uIu/ml (0.300-4.500)
--- NOTE | 2024-04-21 14:02 | Electrocardiogram Report ---
Test Reason : Blood Pressure : */* mmHG Vent. Rate : 80 BPM Atrial Rate : 80 BPM P-R Int : 174 ms QRS Dur : 102 ms QT Int : 400 ms P-R-T Axes : 96 56 84 degrees QTcB Int : 461 ms Normal sinus rhythm Normal ECG When compared with ECG of 08-Nov-2022 08:25, T wave amplitude has decreased in Lateral leads Confirmed by Tin Soliz ([id number]) on 04/21/2024 2:02:27 PM Referred By: Confirmed By: Tin Soliz
[2024-04-21 14:32] LABS: Magnesium 1.8 mg/dl (1.7-2.4)
[2024-04-21] MEDS ORDERED: ACETAMINOPHEN 325 MG TAB PO PRN (14:32)
[2024-04-21 16:31] LABS: Calcium 9.3 mg/dl (8.6-10.3); Potassium 3.6 mmol/L (3.5-5.1)
[2024-04-21 16:36] LABS: BUN Creatinine Ratio 15.5 (10-20); Creatinine Clr Calc Pharmacy 45.8 ml/min; Est GFR (African American) 55.7 ml/min; Est GFR (Non-African American) 48.1 ml/min
[2024-04-21] MEDS: APIXABAN 5 MG TABLET PO SCH (20:24)
[2024-04-22 06:29] LABS: Basophils # (auto) 0.03 K/uL (0.00-0.20); Basophils % (auto) 0.5 %; Eosinophils # (auto) 0.08 K/uL (0.00-0.50); Eosinophils % (auto) 1.3 %; Hematocrit (blood only) 34.5 % (37.0-47.0); Hemoglobin 12.3 g/dl (12.0-16.0); Immature Granulocytes # (auto) 0.03 K/uL (0.01-0.20); Immature Granulocytes % (auto) 0.5 %; Lymphocytes # (auto) 1.09 K/uL (1.20-3.40); Lymphocytes % (auto) 17.5 %; Mean Corpuscular Hemoglobin 32.2 pg (25.0-34.0); Mean Corpuscular Hgb Conc 35.7 g/dL (32.0-36.0); Mean Corpuscular Volume 90.3 fL (80.0-100.0); Mean Platelet Volume 10.7 fL (9.4-12.4); Monocytes # (auto) 0.93 K/uL (0.11-0.59); Neutrophils # (auto) 4.06 K/uL (1.40-6.50); Neutrophils % (auto) 65.2 %; Platelet Count 217 K/uL (130-400); RDW Coefficient of Variation 11.4 % (11.5-14.5); Red Blood Count 3.82 M/uL (4.20-5.40); White Blood Count 6.22 K/ul (4.8-10.8)
[2024-04-22 06:47] LABS: Calcium 8.7 mg/dl (8.6-10.3); Creatinine Clr Calc Pharmacy 58.4 ml/min; Est GFR (Non-African American) 64.7 ml/min; Magnesium 1.6 mg/dl (1.7-2.4); Potassium 3.3 mmol/L (3.5-5.1)
[2024-04-22 06:53] LABS: Troponin I High Sensitivity 10.4 pg/ml (0-14)
[2024-04-22] MEDS: PANTOprazole 40 MG TAB PO SCH (09:26)
[2024-04-22] MEDS: AMIODARONE 200 MG TAB PO SCH (09:28)
[2024-04-22] MEDS: amLODIPine BESYLATE 5 MG TAB PO SCH (09:28)
[2024-04-22] MEDS: LOSARTAN POTASSIUM 50 MG TAB PO SCH (09:29)
[2024-04-22] MEDS: POTASSIUM CHLORIDE CRTAB 20 MEQ TABCR PO SCH (09:34)
[2024-04-22] MEDS: POTASSIUM CHLORIDE CRTAB 20 MEQ TABCR PO STA (10:56)
[2024-04-22] MEDS: MAGNESIUM OXIDE 400 MG TAB PO ONE (11:34)
--- NOTE | 2024-04-22 16:20 | Hospitalist Progress Note ---
Date of Service April 22, 2024 Assessment & Plan (1) Heart palpitations: Plan: Worsening heart palpitations (exertional) x 2 weeks prior to admission - No episodes of chest pain; patient is chest pain free both with exertion and at rest - EKG without acute changes, Troponin WNL, TSH WNL - While patient denies chest pain, does note middle back pain > She believes this may be secondary to her history of thoracic compression fracture - No recent injuries/fall/trauma to the chest wall - Telemetry monitoring overnight shows NSR in 70s - Recommend outpatient cardiology follow-up. Could consider outpatient Holter monitor if palpitations return/continue. (2) Acute hyponatremia: Plan: Na 125 on arrival - Chronic; however, has never been this low before - Hypochloremic at 86 - Na improved to 130 after receiving 2L IVF. Suspect hyponatremia secondary to volume depletion > Repeat urine osmolality low. This is appropriate; no need for fluid restriction or salt tablets. - Patient recently started on Cymbalta 3 weeks ago; hold for now - Recommend discontinuation of HCTZ on discharge (3) Hypokalemia: Plan: Mild; K 3.4 - repleted Continue daily potassium supplementation (4) Paroxysmal atrial fibrillation: Plan: Continue Eliquis, amiodarone, metoprolol (5) Hypertension: Plan: Continue losartan, but hold HCTZ component in the setting of fluid resuscitation/hypokalemia > Recommend discontinuation of HCTZ on discharge. Continue amlodipine Plan Repleted potassium Repleted magnesium Ordered melatonin Reviewed overnight telemetry monitoring VTE PPx: On Eliquis CODE STATUS: Full code Admission and Anticipated Discharge Date Admission Date: April 21, 2024 Supervising Physician Co-Signing Physician Notes Attending Attestation - Chart reviewed, care plan d/w SHAUN Smiley. I agree w/ the jacobson components of her documentation. In light of chronic hyponatremia would ask patient not to resume HCTZ at discharge. Labs in am. Jad Powers MD Subjective Patient seen and evaluated at bedside. She reports that she feels better today, only reporting generalized weakness. She does note that she slept poorly last night. She denies any heart palpitations, chest pain, or dizziness at this time. We discussed that her telemetry monitoring overnight showed normal sinus rhythm in the 70s. We discussed that her hyponatremia was likely due to volume depletion, as her sodium improved after receiving IV fluids. Patient is hopeful for discharge tomorrow. No additional complaints or concerns at this time. Physical Exam Physical Exam: General: No acute distress, nondiaphoretic, well-developed, well-nourished. Skin: The skin was without rashes, erythema, edema, or bruising. Cardiac: Regular rate and rhythm without murmurs gallops or rubs. Pulm: Clear to auscultation bilaterally without wheezes, rales or rhonchi. No respiratory distress. 95% on room air. Abdominal: Soft, nontender, nondistended. Bowel sounds present. Neuro: A&O x3. No focal neurological deficits. Results & Data Results & Data Vital Signs (Past 12 Hours) Vital Signs Temp Pulse Pulse Resp BP Pulse Ox O2 Del Method 04/22/24 15:28 98.1 F 74 16 131/71 95 Room Air 04/22/24 14:25 78 04/22/24 11:43 97.7 F 81 16 152/68 H 96 Room Air 04/22/24 08:27 Room Air 04/22/24 07:42 98.4 F 79 16 146/55 H 98 Room Air 04/22/24 07:30 71 Laboratory Results Reviewed CBC Reviewed chemistries Reviewed urine studies PG Care Time/CCT Total # of Minutes Spent Total Time Spent with Patient: Total time spent is greater than 50% in coordination of care (as documented) at patient's floor/unit and/or counseling patient: Coding Level of Care Code 84567 SUB INP/OBS CARE 3/50MIN Diagnoses Heart palpitations R00.2 Acute hyponatremia E87.1 Hypokalemia E87.6 Paroxysmal atrial fibrillation I48.0 Hypertension I10
[2024-04-22] MEDS: MELATONIN 3 MG TAB PO SCH (20:38)
[2024-04-23 07:36] LABS: Basophils # (auto) 0.04 K/uL (0.00-0.20); Basophils % (auto) 0.6 %; Eosinophils # (auto) 0.13 K/uL (0.00-0.50); Eosinophils % (auto) 1.9 %; Hematocrit (blood only) 33.5 % (37.0-47.0); Hemoglobin 12.2 g/dl (12.0-16.0); Immature Granulocytes # (auto) 0.02 K/uL (0.01-0.20); Immature Granulocytes % (auto) 0.3 %; Lymphocytes # (auto) 1.06 K/uL (1.20-3.40); Lymphocytes % (auto) 15.5 %; Mean Corpuscular Hemoglobin 32.4 pg (25.0-34.0); Mean Corpuscular Hgb Conc 36.4 g/dL (32.0-36.0); Mean Corpuscular Volume 89.1 fL (80.0-100.0); Mean Platelet Volume 10.6 fL (9.4-12.4); Monocytes # (auto) 1.02 K/uL (0.11-0.59); Monocytes % (auto) 14.9 %; Neutrophils # (auto) 4.56 K/uL (1.40-6.50); Neutrophils % (auto) 66.8 %; Platelet Count 220 K/uL (130-400); RDW Coefficient of Variation 11.3 % (11.5-14.5); RDW Standard Deviation 36.9 fL (36.4-46.3); Red Blood Count 3.76 M/uL (4.20-5.40); White Blood Count 6.83 K/ul (4.8-10.8)
[2024-04-23 07:48] LABS: BUN Creatinine Ratio 14.9 (10-20); Calcium 9.1 mg/dl (8.6-10.3); Creatinine Clr Calc Pharmacy 67.5 ml/min; Est GFR (African American) 89.9 ml/min; Est GFR (Non-African American) 77.6 ml/min; Magnesium 1.6 mg/dl (1.7-2.4); Potassium 3.7 mmol/L (3.5-5.1)
[2024-04-23 07:58] VITALS: RESP 16
--- NOTE | 2024-04-23 10:28 | Discharge Summary ---
Discharge Summary Date of Service April 23, 2024 Principal Dx & Hospital Course #1 = Principal Diagnosis (1) Heart palpitations: Worsening heart palpitations (exertional) x 2 weeks prior to admission - No episodes of chest pain; patient is chest pain free both with exertion and at rest - EKG without acute changes, Troponin WNL, TSH WNL - While patient denied chest pain, did note middle back pain > She believes this may be secondary to her history of thoracic compression fracture - No recent injuries/fall/trauma to the chest wall - Telemetry monitoring showed NSR in 70s during hospitalization. - Recommend outpatient cardiology follow-up. Could consider outpatient Holter monitor if palpitations return/continue. - Did discontinue combo Losartan/HCTZ and prescribed Losartan 100 mg daily on discharge. (2) Acute hyponatremia: Na 125 on arrival - Chronic; however, had never been this low before - Hypochloremic at 86 - Na improved to 130 after receiving 2L IVF. Suspect hyponatremia secondary to volume depletion > Repeat urine osmolality low. This is appropriate; no need for fluid restriction or salt tablets. - Patient recently started on Cymbalta 3 weeks ago; held while hospitalized and resumed on discharge. (3) Hypokalemia: Mild; K 3.4 - repleted Continue daily potassium supplementation (4) Paroxysmal atrial fibrillation: Continue Eliquis, amiodarone, metoprolol (5) Hypertension: Continue amlodipine Continue losartan 100 mg daily, but HCTZ component discontinued during this hospitalization due to electrolyte abnormalities. Plan VTE PPx: On Eliquis CODE STATUS: Full code Notes For Next Care Provider Patient presented with exertional heart palpitations x 2 weeks prior to admission. EKG without acute changes, troponin normal, TSH normal. Telemetry monitoring showed NSR in 70s throughout hospitalization. Patient with acute hyponatremia, hypokalemia, hypomagnesemia on admission. Sodium improved after IV fluids, potassium and magnesium repleted. Recommend outpatient cardiology follow-up with Dr. Soliz. Recommend PCP follow-up in 1-2 weeks. Medication Changes From Visit Combo losartan/HCTZ discontinued due to electrolyte abnormalities and prescribed losartan 100 mg daily on discharge. Admission HPI Per Admitting Provider Crystal is a pleasant 79-year-old female with PMH of HTN, fibromyalgia, mitral regurgitation, osteoporosis, paroxysmal atrial fibrillation (on Eliquis and amiodarone), heart palpitations, acid reflux, anxiety, and depression. She presented on 04/21 for worsening heart palpitations with exertion x 2 weeks. She is not sure if it has occurred at rest; believes that she was having anxiety in bed this morning (rather than palpitations). Palpitations always occur with exertion and can lasts for a couple minutes at a time. They are always alleviated when the patient rests (within a couple minutes). Her last episode of palpitations was this morning prior to coming into the hospital. These episodes of chest palpitations are increasing in frequency, to the point where they become a daily occurrence (common with walking). She denies any chest pain, but does note that she is having thoracic back pain whenever the palpitations occur. She does have history of a thoracic compression fracture; denies any recent falls or injuries/trauma to the chest wall. Associated symptom includes shortness of breath when the exertion and chest palpitations come on. Patient took her regular morning medications BP medications this morning, but she is unsure if she took her Eliquis. Only recent change in medications is that she was started on Cymbalta 3 weeks ago. Patient denies smoking, tobacco use, or recent alcohol use. No recent change in diet, but she does report a decrease in appetite recently. She has a history of atrial fibrillation for which she was cardioverted 2 years ago and is currently taking amiodarone. No history of thyroid issues. Patient reports she is chest pain- free at time of admission. No SOB at rest. Patient is hypertensive at 181 over a 68 at time of admission; vitals otherwise stable. ED course: NSS at 125mL/hr ROS: Patient endorses chest palpitations mainly with exertion, cold intolerance, back pain with exertion, SOB with exertion, lightheadedness, N/V/D (occurred 2 weeks ago; resolved) and burning in the hands and feet (which patient attributes to her fibromyalgia; chronic but worse over the past 2 weeks). Patient denies fever, dizziness, headache, changes in vision, chest pain at rest or with exertion, pleuritic CP, cough, hemoptysis, abdominal pain, burning with urination, dysuria, blood in the urine or stool, or changes in urinary or bowel habits. Admission Exam Per Admitting Provider General: no acute distress; pleasant affect; non-toxic appearing; frail appearing; cooperative; SpO2 98% on RA HEENT: normocephalic, atraumatic; no scleral icterus; PERRLA; vision and hearing grossly intact Neck: supple; no lymphadenopathy; trachea midline Skin: warm, dry without signs of tenting; no cyanosis; no rashes, bruising, lesi ons, or erythema noted CV: chest wall NTP; RRR; S1/S2 normal; no murmurs/rubs/gallops; pulses intact and symmetric at radial, DP, and PT Lungs: no acute respiratory distress; symmetrical chest wall expansion; clear breath sounds across all lung jackson w/o adventitious sounds; no wheezing ABD: Soft, NTP; BS present; no rebound/guarding; no distention; no rashes or bruising on the abdomen or back Back: Upper and lower spine are NTP MSK: no tics or fasciculations; no edema noted in the LEs b/l, nonerythematous Neuro: A&Ox3; normal mood and affect; fluent speech; no focal deficits; sensation intact and symmetric in the LEs b/l Discharge Exam General: No acute distress, nondiaphoretic, well-developed, well-nourished. Skin: The skin was without rashes, erythema, edema, or bruising. Cardiac: Regular rate and rhythm without murmurs gallops or rubs. Pulm: Clear to auscultation bilaterally without wheezes, rales or rhonchi. No respiratory distress. 98% on room air. Abdominal: Soft, nontender, nondistended. Bowel sounds present. Neuro: A&O x3. No focal neurological deficits. Discharge Plan Discharge Items Patient Disposition: Home - Self-Care Reason For Visit: hyponatremia, chest palpitations Discharge Diagnosis: Heart palpitations, resolved Hyponatremia, improved Activity: Resume your previous activity Non-emergency contact: Primary Care Provider and Tip Cutter Call non-emergency contact if: you have any medication questions and your symptoms worsen Follow-up/Referrals: Tyrese Morrell DO [Primary Care Provider] - Diet: Heart Healthy Addtl Attending Provider Instructions: Mrs. Elkins, Felix were admitted to the hospital due to heart palpitations and acute hyponatremia (low sodium). Your workup to explain the heart palpitations was negative, including normal EKG, normal troponin (heart enzyme), and normal thyroid hormone. Your heart monitoring while in the hospital has showed normal sinus rhythm in the 70s throughout your hospitalization. I recommend that you follow-up with Dr. Soliz in cardiology outpatient. Additionally, you had low sodium, potassium, magnesium on admission. Your magnesium was repleted. Your potassium improved to normal after holding your hydrochlorothiazide (HCTZ). Your sodium improved after receiving IV fluids. I suspect that your low sodium was due to volume depletion. You were previously taking a combination losartan/hydrochlorothiazide pill. As we discussed, we will discontinue your HCTZ and prescribe losartan individually to continue taking at home. This prescription has been sent to the [facility] pharmacy in [place]. Upon discharge from the hospital: * Continue taking losartan 100 mg daily. This was part of your combined losartan/HCTZ medicine. Your HCTZ was stopped due to electrolyte abnormalities. * Follow-up with cardiology outpatient. Their office will call you sometime this week with your follow-up appointment date and time. * Follow-up with your PCP in 1-2 weeks. * You can take melatonin as needed for sleep. You had 3 mg of melatonin at bed time in the hospital which seemed to improve your sleep. This is an llqu-byr-evpznnm (OTC) medication, so no prescription is required. Please return to the hospital if you experience any of the following: Chest pain, worsening/return of your heart palpitations, shortness of breath, difficulty breathing, lightheaded, dizzy, passing out, irregular heartbeat, rapid heartbeat that makes you uncomfortable, slower than usual heart rate along with symptoms, chest pain with weakness/dizziness/heavy sweating/nausea/vomiting, extreme drowsiness, confusion, weakness of 1 side of your body, or trouble with speech/vision. It was a pleasure taking care of you while you were in the hospital, Christina Smiley PA-C Pending Studies at Discharge: No Stand-Alone Forms: My [facility] datatracker, Smoking Cessation Medications and DC Order Prescriptions: New losartan 50 mg Tablet 100 mg PO QAM Qty: 30 0RF Continued omeprazole 40 mg capsule,delayed release(DR/EC) 40 mg PO QAM Qty: 90 3RF ibandronate 150 mg tablet 150 mg PO MONTHLY Qty: 12 0RF Rx Instructions: TAKES ON THE OF THE MONTH. Eliquis 5 mg tablet 5 mg PO BID 90 Days Qty: 180 3RF potassium chloride 20 mEq tablet extended release 20 meq PO DAILY Qty: 90 3RF cholecalciferol (vitamin D3) 1,000 unit capsule 1,000 units PO DAILY Qty: 90 multivitamin [Daily Multi-Vitamin] Tablet 1 tab PO QAM mecobalamin (vitamin B12) 1,000 mcg tablet,disintegrating 1,000 mcg sublingual DAILY Rx Instructions: place tablet under tongue and allow to dissolve for at least30 secs before swallowing duloxetine 30 mg capsule,delayed release(DR/EC) 30 mg PO DAILY Qty: 90 3RF amiodarone 200 mg tablet 200 mg PO QAM Rx Instructions: Take 1 tablet by mouth every day. amlodipine 5 mg tablet 5 mg PO QAM Discontinued losartan-hydrochlorothiazide 100-25 mg tablet 1 tab PO QAM Discharge Orders: Discharge Order (Routine); Ordered 04/23/24 Ordered By: Christina Smiley Admission Data Admit Date/Time: 04/21/24 13:05 Attending Provider: Jad Powers Admit Provider: Favian Rocha Primary Care Provider: Tyrese Morrell Other Providers: Favian Rocha Hospital Stay Data Consultations 04/21/24 11:25 ED Decision to Admit Stat Pending Results Patient Have Any Pending Studies at Discharge: No Discharge Instructions Given to Patient (Per Discharging Provider) Mrs. Elkins, Felix were admitted to the hospital due to heart palpitations and acute hyponatremia (low sodium). Your workup to explain the heart palpitations was negative, including normal EKG, normal troponin (heart enzyme), and normal thyroid hormone. Your heart monitoring while in the hospital has showed normal sinus rhythm in the 70s throughout your hospitalization. I recommend that you follow-up with Dr. Soliz in cardiology outpatient. Additionally, you had low sodium, potassium, magnesium on admission. Your magnesium was repleted. Your potassium improved to normal after holding your hydrochlorothiazide (HCTZ). Your sodium improved after receiving IV fluids. I suspect that your low sodium was due to volume depletion. You were previously taking a combination losartan/hydrochlorothiazide pill. As we discussed, we will discontinue your HCTZ and prescribe losartan individually to continue taking at home. This prescription has been sent to the [facility] pharmacy in [place]. Upon discharge from the hospital: * Continue taking losartan 100 mg daily. This was part of your combined losartan/HCTZ medicine. Your HCTZ was stopped due to electrolyte abnormalities. * Follow-up with cardiology outpatient. Their office will call you sometime this week with your follow-up appointment date and time. * Follow-up with your PCP in 1-2 weeks. * You can take melatonin as needed for sleep. You had 3 mg of melatonin at bedtime in the hospital which seemed to improve your sleep. This is an zxra-yto-bvcxsjn (OTC) medication, so no prescription is required. Please return to the hospital if you experience any of the following: Chest pain, worsening/return of your heart palpitations, shortness of breath, difficulty breathing, lightheaded, dizzy, passing out, irregular heartbeat, rapid heartbeat that makes you uncomfortable, slower than usual heart rate along with symptoms, chest pain with weakness/dizziness/heavy sweating/nausea/vomiting, extreme drowsiness, confusion, weakness of 1 side of your body, or trouble with speech/vision. It was a pleasure taking care of you while you were in the hospital, Christina Smiley PA-C Total Time Total Time Spent Total Time Spent (In Minutes): Greater than 30 minutes spent completing this discharge process including direct patient care, medication reconciliation, documentation, review of labs and images, and coordination of care. Coding Level of Care Code 02045 INP/OBS DISCH >30 MIN Diagnoses Heart palpitations R00.2 Acute hyponatremia E87.1 Hypokalemia E87.6 Paroxysmal atrial fibrillation I48.0 Hypertension I10
[2024-04-23 10:29] VITALS: PULSE 76
[2024-04-23 11:40] VITALS: BP 102/60; TEMP 98.1; O2SAT 94
== END 2024-04-23 12:52 | disposition home or self-care (01) | DRG 641 ==
LOC: ED 09:42 → 2N 13:05 → SUATTDRO 13:05 → 2N 14:06

== ENCOUNTER 2025-07-15 09:48 | Observation (INO) ==
[2025-07-15 10:35] LABS: Hematocrit (blood only) 39.3 % (37.0-47.0); Hemoglobin 13.4 g/dL (12.0-16.0); Immature Granulocytes # (auto) 0.03 K/uL (0.01-0.20); Immature Granulocytes % (auto) 0.3 %; Mean Corpuscular Hemoglobin 32.9 pg (25.0-34.0); Mean Corpuscular Volume 96.6 fL (80.0-100.0); Platelet Count 226 K/uL (130-400); RDW Standard Deviation 43.4 fL (36.4-46.3); Red Blood Count 4.07 M/uL (4.20-5.40); White Blood Count 9.51 K/ul (4.8-10.8)
[2025-07-15 10:54] LABS: Alanine Aminotransferase 14.0 U/L (7-52); Albumin Globulin Ratio 1.2 (0.9-2); Albumin Level 4.3 gm/dl (3.4-5.0); Alkaline Phosphatase 57.0 U/L (34-104); Anion Gap 7.0 (3-11); Bilirubin,Total 1.1 mg/dl (0.2-1.0); Blood Urea Nitrogen 14.0 mg/dl (6-23); Calcium 9.6 mg/dl (8.6-10.3); Carbon Dioxide 28.0 mmol/L (21-32); Chloride 101.0 mmol/L (98-107); Creatinine Clr Calc Pharmacy 60.0 ml/min; Globulin 3.5 gm/dl (2.5-4.0); Glucose 108.0 mg/dl (70-99(Fasting)); Potassium 3.6 mmol/L (3.5-5.1); Sodium 136.0 mmol/L (136-145); Total Protein 7.8 gm/dl (6.0-8.3)
[2025-07-15 11:03] LABS: INR 1.0 (0.9-1.1); Partial Thromboplastin Time 30 Seconds (21-31); Prothrombin Time 10.9 Seconds (9.0-12.0)
--- NOTE | 2025-07-15 11:28 | XRay Report ---
XR chest 1V portable HISTORY: 80 years-old Female Chest pain, nonspecific COMPARISON: 04/21/2024 TECHNIQUE: AP view of the chest FINDINGS: Cardiomediastinal and hilar silhouettes are similar to prior. Mild chronic interstitial coarsening. N o pneumothorax, large pleural effusion or overt pulmonary edema. There is mild blunting of the latera l costophrenic angles. Mild linear left basilar atelectasis versus scarring. Bones of the chest appea r grossly intact. IMPRESSION: No acute process. ACT 112: Negative or not required by law. The above report was generated using voice recognition software. It may contain grammatical, syntax o r spelling errors. Electronically signed by: Dl Peralta M.D. 07/15/2025 11:27 AM
--- NOTE | 2025-07-15 12:49 | CT Scan Report ---
CT head/brain wo con CLINICAL HISTORY: 80 years-old Female with weakness. Acute weakness TECHNIQUE: Multiple axial CT images of the head were obtained without contrast. A dose lowering tech nique was utilized adhering to the principles of ALARA. CT DOSE: 625.8 mGy.cm COMPARISON: 10/02/2019 FINDINGS: No acute intracranial hemorrhage, midline shift, intracranial mass, hydrocephalus, territorial ischem ia or abnormal extra-axial collection. Calcifications of the falx cerebri redemonstrated. Involutiona l changes with probable chronic microvascular ischemic disease. Partially empty sella. The calvarium is intact. Mild mucoperiosteal thickening of the paranasal sinuses. The mastoid air ce lls are clear. Unremarkable soft tissues and orbits. IMPRESSION: No acute intracranial abnormality. ACT 112: Negative or not required by law. The above report was generated using voice recognition software. It may contain grammatical, syntax o r spelling errors. Electronically signed by: Dl Peralta M.D. 07/15/2025 12:48 PM
[2025-07-15 14:21] LABS: Magnesium 2.0 mg/dl (1.7-2.4)
--- NOTE | 2025-07-15 14:31 | History & Physical Report ---
Date of Service July 15, 2025 Assessment & Plan (1) Exertional dyspnea: (2) Chest pressure: (3) Hypertension: (4) Exercise-induced weakness: (5) Paroxysmal atrial fibrillation: (6) Anxiety and depression: (7) Acid reflux disease: (8) Fibromyalgia: Plan 80yo female with PMHx significant for paroxysmal atrial fibrillation, anxiety/depression, fibromyalgia, GERD, Vitamin D deficiency, allergic rhinitis presented with worsening dyspnea on exertion and chest pressure for at least the past month. Increased weakness and balance issues since switching BP medication from amlodipine to doxazosin (and notes BPs actually worse on this) while waiting for outpatient work-up for possible underlying Myasthenia Gravis. CXR noting no acute process. Mild chronic interstitial coarsening, no PTX effusion or overy pulmonary edema. Does note mild blunting costophrenic angles and mild atelectasis vs scarring CT head negative for acute CVA Labs largely unremarkable on admission #Exertional Dyspnea #Chest Pressure Observation medical w/ telemetry Serial troponin ECHO EKG w/ CP, Nitro SL prn Hold home doxazosin as well as buspar- both medications new and ?if contributing to worsening sx or if deconditioning playing a role in her current sxs Have added hydralazine IV if needed for BP *currently 193/78* Continues on eliquis BID for hx paroxysmal atrial fibrillation. TSH wnl recently Consider touching base w/ Neurology in AM about ordering some send out testing for possible MG if felt warranted as above Monitor telemetry, ECHO, labs on repeat #Weakness, Balance Issues - CT head negative for acute CVA. Not confused and non-focal on examination. Do note BP elevated -- see below Fall precautions Orthostatic VS for completeness PT/OT consults Check UA for completeness (WBC wnl but did note L shift, subjective chills but no fever in elderly female), mag, B12 *Do note CT head does mention partially empty sella --?further work-up. Also mentions some thickening of sinuses (however denied any sinus congestion during encounter) #Paroxysmal atrial fibrillation #Hypertension - follows with Dr Soliz at baseline. Recently stopped amlodipine, started doxazosin . ?if alpha sara contributing to above and has been placed on hold Continues on eliquis 5mg BID, amiodarone 200mg daily for atrial fibrillation.EKG on admission NSR, 80bpm. ?if amiodarone contributing to lung sx -- could consider obtaining dedicated CT if ongoing/worsening issues. No hypoxia noted. CXR chronic thickening, no consolidation Continues on losartan 100mg daily Further monitoring for titration to medications as needed have added hydralazine IV if needed in meantime DVT proph: eliquis BID continued Dispo: observation to medical w/ telemetry. serial troponin/echo and consideration to reach out to Neurology pending status on repeat exam History of Present Illness Chief Complaint: Exertional Dyspnea, Chest Pressure Primary Care Provider: Tyrese Morrell, DO 80yo female presented with concerns for progressive exertional dyspnea and chest pressure. None currently at rest and reports improvement once she does rest after activity. She reports symptoms feel like they have been getting worse over the past month and has associated feeling of being unsteady on her feet and feeling like she should be using a cane for ambulation. Did have some burning in her legs and back down her buttocks which also resolved with rest. She reports she is to have follow up with Neurology regarding possible underlying Myasthenia Gravis. Notable has some drooping of eyelids and weakness that improves with rest, which is why she reports her PCP believes potentially having underlying MG and has Neurology referral but not having appointment until this upcoming October which is distressing. She notes had stopped amlodipine with cardiology and started on doxazosin and believes that her blood pressure is actually WORSE since being on this. Also recently picked up rx for Buspar and took a dose. Both medications new in the past month. Does have some chills, no fever or cough/sputum production. No sick contacts. No abdominal pain, nausea, vomiting or diarrhea. No smoking, etoh use. radiocommunications technician in room to perform ECHO at this time. Currently without SOB/CP at rest. No longer on any PPI updated at bedside. Full code. Allergies Allergy/AdvReac Type Severity Reaction Status Date / Time celecoxib Allergy Intermediate RASH Verified 07/15/25 14:52 levofloxacin Allergy Intermediate HIVES Verified 07/15/25 14:52 meperidine AdvReac Intermediate n/v Verified 07/15/25 14:52 sertraline AdvReac Mild Verified 07/15/25 14:52 Home Medications Medication Instructions Recorded Confirmed Type cholecalciferol (vitamin D3) 25 1,000 units PO DAILY #90 caps 05/15/19 07/15/25 History mcg (1,000 unit) capsule multivitamin (Daily Multi-Vitamin 1 tab PO .DAILY @NOON 02/02/20 07/15/25 History tablet) mecobalamin (vitamin B12) 1,000 1,000 mcg sublingual .DAILY @ NOON 03/25/22 07/15/25 History mcg disintegrating tablet,sublingual amiodarone 200 mg tablet 200 mg PO QAM #90 tabs 09/05/24 07/15/25 Rx apixaban 5 mg tablet (Eliquis) 5 mg PO BID 90 days #180 tabs 10/31/24 07/15/25 Rx ibandronate 150 mg tablet 150 mg PO MONTHLY #12 tabs 05/17/25 07/15/25 Rx magnesium glycinate 400 mg PO HS 07/02/25 07/15/25 History omega 3 850 [id number]-fish oil 1 cap PO QAM 07/02/25 07/15/25 History 1,400 mg capsule buspirone 5 mg tablet 5 mg PO TID PRN anxiety #60 tabs 07/09/25 07/15/25 Rx doxazosin 1 mg tablet 1 mg PO HS 07/15/25 07/15/25 History losartan 100 mg tablet 100 mg PO QAM 07/15/25 07/15/25 History Past Med/Surg History Problem List (Updated 07/16/25 @ 15:16 by [place]s PA-C) Balance problem Weakness Chest pain (Acute) Chest pressure Exertional dyspnea Atrial fibrillation on eliquis - follows with Dr. Soliz Exercise-induced weakness History of compression fracture of spine thoracic Anxiety and depression On amiodarone therapy Anticoagulant long-term use Paroxysmal atrial fibrillation Acid reflux disease Heart palpitations (Acute) Lightheadedness (Acute) Insomnia Osteoporosis Mitral regurgitation Left ventricular hypertrophy Allergic rhinitis Hypokalemia Hypomagnesemia Numbness and tingling of both upper extremities Vitamin D deficiency Hypertension (Acute) Fibromyalgia (Acute) Medical History Hypoxemia Acute hyponatremia Acute dyspnea Diarrhea Acute dehydration Constipation Carpal tunnel syndrome of right wrist History of femur fracture (~2020) left hip Atrial fibrillation with RVR Family history of colon cancer in father Chest pain Community acquired pneumonia History of wrist fracture Left History of diverticulitis History of hyperthyroidism Vertigo Surgical History History of carpal tunnel surgery of left wrist 10-21-21 Dr Marin, [facility] History of hemorrhoidectomy History of open reduction and internal fixation (ORIF) procedure Lt femur H/O tubal ligation H/O oral surgery Hx of cholecystectomy S/P colon resection 2/2 diverticular disease S/P tonsillectomy Hx of appendectomy Family History Mother Breast cancer Hypertension Father Prostate cancer Colorectal cancer Hypertension Other No family history of adverse response to anesthesia Denies family history of Ovarian cancer Diabetes Myocardial infarction Social History Smoking Status: Never smoker Second Hand Exposure: No; Do You Dip or Chew Tobacco: No; Tobacco Cessation Education Requested by Patient: No Hx Alcohol Use: No Hx Substance Use: No Preferred Language: Azeri Communication Ability: Effective Visual Impairment: Limited Hearing Ability: Normal Culture Room Worker Required: No Beliefs That Will Affect Care: None marital status: Current Living Situation: Spouse Current Living Situation Comment: lives at home with current occupational status: retired How many Children do You have: 2 Other Information That Helps Us Care for You: No Feels Safe at Home: Yes Safety Concerns: Feels Safe At This Time Childhood Exposure to Second-Hand Smoke: Yes Diet: regular caffeine: No during the past year weight has: remained stable Dental Care, Regularly: No Physical Activity Frequency: 3-4 Times per Week Seatbelt Use: always Sunscreen Use: No Do you think of yourself as: straight/heterosexual Sexual Activity: has been sexually active, but not for at least 12 months Gender Identity: Female Assistive Devices: Denture - Upper, Denture - Lower, Glasses and Hospital Bed Review of Systems 2 Review of Systems: All systems reviewed & are unremarkable except as noted in HPI & below weakness, unsteadiness, drooping eyelids chest pressure exertional dyspnea chills, no fever Physical Exam 2 Physical Exam: General: 80yo female resting in bed in ER, at bedside, NAD HEENT: head atraumatic, normocephalic, slight dropping eyelids bilaterally but EOMI, pupils equal in size, no facial droop Resp: even/unlabored, slightly diminished in the bases with associated bibasilar crackles but no wheezing or rales, on room air, not tachypneic CV: regular, no significant m/r/g, no pitting edema or calf tenderness, pulses present GI: +BS, obese, soft/NT MSK/Neuro: generalized weakness but nonfocal, able to answer questions appropriately, follows commands, not confused Psych AOx3, cooperative but anxious at times Results & Data Results & Data Vital Signs (Past 12 Hours) Vital Signs Temp Pulse Resp BP Pulse Ox O2 Del Method 07/15/25 14:21 79 22 98 07/15/25 14:15 193/78 H 07/15/25 13:42 72 15 95 07/15/25 13:39 75 15 100 07/15/25 13:38 172/70 H 07/15/25 13:38 172/70 H 07/15/25 13:36 71 20 94 07/15/25 11:23 71 07/15/25 11:09 73 15 99 07/15/25 11:05 188/88 H 07/15/25 11:05 99 Room Air 07/15/25 09:48 Room Air 07/15/25 09:48 37.0 C 88 16 173/95 H 95 Laboratory Results 07/15/25 10:15 07/15/25 10:15 Mag 2.0 Diagnostic Findings Chest X-Ray 07/15/25 10:02 XR chest 1V portable HISTORY: 80 years-old Female Chest pain, nonspecific COMPARISON: 04/21/2024 TECHNIQUE: AP view of the chest FINDINGS: Cardiomediastinal and hilar silhouettes are similar to prior. Mild chronic interstitial coarsening. No pneumothorax, large pleural effusion or overt pulmonary edema. There is mild blunting of the lateral costophrenic angles. Mild linear left basilar atelectasis versus scarring. Bones of the chest appear grossly intact. IMPRESSION: No acute process. ACT 112: Negative or not required by law. The above report was generated using voice recognition software. It may contain grammatical, syntax or spelling errors. Electronically signed by: Dl Peralta M.D. 07/15/2025 11:[address] 07/15/25 11:39 CT head/brain wo con CLINICAL HISTORY: 80 years-old Female with weakness. Acute weakness TECHNIQUE: Multiple axial CT images of the head were obtained without contrast. A dose lowering technique was utilized adhering to the principles of ALARA. CT DOSE: 625.8 mGy.cm COMPARISON: 10/02/2019 FINDINGS: No acute intracranial hemorrhage, midline shift, intracranial mass, hydrocephalus, territorial ischemia or abnormal extra-axial collection. Calcifications of the falx cerebri redemonstrated. Involutional changes with probable chronic microvascular ischemic disease. Partially empty sella. The calvarium is intact. Mild mucoperiosteal thickening of the paranasal sinuses. The mastoid air cells are clear. Unremarkable soft tissues and orbits. IMPRESSION: No acute intracranial abnormality. ACT 112: Negative or not required by law. The above report was generated using voice recognition software. It may contain grammatical, syntax or spelling errors. Electronically signed by: Dl Peralta M.D. 07/15/2025 12:48 PM Supervising Physician Co-Signing Physician Notes Attending Attestation & Admission Note: Pt seen/examined, chart reviewed, admit care plan d/w SHAUN Kumar. I agree w the jacobson components of her admission documentation. 80yo female with paroxysmal atrial fibrillation on Eliquis/amiodarone, HTN, anxiety/depression, fibromyalgia, GERD, Vitamin D deficiency, allergic rhinitis. She presented to the ER today with 1 month of progressive generalized weakness. In the midst of her ER work-up she apparently mentioned dyspnea and chest tightness. However, during my interview with her, she denied chest pain/chest tightness and denied any dyspnea. She did state her chest "pounds" at times - ie she has palpitations. During my assessment she complained of progressive muscular weakness of all 4 limbs She has morning stiffness and aches especially around her hip region. Her symptoms are not worse as the day progresses. She reports numbness in her arms (from elbows to the hands) and numbness in her legs as well. If she feels weak she rests and symptoms improve. Denies headaches. Denies visual change. She denied droopy eyelids on a regular basis - she did state that her eyelids "are low." PMH/PSH/allergies/meds/sochx - reviewed BPs very elevated at presentation, slowly improving gen - resting comfortably in bed, NAD, looks well eyes - with upward gaze for about 45 seconds she did not show eyelid fatigue and no ptosis developed neck - no JVD heart - RRR, s1 s2, no murmur lungs - CTA b/l abd - soft NT ND BS+ ext - no edema, pulses 2+ b/l neuro - no proximal muscle weakness of arms/legs; strength 5/5 x 4 exts; DTRs 2+ b/l upper/lower exts; no facial droop labs reviewed CT head reviewed - partial empty sella EKG - NSR, no ST changes; poor R wave progression A/P: 1. generalized weakness x 1 month, numbness x 4 limbs, stiffness, myalgias, etc. 2. palpitations 3. uncontrolled HTN 4. report of dyspnea and chest symptoms but denied these during my assessment -MRI brain and MRI cervical spine - w/ and w/o contrast - rule out MS, tumor, etc. -if MRIs are negative consider myasthenia gravis Ab panel -check sed rate/CRP (r/o PMR); check CPK (r/o myopathy, but no evidence of such on exam) -h/o B12 def but last 3 B12 levels have all been wnl -consider checking B1, B6, copper, etc as these deficiencies can cause neuropathy -adjust BP meds -echo Jad Powers MD PG Care Time/CCT Total # of Minutes Spent Total Time Spent with Patient: Total time spent is greater than 50% in coordination of care (as documented) at patient's floor/unit and/or counseling patient: Coding Level of Care Code 53617 INT INP/OBS CARE 3/75MIN Diagnoses Exertional dyspnea R06.09 Chest pressure R07.89 Hypertension I10 Exercise-induced weakness M62.81 Paroxysmal atrial fibrillation I48.0 Anxiety and depression F41.9; F32.A Acid reflux disease K21.9 Fibromyalgia M79.7
[2025-07-15 15:21] LABS: Appearance Urine Clear (Clear); Bacteria Urine Automated None Seen (None Seen); Cast Urine Automated 0-2 /lpf (0-2); Epithelial Cell Urine Auto 0-2 /hpf (0-2); Glucose Urine UA Negative (Negative); RBC Urine Automated 0-2 /hpf (0-2); WBC Urine Automated 0-5 /hpf (0-5)
[2025-07-15] MEDS ORDERED: NITROGLYCERIN SL 0.4 MG/TAB TAB SL PRN (15:55)
[2025-07-15] MEDS ORDERED: ONDANSETRON INJ 2 MG/ML 2 ML VIAL IV PRN (15:55)
[2025-07-15] MEDS ORDERED: LORazepam 0.5 MG TAB PO PRN (16:10)
--- NOTE | 2025-07-15 17:27 | Emergency Department Note ---
History of Present Illness General Chief Complaint: Cardiac Assessment Stated Complaint: WEAK, FATIGUE, HIGH BP, HIGH HEART RATE Time Seen by Provider: 07/15/25 11:16 History of Present Illness Provider Complaint: chest pain Onset (ago): week(s) Onset (Weeks): 1 Duration: intermittent and progressively worsening Onset: during rest Pain Location: substernal Pain Radiation: none Severity: moderate Current Pain Intensity: 0 Quality: + heaviness Relieved By: + rest Exacerbated By: + exertion Context: no recent illness, no recent surgery, no recent immobilization, no recent travel, no trauma/injury, no new medications or no history of DVT/PE Associated symptoms: + dyspnea and + palpitations; no vomiting, no syncope, no fever or no cough Home Medications Medication Instructions Recorded Confirmed Type cholecalciferol (vitamin D3) 25 1,000 units PO DAILY #90 caps 05/15/19 07/15/25 History mcg (1,000 unit) capsule multivitamin (Daily Multi-Vitamin 1 tab PO .DAILY @NOON 02/02/20 07/15/25 History tablet) mecobalamin (vitamin B12) 1,000 1,000 mcg sublingual .DAILY @ NOON 03/25/22 07/15/25 History mcg disintegrating tablet,sublingual amiodarone 200 mg tablet 200 mg PO QAM #90 tabs 09/05/24 07/15/25 Rx apixaban 5 mg tablet (Eliquis) 5 mg PO BID 90 days #180 tabs 10/31/24 07/15/25 Rx ibandronate 150 mg tablet 150 mg PO MONTHLY #12 tabs 05/17/25 07/15/25 Rx magnesium glycinate 400 mg PO HS 07/02/25 07/15/25 History omega 3 850 if-ipt-tna-fish oil 1 cap PO QAM 07/02/25 07/15/25 History 1,400 mg capsule buspirone 5 mg tablet 5 mg PO TID PRN anxiety #60 tabs 07/09/25 07/15/25 Rx doxazosin 1 mg tablet 1 mg PO HS 07/15/25 07/15/25 History losartan 100 mg tablet 100 mg PO QAM 07/15/25 07/15/25 History Allergies Allergy/AdvReac Type Severity Reaction Status Date / Time celecoxib Allergy Intermediate RASH Verified 07/15/25 14:52 levofloxacin Allergy Intermediate HIVES Verified 07/15/25 14:52 meperidine AdvReac Intermediate n/v Verified 07/15/25 14:52 sertraline AdvReac Mild Verified 07/15/25 14:52 Past Med/Surg History Problem List (Updated 07/15/25 @ 17:27 by Brian Trivedi MD) Chest pain (Acute) Chest pressure Exertional dyspnea Atrial fibrillation on eliquis - follows with Dr. Soliz Exercise-induced weakness History of compression fracture of spine thoracic Anxiety and depression On amiodarone therapy Anticoagulant long-term use Paroxysmal atrial fibrillation Acid reflux disease Heart palpitations (Acute) Lightheadedness (Acute) Insomnia Osteoporosis Mitral regurgitation Left ventricular hypertrophy Allergic rhinitis Hypokalemia Hypomagnesemia Numbness and tingling of both upper extremities Vitamin D deficiency Hypertension (Acute) Fibromyalgia (Acute) Medical History Hypoxemia Acute hyponatremia Acute dyspnea Diarrhea Acute dehydration Constipation Carpal tunnel syndrome of right wrist History of femur fracture (~2020) left hip Atrial fibrillation with RVR Family history of colon cancer in father Chest pain Community acquired pneumonia History of wrist fracture Left History of diverticulitis History of hyperthyroidism Vertigo Surgical History History of carpal tunnel surgery of left wrist 10-21-21 Dr Marin, [facility] History of hemorrhoidectomy History of open reduction and internal fixation (ORIF) procedure Lt femur H/O tubal ligation H/O oral surgery Hx of cholecystectomy S/P colon resection 2/2 diverticular disease S/P tonsillectomy Hx of appendectomy Family History Mother Breast cancer Hypertension Father Prostate cancer Colorectal cancer Hypertension Other No family history of adverse response to anesthesia Denies family history of Ovarian cancer Diabetes Myocardial infarction Social History Smoking Status: Never smoker Second Hand Exposure: No; Do You Dip or Chew Tobacco: No; Hx Alcohol Use: No Hx Substance Use: No Preferred Language: Ethiopian Communication Ability: Effective Visual Impairment: Limited Hearing Ability: Normal Material Processor Required: No Beliefs That Will Affect Care: None marital status: Current Living Situation: Spouse current occupational status: retired How many Children do You have: 2 Feels Safe at Home: Yes Childhood Exposure to Second-Hand Smoke: Yes Diet: regular caffeine: No during the past year weight has: remained stable Dental Care, Regularly: No Physical Activity Frequency: 3-4 Times per Week Seatbelt Use: always Sunscreen Use: No Do you think of yourself as: straight/heterosexual Sexual Activity: has been sexually active, but not for at least 12 months Gender Identity: Female Assistive Devices: Denture - Upper, Denture - Lower and Glasses Physical Exam Vital Signs Vital Signs - 24 hr 07/15/25 09:48 07/15/25 09:48 07/15/25 11:05 Temperature 37.0 C Temperature Source Temporal Artery Scan Pulse Rate 88 Pulse Rate from SpO2 Sensor Respiratory Rate 16 Blood Pressure 173/95 H Blood Pressure Mean 121 Pulse Oximetry 95 99 Oxygen Delivery Method Room Air Room Air Sepsis Recent Fever Within 48 Hours No Sepsis New/Unexplained Change in Mental Status N/A Sepsis Action Taken by Nursing No Action Required 07/15/25 11:05 07/15/25 11:09 07/15/25 11:23 Temperature Temperature Source Pulse Rate 73 71 Pulse Rate from SpO2 Sensor 73 Respiratory Rate 15 Blood Pressure 188/88 H Blood Pressure Mean 113 Pulse Oximetry 99 Oxygen Delivery Method Sepsis Recent Fever Within 48 Hours Sepsis New/Unexplained Change in Mental Status Sepsis Action Taken by Nursing 07/15/25 13:36 07/15/25 13:38 07/15/25 13:38 Temperature Temperature Source Pulse Rate 71 Pulse Rate from SpO2 Sensor 71 Respiratory Rate 20 Blood Pressure 172/70 H 172/70 H Blood Pressure Mean 122 122 Pulse Oximetry 94 Oxygen Delivery Method Sepsis Recent Fever Within 48 Hours Sepsis New/Unexplained Change in Mental Status Sepsis Action Taken by Nursing 07/15/25 13:39 07/15/25 13:42 07/15/25 14:15 Temperature Temperature Source Pulse Rate 75 72 Pulse Rate from SpO2 Sensor 75 72 Respiratory Rate 15 15 Blood Pressure 193/78 H Blood Pressure Mean 100 Pulse Oximetry 100 95 Oxygen Delivery Method Sepsis Recent Fever Within 48 Hours Sepsis New/Unexplained Change in Mental Status Sepsis Action Taken by Nursing 07/15/25 14:21 Temperature Temperature Source Pulse Rate 79 Pulse Rate from SpO2 Sensor 79 Respiratory Rate 22 Blood Pressure Blood Pressure Mean Pulse Oximetry 98 Oxygen Delivery Method Sepsis Recent Fever Within 48 Hours Sepsis New/Unexplained Change in Mental Status Sepsis Action Taken by Nursing Physical Exam GENERAL: oriented to person, place, and time. appears well-developed and well- nourished. HENT: Exam performed. - Head: Normocephalic and atraumatic. EYES: Conjunctivae and EOM are normal. Right eye exhibits no discharge. Left eye exhibits no discharge. No scleral icterus. NECK: Normal range of motion. Neck supple. No JVD present. CV: Normal rate, regular rhythm, normal heart sounds and intact distal pulses. There is no peripheral edema. Palpable radial pulses bue. PULM/CHEST: Effort normal and breath sounds normal. No respiratory distress. No stridor. no wheezes. no rales. ABD: The abdomen is soft. There is no tenderness. NEURO: Motor and sensation grossly intact. SKIN: Skin is warm and dry. He is not diaphoretic. PSYCH: normal mood and affect. Behavior is normal. Judgment and thought content normal. Course Course 1116: The patient was evaluated in room B4. A complete history and physical exam was performed Cardiac monitoring: An order was placed for continuous cardiac monitoring. The monitor shows a rate of 80 with sinus rhythm interpreted by nd 1335: Vital signs stable. Labs and imaging unremarkable. Patient will be admitted to the [facility] team for chest pain rule out ACS. Administered Medications Hydralazine HCl (Hydralazine Hcl 20 Mg/Ml Vial) 10 mg IV Q8H PRN PRN Reason: hypertension Stop: 08/14/25 15:54 Last Admin: 07/15/25 16:10 Dose: 10 mg Documented By: barry Medical Decision Making Laboratory Data Attestation: I reviewed the patient's lab results. 07/15/25 10:15 07/15/25 10:15 Labs: Lab Results 07/15/25 07/15/25 Range/Units 10:15 13:07 WBC 9.51 (4.8-10.8) K/ul RBC 4.07 L (4.20-5.40) M/uL Hgb 13.4 (12.0-16.0) g/dL Hct 39.3 (37.0-47.0) % MCV 96.6 (80.0-100.0) fL MCH 32.9 (25.0-34.0) pg MCHC 34.1 (32.0-36.0) g/dL RDW Std Deviation 43.4 (36.4-46.3) fL RDW Coeff of Manju 12.2 (11.5-14.5) % Plt Count 226 (130-400) K/uL MPV 11.4 (9.4-12.4) fL Immature Gran % (Auto) 0.3 % Neut % (Auto) 80.0 % Lymph % (Auto) 8.4 % [place] % (Auto) 10.1 % Eos % (Auto) 0.7 % Baso % (Auto) 0.5 % Neut # (Auto) 7.60 H (1.40-6.50) K/uL Lymph # (Auto) 0.80 L (1.20-3.40) K/uL [place] # (Auto) 0.96 H (0.11-0.59) K/uL Eos # (Auto) 0.07 (0.00-0.50) K/uL Baso # (Auto) 0.05 (0.00-0.20) K/uL Immature Gran # (Auto) 0.03 (0.01-0.20) K/uL PT 10.9 (9.0-12.0) Seconds INR 1.0 (0.9-1.1) APTT 30 (21-31) Seconds PTT Ratio 1.1 Sodium 136 (136-145) mmol/L Potassium 3.6 (3.5-5.1) mmol/L Chloride 101 (98-107) mmol/L Carbon Dioxide 28 (21-32) mmol/L Anion Gap 7 (3-11) BUN 14 (6-23) mg/dl Creatinine 0.80 (0.6-1.2) mg/dl Est Cr Clr Drug Dosing 60.0 ml/min eGFR 74.90 BUN/Creatinine Ratio 17.5 (10-20) Glucose 108 H (70-99(Fasting)) mg/dl Calcium 9.6 (8.6-10.3) mg/dl Magnesium 2.0 (1.7-2.4) mg/dl Total Bilirubin 1.1 H (0.2-1.0) mg/dl AST 17 (13-39) U/L ALT 14 (7-52) U/L Alkaline Phosphatase 57 (34-104) U/L Troponin I High Sens 8.5 (0-14) pg/ml Total Protein 7.8 (6.0-8.3) gm/dl Albumin 4.3 (3.4-5.0) gm/dl Globulin 3.5 (2.5-4.0) gm/dl Albumin/Globulin Ratio 1.2 (0.9-2) Urine Color Yellow Urine Appearance Clear (Clear) Urine pH 8.0 H (4.5-7.5) Ur Specific [place] 1.008 (1.000-1.030) Urine Protein Negative (Negative) Urine Glucose (UA) Negative (Negative) Urine Ketones Negative (Negative) Urine Blood Negative (Negative) Urine Nitrite Negative (Negative) Urine Bilirubin Negative (Negative) Urine Urobilinogen Negative (Negative) Ur Leukocyte Esterase Trace H (Negative) Urine WBC (Auto) 0-5 (0-5) /hpf Urine RBC (Auto) 0-2 (0-2) /hpf U Hyaline Cast (Auto) 0-2 (0-2) /lpf U Epithel Cells (Auto) 0-2 (0-2) /hpf Urine Bacteria (Auto) None Seen (None Seen) Urine Comment Imaging Data Chest x-ray: Attestation: I personally reviewed and interpreted this imaging study as follows: My impression: Chest x-ray negative. Airway clear. No pneumothorax. No consolidation. No cardiomegaly or cephalization.. No free air under the diaphragm. No fractures of the skeletal structures. Radiologist's impression: XR chest 1V portable HISTORY: 80 years-old Female Chest pain, nonspecific COMPARISON: 04/21/2024 TECHNIQUE: AP view of the chest FINDINGS: Cardiomediastinal and hilar silhouettes are similar to prior. Mild chronic interstitial coarsening. No pneumothorax, large pleural effusion or overt pulmonary edema. There is mild blunting of the lateral costophrenic angles. Mild linear left basilar atelectasis versus scarring. Bones of the chest appear grossly intact. IMPRESSION: No acute process. ACT 112: Negative or not required by law. The above report was generated using voice recognition software. It may contain grammatical, syntax or spelling errors. Electronically signed by: Dl Peralta M.D. 07/15/2025 11:27 AM Dictated: 07/15/25 1126 Transcribed: 07/15/[address] scan - head: Radiologist's impression: CT head/brain wo con CLINICAL HISTORY: 80 years-old Female with weakness. Acute weakness TECHNIQUE: Multiple axial CT images of the head were obtained without contrast. A dose lowering technique was utilized adhering to the principles of ALARA. CT DOSE: 625.8 mGy.cm COMPARISON: 10/02/2019 FINDINGS: No acute intracranial hemorrhage, midline shift, intracranial mass, hydrocephalus, territorial ischemia or abnormal extra-axial collection. Calcifications of the falx cerebri redemonstrated. Involutional changes with probable chronic microvascular ischemic disease. Partially empty sella. The calvarium is intact. Mild mucoperiosteal thickening of the paranasal sinuses. The mastoid air cells are clear. Unremarkable soft tissues and orbits. IMPRESSION: No acute intracranial abnormality. ACT 112: Negative or not required by law. The above report was generated using voice recognition software. It may contain grammatical, syntax or spelling errors. Electronically signed by: Dl Peralta M.D. 07/15/2025 12:48 PM Dictated: 07/15/25 1245 Transcribed: 07/15/25 1245 ECG Data Attestation: I personally reviewed and interpreted this ECG as follows: Rate (beats per minute): 80 Rhythm: normal sinus Findings: no ST depression, no ST elevation or no prolonged QT MDM Narrative 1116: The patient was evaluated in room B4. A complete history and physical exam was performed Cardiac monitoring: An order was placed for continuous cardiac monitoring. The monitor shows a rate of 80 with sinus rhythm interpreted by me 1335: Vital signs stable. Labs and imaging unremarkable. Patient will be admitted to the [facility] team for chest pain rule out ACS. Impression & Plan Chest pain Discharge Plan Visit Data Chief Complaint: Cardiac Assessment Stated Complaint: WEAK, FATIGUE, HIGH BP, HIGH HEART RATE ED Provider: Brian Trivedi Discharge Problem: Chest pain Patient Disposition: Admitted As Inpatient Condition: Fair Discharge Instructions Interventions: ED Discharge Assessment Last Done: 07/15/25 15:33 Discharge Problem: Chest pain Qualifiers: Chest pain type: unspecified Qualified Code(s): R07.9 - Chest pain, unspecified
[2025-07-15] MEDS: ACETAMINOPHEN 1,000 MG/100 ML VIAL IV STA (18:01)
[2025-07-15] MEDS: APIXABAN 5 MG TABLET PO SCH (20:48)
[2025-07-15] MEDS: ACETAMINOPHEN 500 MG TAB PO PRN (20:48)
[2025-07-15] MEDS: LORazepam 0.5 MG TAB PO STA (23:35)
[2025-07-16] MEDS: GADOBUTROL 30ML VIAL IV ONE (00:38)
--- NOTE | 2025-07-16 02:13 | Magnetic Resonance Report ---
EXAM: MR cervical spine wo/w con CLINICAL HISTORY: Bilateral arm weakness numbness. TECHNIQUE: MRI of the cervical spine was performed with and without contrast 8 mL Gadavist was administrated. Sequences obtained included sagittal T1-weighted, T2-weighted, STIR (Short Tau Inversion Recovery), and axial T2-weighted sequences. Additional sequences such as gradient echo (GRE) or post-contrast T1-weighted images may have been included based on clinical indication. COMPARISON: No previous studies are available for comparison. FINDINGS: Vertebral Alignment: Normal alignment of the cervical spine without evidence of fracture. Minimal retrolithesis of C4 and C5 (degenerative). Vertebral Bodies and Intervertebral Discs: Round area of high T1 and T2 signal is seen at the body of the C7 vertebra, suggestive of haemangioma. Cervical spondylosis with anterior and posterior marginal osteophytes. There is desiccation of the intervertebral discs with decreased T2 signal. Normal vertebral body height and alignment. [place]-cn-cujcc analysis: C2-C3: There is no significant disc pathology. C3-C4: Disc osteophyte complex about 2 mm causing mild indentation of the thecal sac and right neural foraminal stenosis with mild indentation of the right exiting nerve root. C4-C5: Disc osteophyte complex about 2.1 mm causing mild indentation of the thecal sac and bilateral neural foraminal stenosis with mild indentation of the bilateral exiting nerve roots. C5-C6: Disc osteophyte complex about 2 mm causing mild indentation of the thecal sac and bilateral neural foraminal stenosis with mild indentation of the bilateral exiting nerve roots. C6-C7: Disc osteophyte complex about 3 mm causing mild indentation of the thecal sac and left neural foraminal stenosis with mild indentation of the left exiting nerve root. C7-T1: There is no significant disc pathology. Mild osteoarthritic changes of the facet and uncovertebral joints. Soft Tissues: Paraspinal soft tissues appear normal without evidence of abnormal signal intensity or mass lesions. Vascular Structures: Normal appearance of the visualized vascular structures. No evidence of aneurysm, dissection, or significant atherosclerosis. Normal enhancement post-contrast. IMPRESSION: 1. Minimal retrolithesis of C4 and C5 (degenerative). 2. Cervical spondylosis with disc osteophyte complex at multiple levels as described. 3. No areas of abnormal signal or abnormal enhancement within the spinal cord. 4. C7 vertebral body haemangioma. Electronically signed by Uriel Ratliff 07-16-2025 02:13 AM
--- NOTE | 2025-07-16 02:22 | Magnetic Resonance Report ---
EXAM: MR brain MS wo/w con CLINICAL HISTORY: Bilateral arm leg weakness; numbness bilateral arms TECHNIQUE: MRI of the brain was performed with and without intravenous contrast administration (8 mL Gadavist). Sequences obtained include pre-contrast and post-contrast T1-weighted, T2-weighted, FLAIR (Fluid-Attenuated Inversion Recovery), DWI (Diffusion-Weighted Imaging), and ADC (Apparent Diffusion Coefficient) sequences. COMPARISON: CT head dated 10/02/2019 reviewed. FINDINGS: Brain Parenchyma: No evidence of acute infarction or hemorrhage. Multiple small discrete FLAIR hyperintense foci in the subcortical and deep white matter of bilateral cerebral hemispheres with periventricular hyperintensity, without diffusion restriction, likely representing mild chronic microvascular ischemic changes. Fazekas grade I rather than demyelinating plaques. No infratentorial or callosal lesion or septo-callosal demyelinating plaques. Post-Contrast Findings: No abnormal enhancement of the brain parenchyma or meninges. Ventricles and Sulci: Ventricular system is prominent. Sulci and cisternal spaces are prominent. Brainstem and Cerebellum: Normal appearance of the brainstem and cerebellum without focal lesions or abnormal enhancement. Skull and Calvarium: No evidence of skull vault lesions or abnormal marrow signal within the calvarium. Incidental minimal mucosal thickening in ethmoid air cells and bilateral maxillary sinuses. Regressed. Metal-related artifacts in the region of the right upper alveolus. IMPRESSION: 1. No evidence of acute infarction or hemorrhage. 2. Multiple small discrete FLAIR hyperintense foci in the subcortical and deep white matter of bilateral cerebral hemispheres with periventricular hyperintensity, without diffusion restriction, likely representing mild chronic microvascular ischemic changes. Fazekas grade I rather than demyelinating plaques. Recommended correlation with prior clinical details. More conspicuous in the current study due to different imaging modalities. 3. No abnormal enhancement of the brain parenchyma or meninges. 4. Senile cortical involutional changes. Progressed. Electronically signed by Uriel Ratliff 07-16-2025 02:22 AM
[2025-07-16 07:24] LABS: Hematocrit (blood only) 33.4 % (37.0-47.0); Hemoglobin 11.6 g/dL (12.0-16.0); Immature Granulocytes # (auto) 0.03 K/uL (0.01-0.20); Immature Granulocytes % (auto) 0.4 %; Mean Corpuscular Hemoglobin 33.2 pg (25.0-34.0); Mean Corpuscular Volume 95.7 fL (80.0-100.0); Platelet Count 196 K/uL (130-400); RDW Standard Deviation 42.6 fL (36.4-46.3); Red Blood Count 3.49 M/uL (4.20-5.40); White Blood Count 8.31 K/ul (4.8-10.8)
[2025-07-16 07:52] LABS: Anion Gap 6.0 (3-11); Blood Urea Nitrogen 13.0 mg/dl (6-23); Calcium 8.8 mg/dl (8.6-10.3); Carbon Dioxide 27.0 mmol/L (21-32); Chloride 104.0 mmol/L (98-107); Creatine Kinase 54.0 U/L (26-192); Creatinine Clr Calc Pharmacy 69.6 ml/min; Glucose 85.0 mg/dl (70-99(Fasting)); Potassium 3.8 mmol/L (3.5-5.1); Sodium 137.0 mmol/L (136-145)
[2025-07-16 08:14] LABS: Vitamin B12 > 1500 pg/ml (180-914)
[2025-07-16] MEDS: MULTIVITAMIN TAB PO SCH (08:18)
[2025-07-16] MEDS: LOSARTAN POTASSIUM 50 MG TAB PO SCH (08:19)
[2025-07-16] MEDS: CHOLECALCIFEROL 25 MCG (1000 UNITS) TAB PO SCH (08:19)
[2025-07-16] MEDS: AMIODARONE 200 MG TAB PO SCH (08:19)
--- NOTE | 2025-07-16 08:39 | Electrocardiogram Report ---
Test Reason : Blood Pressure : */* mmHG Vent. Rate : 80 BPM Atrial Rate : 80 BPM P-R Int : 182 ms QRS Dur : 94 ms QT Int : 388 ms P-R-T Axes : 76 25 53 degrees QTcB Int : 447 ms Normal sinus rhythm Poor R wave progression, consider anterior ND vs. lead placement vs. LVH Normal ECG When compared with ECG of 21-Apr-2024 10:00, No significant change was found Confirmed by Martha Ribeiro ([id number]) on 07/16/2025 8:39:32 AM Referred By: REFERRED SELF Confirmed By: Martha Ribeiro
--- NOTE | 2025-07-16 12:33 | XCELERA ---
[id number]\[id number]
--- NOTE | 2025-07-16 14:32 | Hospitalist Progress Note ---
Date of Service July 16, 2025 Assessment & Plan (1) Weakness: (2) Balance problem: (3) Hypertension: (4) Exertional dyspnea: Plan 80yo F with PMHx of paroxysmal atrial fibrillation, anxiety/depression, fibromyalgia, GERD, Vitamin D deficiency, allergic rhinitis who presented with worsening dyspnea on exertion and chest pressure for at least the past month. Increased weakness and balance issues since switching BP medication from amlodipine to doxazosin (and notes BPs actually worse on this) while waiting for outpatient work-up for possible underlying Myasthenia Gravis. CXR noting no acute process. Mild chronic interstitial coarsening, no PTX effusion or overy pulmonary edema. Does note mild blunting costophrenic angles and mild atelectasis vs scarring #Weakness | Balance Issues - Pt feels she is back to baseline; 07/[address] w/out acute changes, does note empty sella; UA 07/15 negative; Orthostatics neg 07/15 -Discussion w/ pt 07/16 revealed sudden worsening of sx following changes in medications, will retrial previous HTN med -Continue to hold doxazosin & Buspar - consider medication contribution of sx vs deconditioning -MG studies ordered -Fall precautions -PT/OT consulted -CBC, BMP in AM #HTN - Dr Soliz outpt; recently switched from amlodipine to doxazosin -Doxazosin held as above -Retrial Amlodipine 5mg PO daily while continuing to hold Buspar -Continue Losartan 100mg daily #Exertional Dyspnea | Chest Pressure - RESOLVED; Pt notes did not experience true CP, just felt her heart was racing; 07/15 serial troponins negative; 07/15 CXR w/ no acute processes; 07/16 Echo w/ moderate LVH and EF 60-65%, moderate LAE, mild/mod mitral regurgitation and mild tricuspid regurgitation - comparable to 07/28/22 study -EKG w/ CP, Nitro SL prn -Hydralazine IV prn -Monitor on telemetry #Paroxysmal atrial fibrillation - no acute concerns -Continue Eliquis BID -Continue Amiodarone 200mg daily --> ? if med contributing to lung sx; consider dedicated CT in future if ongoing/worsening sx. No hypoxia noted. CXR w/ chronic thickening, no consolidation #GERD - no acute concerns #Anxiety | Depression | Fibromyalgia - no acute concerns -Hold Buspar as above DVT proph: eliquis BID Dispo: Med/Tele - observe for sx w/ retrial meds, awaiting PT/OT Consider d/c 07/17 if no sx or issues overnight Admission and Anticipated Discharge Date Admission Date: July 15, 2025 Subjective Pt was laying in bed today in NAD, at bedside. Discussed with pt her reason for admission and she notes that she was more concerned with her dizziness/lightheadedness and weakness. She notes that she wasn't experiencing true chest pain, more so "feeling like her heart is racing". Pt states that she would experience occasional episodes of dizziness which she previously brought up with her [place]. Her Amlodipine was then switched to Doxazosin and pt notes that her sx suddenly became severe following initiation of that medication. Pt notes that overall today she feels that she is back to her baseline and doesn't feel weak or lightheaded. Pt denies H/A, cough, congestion, SOB, CP, palpitations, N/V/D, constipation, and changes in appetite. Telemetry: Sinus 60s-70s overnight, Sinus 90s in AM Review of Systems Review of Systems: All systems reviewed & are unremarkable except as noted in Subjective Physical Exam Physical Exam: General: Pt is a 80 y/o overweight F in NAD in bed, at bedside. VS: reviewed, remarkable - BP 153/33 Skin: Warm and dry; no lesions or ulcerations Respiratory: CTA bilat, no adventitious sounds noted. Chest expansion is full and symmetrical Cardio: RRR no murmurs Abdomen: Round, normoactive BS x4, nontender to palpation MSK: FROM of extremities, no deformities Extremities: no edema Neuro: A&Ox4, cooperative Results & Data Results & Data Vital Signs (Past 12 Hours) Vital Signs Temp Pulse Pulse Resp BP Pulse Ox O2 Del Method 07/16/25 11:53 98.2 F 74 16 153/55 H 93 Room Air 07/16/25 09:58 172/78 H 07/16/25 08:00 68 07/16/25 07:55 97.9 F 71 18 177/87 H 94 Room Air 07/16/25 03:07 97.9 F 76 18 167/74 H 94 Room Air Laboratory Results Reviewed: CBC, BMP Diagnostic Findings Reviewed: Echocardiogram PG Care Time/CCT Total # of Minutes Spent Total Time Spent with Patient: Total time spent is greater than 50% in coordination of care (as documented) at patient's floor/unit and/or counseling patient: Coding Level of Care Code 76202 SUB INP/OBS CARE 2/35MIN Diagnoses Weakness R53.1 Balance problem R26.89 Hypertension I10 Exertional dyspnea R06.09
[2025-07-17 07:02] LABS: Hematocrit (blood only) 32.6 % (37.0-47.0); Hemoglobin 11.3 g/dL (12.0-16.0); Immature Granulocytes # (auto) 0.02 K/uL (0.01-0.20); Immature Granulocytes % (auto) 0.2 %; Mean Corpuscular Hemoglobin 32.8 pg (25.0-34.0); Mean Corpuscular Volume 94.5 fL (80.0-100.0); Platelet Count 199 K/uL (130-400); RDW Standard Deviation 42.5 fL (36.4-46.3); Red Blood Count 3.45 M/uL (4.20-5.40); White Blood Count 8.92 K/ul (4.8-10.8)
[2025-07-17 07:54] LABS: Anion Gap 7.0 (3-11); Blood Urea Nitrogen 18.0 mg/dl (6-23); Calcium 8.8 mg/dl (8.6-10.3); Carbon Dioxide 25.0 mmol/L (21-32); Chloride 103.0 mmol/L (98-107); Creatinine Clr Calc Pharmacy 67.7 ml/min; Glucose 87.0 mg/dl (70-99(Fasting)); Potassium 4.2 mmol/L (3.5-5.1); Sodium 135.0 mmol/L (136-145)
--- NOTE | 2025-07-17 20:01 | Hospitalist Progress Note ---
"Date of Service July 17, 2025 Assessment & Plan (1) Exertional dyspnea: (2) Chest pressure: (3) Hypertension: (4) Exercise-induced weakness: (5) Paroxysmal atrial fibrillation: (6) Anxiety and depression: (7) Acid reflux disease: (8) Fibromyalgia: Plan 80yo F with PMHx of paroxysmal atrial fibrillation, anxiety/depression, fibromyalgia, GERD, Vitamin D deficiency, allergic rhinitis who presented with worsening dyspnea on exertion and chest pressure for at least the past month. Increased weakness and balance issues since switching BP medication from amlodipine to doxazosin (and notes BPs actually worse on this) while waiting for outpatient work-up for possible underlying Myasthenia Gravis. CXR noting no acute process. Mild chronic interstitial coarsening, no PTX effusion or overy pulmonary edema. Does note mild blunting costophrenic angles and mild atelectasis vs scarring #Weakness | Balance Issues - Pt feels she is back to baseline; 07/[address] w/out acute changes, does note empty sella; UA 07/15 negative; Orthostatics neg 07/15 -Discussion w/ pt 07/16 revealed sudden worsening of sx following changes in medications, will retrial previous HTN med -Continue to hold doxazosin & Buspar - consider medication contribution of sx vs deconditioning -MG studies ordered -Fall precautions -PT/OT consulted -Neuro Consulted -CBC, BMP in AM #HTN - Dr Soliz outpt; recently switched from amlodipine to doxazosin -Doxazosin held as above -Retrial Amlodipine 5mg PO daily while continuing to hold Buspar -Continue Losartan 100mg daily #Exertional Dyspnea | Chest Pressure - RESOLVED; Pt notes did not experience true CP, just felt her heart was racing; 07/15 serial troponins negative; 07/15 CXR w/ no acute processes; 07/16 Echo w/ moderate LVH and EF 60-65%, moderate LAE, mild/mod mitral regurgitation and mild tricuspid regurgitation - comparable to 07/28/22 study -EKG w/ CP, Nitro SL prn -Hydralazine IV prn -Monitor on telemetry #Paroxysmal atrial fibrillation - no acute concerns -Continue Eliquis BID -Continue Amiodarone 200mg daily --> ? if med contributing to lung sx; consider dedicated CT in future if ongoing/worsening sx. No hypoxia noted. CXR w/ chronic thickening, no consolidation #GERD - no acute concerns #Anxiety | Depression | Fibromyalgia - no acute concerns -Hold Buspar as above DVT proph: bambilarrytawny BID Dispo: Med/Tele - observe for sx w/ retrial meds, awaiting PT/OT + Neuro eval Consider d/c 07/17 if no sx or issues overnight Admission and Anticipated Discharge Date Admission Date: July 15, 2025 Subjective Pt was sitting in bed in NAD, at bedside. Patient notes that she continues to have sudden onset of dizziness and weakness. Patient states she is not able to predict when episodes of dizziness and weakness will occur. Patient states that she would be interested in talking to neurology as she was told in the past that there is concerned she may have MS and would like to be followed more closely by a neurologist.Patient otherwise denies cough, congestion, SOB, CP, palpitations, changes in appetite, abdominal pain and discomfort, nausea vomiting and diarrhea. Telemetry: Sinus 90s w/ rare PVC in AM, Sinus 80s overnight Review of Systems Review of Systems: All systems reviewed & are unremarkable except as noted in Subjective Physical Exam Physical Exam: General: Pt is a 80 y/o overweight F in NAD in bed, at bedside. VS: reviewed, remarkable - BP 151/75 Skin: Warm and dry; no lesions or ulcerations Respiratory: CTA bilat, no adventitious sounds noted. Chest expansion is full and symmetrical Cardio: RRR no murmurs Abdomen: Round, normoactive BS x4, nontender to palpation MSK: FROM of extremities, no deformities Extremities: no edema, strength +5 throughout Neuro: A&Ox4, cooperative; sensation equal to extremities bilat; EOMs WNL; Neuro exam benign Results & Data Results & Data Vital Signs (Past 12 Hours) Vital Signs Temp Pulse Pulse Resp BP BP Pulse Ox 07/17/25 19:54 98.1 F 77 20 151/75 H 98 07/17/25 15:26 97.9 F 69 18 168/76 H 95 07/17/25 13:02 79 07/17/25 08:50 07/17/25 08:27 98.2 F 79 16 154/65 H 95 O2 Del Method 07/17/25 19:54 Room Air 07/17/25 15:26 Room Air 07/17/25 13:02 07/17/25 08:50 Room Air 07/17/25 08:27 Room Air Laboratory Results Reviewed: CBC, BMP PG Care Time/CCT Total # of Minutes Spent Total Time Spent with Patient: Total time spent is greater than 50% in coordination of care (as documented) at patient's floor/unit and/or counseling patient: Coding Level of Care Code 22121 SUB INP/OBS CARE 2/35MIN Diagnoses Exertional dyspnea R06.09 Chest pressure R07.89 Hypertension I10 Exercise-induced weakness M62.81 Paroxysmal atrial fibrillation I48.0 Anxiety and depression F41.9; F32.A Acid reflux disease K21.9 Fibromyalgia M79.7"
[2025-07-18 06:39] LABS: Hematocrit (blood only) 33.3 % (37.0-47.0); Hemoglobin 11.6 g/dL (12.0-16.0); Immature Granulocytes # (auto) 0.05 K/uL (0.01-0.20); Immature Granulocytes % (auto) 0.6 %; Mean Corpuscular Hemoglobin 32.9 pg (25.0-34.0); Mean Corpuscular Volume 94.3 fL (80.0-100.0); Platelet Count 216 K/uL (130-400); RDW Standard Deviation 42.3 fL (36.4-46.3); Red Blood Count 3.53 M/uL (4.20-5.40); White Blood Count 8.90 K/ul (4.8-10.8)
[2025-07-18 07:03] LABS: Anion Gap 9.0 (3-11); Blood Urea Nitrogen 18.0 mg/dl (6-23); Calcium 8.9 mg/dl (8.6-10.3); Carbon Dioxide 24.0 mmol/L (21-32); Chloride 102.0 mmol/L (98-107); Creatinine Clr Calc Pharmacy 59.0 ml/min; Glucose 85.0 mg/dl (70-99(Fasting)); Potassium 4.1 mmol/L (3.5-5.1); Sodium 135.0 mmol/L (136-145)
[2025-07-18 12:26] VITALS: BP 179/69; RESP 17; TEMP 98.4; O2SAT 95
[2025-07-18 14:25] VITALS: PULSE 71
--- NOTE | 2025-07-18 14:39 | Discharge Summary ---
"Discharge Summary Date of Service July 18, 2025 Principal Dx & Hospital Course #1 = Principal Diagnosis (1) Exertional dyspnea: (2) Chest pressure: (3) Hypertension: (4) Exercise-induced weakness: (5) Paroxysmal atrial fibrillation: (6) Anxiety and depression: (7) Acid reflux disease: (8) Fibromyalgia: Plan #Weakness | Balance Issues - 80yo F with PMHx of paroxysmal atrial fibrillation, anxiety/depression, fibromyalgia, GERD, Vitamin D deficiency, allergic rhinitis who presented with worsening dyspnea on exertion and chest pressure for at least the past month. Increased weakness and balance issues since switching BP medication from amlodipine to doxazosin (and notes BPs actually worse on this) while waiting for outpatient work-up for possible underlying Myasthenia Gravis. 07/[address] was without acte changes, but did note an empty sella; UA on 07/15 was negative; and orthostatics on 07/15 were negative. An MG pannel was ordered during pt's stay and results are still pending. Pt was transitioned from Doxazosin back to Amlodipine, pt states that her sx have improved after discontinuing Doxazosin. Pt's Buspar was held during inpatient stay and should continue to be held. Neurology was also consulted during patients stay and encouraged patient to maintain outpatient follow-up. Pt should follow-up with PCP within 1 week of discharge. #HTN - Doxazosin discontinued, restarted on Amlodipine 5mg PO daily. Pt should continue Losartan as prescribed. #Exertional Dyspnea | Chest Pressure - RESOLVED; Pt notes did not experience true CP, just felt her heart was racing; 07/15 serial troponins negative; 07/15 CXR w/ no acute processes; 07/16 Echo w/ moderate LVH and EF 60-65%, moderate LAE, mild/mod mitral regurgitation and mild tricuspid regurgitation which was comparable to 07/28/22 study. #Paroxysmal atrial fibrillation - No acute concerns. Pt should continue Eliquis BID and Amiodarone as prescribed. Note: CXR did demonstrate chronic thickening, it's worth reassessing in future to R/O possibility of Amiodarone contributing to lung sx. #GERD - No acute concerns, pt should continue home regimen. #Anxiety | Depression | Fibromyalgia - No acute concerns, pt should continue to hold Buspar. Dispo: Home, Self-care. Maintain outpatient follow-up appointments Admission HPI Per Admitting Provider 80yo female presented with concerns for progressive exertional dyspnea and chest pressure. None currently at rest and reports improvement once she does rest after activity. She reports symptoms feel like they have been getting worse over the past month and has associated feeling of being unsteady on her feet and feeling like she should be using a cane for ambulation. Did have some burning in her legs and back down her buttocks which also resolved with rest. She reports she is to have follow up with Neurology regarding possible underlying Myasthenia Gravis. Notable has some drooping of eyelids and weakness that improves with rest, which is why she reports her PCP believes potentially having underlying MG and has Neurology referral but not having appointment until this upcoming October which is distressing. She notes had stopped amlodipine with cardiology and started on doxazosin and believes that her blood pressure is actually WORSE since being on this. Also recently picked up rx for Buspar and took a dose. Both medications new in the past month. Does have some chills, no fever or cough/sputum production. No sick contacts. No abdominal pain, nausea, vomiting or diarrhea. No smoking, etoh use. polysomnographic technologist in room to perform ECHO at this time. Currently without SOB/CP at rest. No longer on any PPI updated at bedside. Full code. Discharge Exam General: Pt is a 80 y/o overweight F in NAD in bed, at bedside. VS: reviewed, remarkable - BP 161/87 Respiratory: CTA bilat, no adventitious sounds noted. Chest expansion is full and symmetrical Cardio: RRR no murmurs Abdomen: Round, normoactive BS x4, nontender to palpation Discharge Plan Discharge Items Patient Disposition: Home - Self-Care Reason For Visit: EXERTIONAL SOB, CHEST PRESSURE Discharge Diagnosis: Weakness, fatiguablility Condition on Discharge: Fair Activity: Resume your previous activity Non-emergency contact: Primary Care Provider and Neurologist Call non-emergency contact if: you have any medication questions, your symptoms worsen and your pain is not controlled Follow-up/Referrals: Abelino Craven MD [Physician] - Tyrese Morrell DO [Primary Care Provider] - 07/26/25 10:30 am (Follow-up within 3 days) Diet: Regular Addtl Attending Provider Instructions: You were admitted to the hospital for exertional dyspnea and chest discomfort. While you were in the hospital serial lab work and an EKG were not concerning for any acute cardiovascular etiology. An Echocardiogram was performed on 07/16 and had results comparable to a study done in 07/28/22. You additionally noted experiencing some weakness and balance disturbances while you were here. 07/[address] was without any acte changes; UA on 07/15 was negative; and orthostatics on 07/15 were negative. An MG panel was ordered during your stay and the results are still pending. You were transitioned from Doxazosin back to Amlodipine, which you stated helped alleviate the frequency of your symptoms. You should continue to hold your Buspar. Please follow up with your PCP within 3 days of discharge for close management of your BP and gradual lowering. Please follow-up outpatient with Neurology as planned. Medications: Your medication list has been reviewed and reconciled upon discharge to ensure accuracy and continuity of care. An updated list of all your medications is included with your hospital discharge paperwork. Please review this list closely, and make note of any changes. We sent a new medication called Amlodipine to your pharmacy. Take every morning starting 07/19. This is an anti-hypertensive to help with your blood pressure. Take your medications as instructed; do not skip a dose of your medicines. Make sure all of your doctors know every medicine you are taking (including over-the- counter medicines, vitamins, and supplements). Call your primary care provider before taking any new medicines (including over- the-counter medicines, vitamins, and supplements), because some of these may interact with your current medications, or may make your symptoms worse. Tell your primary care provider if you cannot afford your medications. Activity: You can do normal everyday activities as your body allows. Take rest breaks if you feel tired. Do not overexert. Stop activity if you have pain, shortness of breath or feel dizzy. Follow-up appointments: Make an appointment with your primary care physician within one week of discharge. A copy of this summary will be sent to them. Every time you see your primary care physician, or any other doctor, bring your medication list, and a list of questions. CONTACT YOUR PRIMARY CARE PROVIDER if you experience any of the following: Shortness of breath or difficulty breathing Fevers or chills Feeling tired with normal activity or experiencing dizziness or fainting Difficulty following your treatment plan, or difficulty taking medications CALL 911 OR GO TO THE EMERGENCY DEPARTMENT if you experience any of the following: Severe abdominal pain or nausea/vomiting Severe chest pain, or chest pain that radiates (moves) to your jaw or arm Sudden, severe shortness of breath or difficulty breathing Thank you for allowing us to participate in your care. Pending Studies at Discharge: Yes Studies:: Myasthenia Gravis Panel Stand-Alone Forms: [facility], Smoking Cessation Medications and DC Order Prescriptions: New amlodipine 5 mg Tablet 5 mg PO QAM 30 Days Qty: 30 0RF Continued amiodarone 200 mg tablet 200 mg PO QAM Qty: 90 3RF Rx Instructions: Take 1 tablet by mouth every day. Eliquis 5 mg tablet 5 mg PO BID 90 Days Qty: 180 3RF ibandronate 150 mg tablet 150 mg PO MONTHLY Qty: 12 0RF Rx Instructions: TAKES ON THE 17 OF THE MONTH. cholecalciferol (vitamin D3) 1,000 unit capsule 1,000 units PO DAILY Qty: 90 multivitamin [Daily Multi-Vitamin] Tablet 1 tab PO .DAILY @NOON mecobalamin (vitamin B12) 1,000 mcg tablet,disintegrating 1,000 mcg sublingual .DAILY @ NOON Rx Instructions: place tablet under tongue and allow to dissolve for at least30 secs before swallowing omega 0-ajp-cgv-fish oil 850-1,400 mg capsule 1 cap PO QAM magnesium glycinate 100 mg magnesium capsule 400 mg PO HS losartan 100 mg tablet 100 mg PO QAM Discontinued buspirone 5 mg tablet 5 mg PO TID PRN (Reason: anxiety) Qty: 60 3RF doxazosin 1 mg tablet 1 mg PO HS Discharge Orders: Discharge Order (Routine); Ordered 07/18/25 Ordered By: [place] Admission Data Admit Date/Time: 07/17/25 19:59 Attending Provider: Magdy Roberts Admit Provider: Jad Powers Primary Care Provider: Tyrese Morrell. Other Providers: Jad Powers; Abelino Craven; Adolfo Rice; Priyanka Lopez; Nataliia Pantoja; Chelsey Harrison Other Interventions: Discharge Summary Assessment (RN) Last Done: 07/18/25 14:45 Hospital Stay Data Consultations 12/07/25 13:33 ED Decision to Admit Stat 07/17/25 20:07 Consult Neurology Routine Diagnostic Imagining Performed 07/15/25 11:39 CT head/brain wo con Stat 07/15/25 20:20 MR brain MS wo/w con Routine MR cervical spine wo/w con Routine Discharge Instructions Given to Patient (Per Discharging Provider) You were admitted to the hospital for exertional dyspnea and chest discomfort. While you were in the hospital serial lab work and an EKG were not concerning for any acute cardiovascular etiology. An Echocardiogram was performed on 07/16 and had results comparable to a study done in 07/28/22. You additionally noted experiencing some weakness and balance disturbances while you were here. 07/[address] was without any acte changes; UA on 07/15 was negative; and orthostatics on 07/15 were negative. An MG panel was ordered during your stay and the results are still pending. You were transitioned from Doxazosin back to Amlodipine, which you stated helped alleviate the frequency of your symptoms. You should continue to hold your Buspar. Please follow up with your PCP within 3 days of discharge for close management of your BP and gradual lowering. Please follow-up outpatient with Neurology as planned. Medications: Your medication list has been reviewed and reconciled upon discharge to ensure accuracy and continuity of care. An updated list of all your medications is included with your hospital discharge paperwork. Please review this list closely, and make note of any changes. We sent a new medication called Amlodipine to your pharmacy. Take every morning starting 12. This is an anti-hypertensive to help with your blood pressure. Take your medications as instructed; do not skip a dose of your medicines. Make sure all of your doctors know every medicine you are taking (including btqd-nhe-ytaiwnl medicines, vitamins, and supplements). Call your primary care provider before taking any new medicines (including over- the-counter medicines, vitamins, and supplements), because some of these may interact with your current medications, or may make your symptoms worse. Tell your primary care provider if you cannot afford your medications. Activity: You can do normal everyday activities as your body allows. Take rest breaks if you feel tired. Do not overexert. Stop activity if you have pain, shortness of breath or feel dizzy. Follow-up appointments: Make an appointment with your primary care physician within one week of discharge. A copy of this summary will be sent to them. Every time you see your primary care physician, or any other doctor, bring your medication list, and a list of questions. CONTACT YOUR PRIMARY CARE PROVIDER if you experience any of the following: Shortness of breath or difficulty breathing Fevers or chills Feeling tired with normal activity or experiencing dizziness or fainting Difficulty following your treatment plan, or difficulty taking medications CALL 911 OR GO TO THE EMERGENCY DEPARTMENT if you experience any of the following: Severe abdominal pain or nausea/vomiting Severe chest pain, or chest pain that radiates (moves) to your jaw or arm Sudden, severe shortness of breath or difficulty breathing Thank you for allowing us to participate in your care. Total Time Total Time Spent Total Time Spent (In Minutes): Time spent day of discharge 40 minutes including direct patient care, medication reconciliation, documentation, review of labs and images, and coordination of care. Coding Level of Care Code 93527 INP/OBS DISCH >30 MIN Diagnoses Exertional dyspnea R06.09 Chest pressure R07.89 Hypertension I10 Exercise-induced weakness M62.81 Paroxysmal atrial fibrillation I48.0 Anxiety and depression F41.9; F32.A Acid reflux disease K21.9 Fibromyalgia M79.7"
--- NOTE | 2025-07-18 16:09 | Neurology Consultation ---
Date of Consultation July 18, 2025 History of Present Illness Attending Physician: Magdy Roberts MD History of Present Illness Case reviewed, discussed with hospitalist, brain MRI reviewed. We will see her for an outpatient neurology hospital follow-up. Does not require inpatient neurology consultation at this time. Allergies Allergy/AdvReac Type Severity Reaction Status Date / Time celecoxib Allergy Intermediate RASH Verified 07/15/25 14:52 levofloxacin Allergy Intermediate HIVES Verified 07/15/25 14:52 meperidine AdvReac Intermediate n/v Verified 07/15/25 14:52 sertraline AdvReac Mild Verified 07/15/25 14:52 Home Medications Medication Instructions Recorded Confirmed Type cholecalciferol (vitamin D3) 25 1,000 units PO DAILY #90 caps 05/15/19 07/15/25 History mcg (1,000 unit) capsule multivitamin (Daily Multi-Vitamin 1 tab PO .DAILY @NOON 02/02/20 07/15/25 Histo ry tablet) mecobalamin (vitamin B12) 1,000 1,000 mcg sublingual .DAILY @ NOON 03/25/22 07/15/25 History mcg disintegrating tablet,sublingual amiodarone 200 mg tablet 200 mg PO QAM #90 tabs 09/05/24 07/15/25 Rx apixaban 5 mg tablet (Eliquis) 5 mg PO BID 90 days #180 tabs 10/31/24 07/15/25 Rx ibandronate 150 mg tablet 150 mg PO MONTHLY #12 tabs 05/17/25 07/15/25 Rx magnesium glycinate 400 mg PO HS 07/02/25 07/15/25 History omega 3 850 zr-dmr-ipp-fish oil 1 cap PO QAM 07/02/25 07/15/25 History 1,400 mg capsule losartan 100 mg tablet 100 mg PO QAM 07/15/25 07/15/25 History amlodipine 5 mg tablet 5 mg PO QAM 30 days #30 tabs 07/18/25 Rx Patient History Medical History Hypoxemia Acute hyponatremia Acute dyspnea Diarrhea Acute dehydration Constipation Carpal tunnel syndrome of right wrist History of femur fracture (~2020) left hip Atrial fibrillation with RVR Family history of colon cancer in father Chest pain Community acquired pneumonia History of wrist fracture Left History of diverticulitis History of hyperthyroidism Vertigo Surgical History History of carpal tunnel surgery of left wrist 10-21-21 Dr Marin, [facility] History of hemorrhoidectomy History of open reduction and internal fixation (ORIF) procedure Lt femur H/O tubal ligation H/O oral surgery Hx of cholecystectomy S/P colon resection 2/2 diverticular disease S/P tonsillectomy Hx of appendectomy Family History Mother Breast cancer Hypertension Father Prostate cancer Colorectal cancer Hypertension Other No family history of adverse response to anesthesia Denies family history of Ovarian cancer Diabetes Myocardial infarction Social History Smoking Status: Never smoker Second Hand Exposure: No; Do You Dip or Chew Tobacco: No; Hx Alcohol Use: No Hx Substance Use: No Preferred Language: [place] Communication Ability: Effective Visual Impairment: Limited Hearing Ability: Normal Coil Winder Hand Required: No Beliefs That Will Affect Care: None marital status: Current Living Situation: Spouse Current Living Situation Comment: lives at home with current occupational status: retired How many Children do You have: 2 Feels Safe at Home: Yes Childhood Exposure to Second-Hand Smoke: Yes Diet: regular caffeine: No during the past year weight has: remained stable Dental Care, Regularly: No Physical Activity Frequency: 3-4 Times per Week Seatbelt Use: always Sunscreen Use: No Do you think of yourself as: straight/heterosexual Sexual Activity: has been sexually active, but not for at least 12 months Gender Identity: Female Assistive Devices: None Results & Data Vital Signs (Past 12 Hours) Vital Signs Temp Pulse Pulse Resp BP BP Pulse Ox 07/18/25 13:22 71 07/18/25 12:24 36.9 C 70 17 179/69 H 95 07/18/25 08:16 36.6 C 52 L 18 161/87 H 93 07/18/25 06:45 67 O2 Del Method 07/18/25 13:22 07/18/25 12:24 Room Air 07/18/25 08:16 Room Air 07/18/25 06:45 PG Care Time/CCT Total # of Minutes Spent Total Time Spent with Patient: Total time spent is greater than 50% in coordination of care (as documented) at patient's floor/unit and/or counseling patient: Coding Level of Care Code None
== END 2025-07-18 15:15 | disposition home or self-care (01) | DRG 204 ==
LOC: 2W 09:48 → ED 09:48 → SUATTDRO 14:24 → 2W 15:33